=== PATIENT | female | born 1970 | race Caucasian/White ===

== ENCOUNTER → 2016-11-06 | Outpatient (CLI) | payer BC ==
--- NOTE | 2016-11-06 17:15 | CT ---
EXAMINATION TYPE: CT Chest Abd Pelvis w con DATE OF EXAM: 11/06/2016 4:55 PM COMPARISON: Previous study dated 05/13/2016 HISTORY: Pt states of follow up for ovarian CA. CT DLP: 1589 mGycm Automated exposure control for dose reduction was used. TECHNIQUE: Helical acquisition through the abdomen and pelvis was obtained without oral contrast but following the intravenous administration of 100 mL of Omnipaque 300. The data was formatted in the a xial, coronal and sagittal projections. FINDINGS: There is minimal atelectasis at the left lung base. No parenchymal nodules are seen. The patient's hypodense lesion in the left lobe of the thyroid has increased in size from 1.6 cm to 1 .9 cm. There is no significant axillary, internal mammary, mediastinal or hilar lymph nodes identified. Ther e is no pleural or pericardial fluid. The heart is not enlarged. Within the abdomen, the liver, spleen and gallbladder are unremarkable. Both adrenal glands are normal. 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 There is a stable, 1.2 cm cyst in the upper pole of the righ t kidney. The pancreas is unremarkable. There is no significant retroperitoneal, iliac or inguinal adenopathy. The uterus and ovaries of been removed. The bladder is unremarkable. There is extensive diverticulosis of the sigmoid colon and left hemicolon. The appendix is not identi fied. Small bowel loops are normal. Right lower quadrant adenopathy appears to have resolved. There is no free fluid and no free air identified. No bony destructive lesion is seen. There is mild hypertrophic spondylosis in the mid dorsal spine. IMPRESSION: 1. NO EVIDENCE OF TUMOR RECURRENCE OR METASTATIC DISEASE. 2. SLIGHT ENLARGEMENT OF THE PATIENT'S LEFT-SIDED THYROID LESION. 3. HORSESHOE KIDNEY. 4. STABLE, 1.2 CM CYST IN THE UPPER POLE OF THE RIGHT KIDNEY. 5. STATUS POST HYSTERECTOMY AND BILATERAL OOPHORECTOMY. 6. UNCOMPLICATED DIVERTICULOSIS OF THE LEFT SIDE OF THE COLON. 7. RESOLUTION OF THE PATIENT'S RIGHT-SIDED MESENTERIC ADENOPATHY. 8. DEGENERATIVE CHANGES WITHIN THE SPINE.
== END | disposition home or self-care (01) ==
LOC: RADCTMAIN 14:15
PROVIDERS: ATTEND Internal Medicine Hematology & Oncology
DX: C56.1 Malignant neoplasm of right ovary (principal); E07.89 Other specified disorders of thyroid; N28.1 Cyst of kidney, acquired; K57.30 Diverticulosis of large intestine without perforation or abscess without bleeding; R59.0 Localized enlarged lymph nodes; Q63.1 Lobulated, fused and horseshoe kidney; Z90.710 Acquired absence of both cervix and uterus; Z90.721 Acquired absence of ovaries, unilateral
CPT/HCPCS: 71260; 74177; Q9967

== ENCOUNTER → 2017-01-04 | Day surgery (SDC) | payer BC ==
[2016-12-31 17:25] VITALS: BMI 31.6
--- NOTE | 2017-01-03 17:50 | HP ---
Nohemi Trujillo is a 46-year-old patient seen with persistent left shoulder adhesive capsulitis after previously having undergone shoulder arthroscopy. We discussed treatment options. She elected to proceed with manipulation under anesthesia of left shoulder with steroid injection. Consent was obtained. Her past medical history is depression, hypertension, osteoarthritis. Past surgical history is hysterectomy, left shoulder arthroscopy. Her daily medications are: 1. Ativan. 2. Tenormin. 3. Zoloft. 4. Naprosyn. ALLERGIES ARE PENICILLIN, ERYTHROMYCIN. SOCIAL HISTORY: Patient denies current tobacco use. PHYSICAL EVALUATION OF THE LEFT SHOULDER: Her previous arthroscopic portal sites appear well-healed. There is no erythema or hyperemia present. There is no evidence for infective process present. Flexion 80 degrees, abduction is 50 degrees, external rotation is 0 degrees with some weakness. Her distal neurovascular exam is intact. Radiographs of the left shoulder revealed a stable conversion to a flat anterior acromion. IMPRESSION: 1. Left shoulder adhesive capsulitis. 2. Status post left shoulder arthroscopic rotator cuff repair. PLAN: Left shoulder manipulation under anesthesia with steroid injection.
[~2017-01-04] MED LIST: BUPIVACAINE (PF) 0.25% 30 ML VIAL INTRAARTIC ONE; CLINDAMYCIN 900 MG in DEXTROSE 5% IN WATER 50 ML IVPB ONE; DEXAMETHASONE SOD PHOSPHATE 10 MG/ML 1 ML VIAL IV ONE; HYDROcodone/APAP 7.5-325MG 1 EACH TAB PO ONE; HYDROmorphone 1 MG/ML 1 ML SYRINGE IVP ONE; HYDROmorphone 1 MG/ML 1 ML SYRINGE IVP PRN; LACTATED RINGERS 1,000 ML IV SCH; LIDOCAINE 1% 20 ML VIAL (10MG/ML) FOR IV START INTRADERMA PRN; LIDOCAINE 1% INJ 10MG/ML (20 ML MDV) ONE; MIDAZOLAM 2 MG/2 ML VIAL IV PRN; MIDAZOLAM 2 MG/2 ML VIAL IVP ONE; ONDANSETRON 4 MG/2 ML VIAL IVP ONE; PROPOFOL 10 MG/ML 20 ML VIAL IV ONE; fentaNYL (PF) 50 MCG/ML 20 ML VIAL IVP PRN; methylPREDNISolone ACETATE 80 MG/ML 1 ML VIAL INTRAARTIC ONE
[2017-01-04 08:32] VITALS: TEMP 97.6
--- NOTE | 2017-01-04 11:02 | P.OP ---
Date of Procedure: 01/04/17 Preoperative Diagnosis: Left shoulder adhesive capsulitis Postoperative Diagnosis: Left shoulder adhesive capsulitis Procedure(s) Performed: Manipulation under anesthesia left shoulder with steroid injection Anesthesia: MAC Surgeon: Dustin Chu Estimated Blood Loss (ml): 0 Pathology: none sent Condition: stable Disposition: PACU Indications for Procedure: 46-year-old patient seen with left shoulder adhesive capsulitis. After having treatment options discussed, she elected to proceed with manipulation under anesthesia left shoulder with steroid injection. Description of Procedure: The patient was taken to a monitored area. The patient underwent IV sedation by the department of anesthesia. Once sufficient adequate analgesia was noted a manipulation was performed of the left shoulder. I was able to achieve 170 of flexion, 170 of abduction, 65-70 of external rotation. I received adequate internal rotation as well. The anterior aspect left shoulder was now prepped and draped in the normal sterile orthopedic fashion. A mixture of Depo- Medrol and Marcaine were injected into the glenohumeral joint sterile technique. A sterile Band-Aid was applied. The shoulder was again taken through range of motion. The patient was awakened having entire procedure well.
[2017-01-04 11:15] VITALS: RESP 18
[2017-01-04 12:30] VITALS: BP 118/75; PULSE 80
== END ==
LOC: OR 08:15
PROVIDERS: ATTEND Orthopaedic Surgery
DX: M75.02 Adhesive capsulitis of left shoulder (principal); F32.9 Major depressive disorder, single episode, unspecified; I10 Essential (primary) hypertension; M19.90 Unspecified osteoarthritis, unspecified site; Z88.1 Allergy status to other antibiotic agents; Z88.0 Allergy status to penicillin; Z88.8 Allergy status to other drugs, medicaments and biological substances; Z79.1 Long term (current) use of non-steroidal anti-inflammatories (NSAID); Z79.899 Other long term (current) drug therapy; Z98.890 Other specified postprocedural states
CPT/HCPCS: 23700; J2250; J1040; J1100; J2405; J2001; J1170; J2704

== ENCOUNTER → 2017-01-20 | Outpatient (CLI) | payer BC ==
--- NOTE | 2017-01-21 11:37 | MM ---
Reason for exam: screening (asymptomatic). Last mammogram was performed 2 years and 4 months ago. History: Patient is postmenopausal, has history of endometrial cancer at age 44, and has history of ovarian cancer at age 44. Physical Findings: A clinical breast exam by your physician is recommended on an annual basis and results should be correlated with mammographic findings. MG Screening Mammo w CAD Bilateral CC and MLO view(s) were taken. Prior study comparison: September 28, 2014, bilateral MG diagnostic mammo w CAD MARGARETTE. There are scattered fibroglandular densities. Finding: There is a 11.3mm high lobulated mass in the 12 o'clock position of the right breast. New finding since September 28, 2014. ASSESSMENT: Incomplete: need additional imaging evaluation, BI-RAD 0 RECOMMENDATION: Ultrasound of the right breast. [facility] will attempt to contact patient to return for ultrasound.
== END | disposition home or self-care (01) ==
LOC: RADMAMWWP 10:13
PROVIDERS: ATTEND Family Medicine
DX: Z12.31 Encounter for screening mammogram for malignant neoplasm of breast (principal)

== ENCOUNTER → 2017-02-18 | Outpatient (CLI) | payer BC ==
--- NOTE | 2017-02-18 09:41 | US ---
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 Follow up thyroid nodules, history of thyroid cy st aspiration GLAND SIZE: Right Lobe: 4.2 x 1.3 x 1.4 cm Overall Parenchyma: homogenous Left Lobe: 4.3 x 1.6 x 1.7 cm Overall Parenchyma: homogeneous Isthmus Thickness: 0.3 cm NODULES RIGHT: # of nodules measured on right: 1 1. 0.5 X 0.4 x 0.6 cm hypoechoic solid nodule at the mid pole with well-defined margins. This nodul e is wider than tall and shows no intranodular vascularity. Prior size: 0.4 x 0.3 x 0.4 cm LEFT: # of nodules measured on left: 1 1. 1.8 X 1.4 x 1.8 cm hypoechoic mixed nodule at the lower pole with well-defined margins. This nod ule is wider than tall and shows no intranodular vascularity. Prior size: 2.1 x 1.4 x 1.9 cm ISTHMUS: # of nodules measured in the isthmus: 0 Bilateral thyroid nodules as described above, bilateral neck scanned, multiple bilateral hypoechoic v ascular areas with largest on right 2.8cm and largest on left 1.6cm, probable lymph nodes. IMPRESSION: 1. Bilateral thyroid nodules appear essentially stable in size with slight reduction in size of the d ominant nodule on the left. 2. There does appear to be scattered areas of lymphadenopathy within the neck.
== END | disposition home or self-care (01) ==
LOC: RADUSMAIN 07:59
PROVIDERS: ATTEND Internal Medicine Endocrinology, Diabetes & Metabolism
DX: E04.2 Nontoxic multinodular goiter (principal)
CPT/HCPCS: 76536; 84439; 84443

== ENCOUNTER → 2017-05-07 | Outpatient (CLI) | payer BC ==
--- NOTE | 2017-05-07 09:25 | CT ---
EXAMINATION TYPE: CT ChestAbdPelvis w con DATE OF EXAM: 05/07/2017 COMPARISON: 11/06/2016 HISTORY: Ovarian CA follow up CT DLP: 1651.4 mGycm CONTRAST: CT scan of the chest, abdomen and pelvis is performed with Oral Contrast and with IV Contrast, patien t injected with 100 mL of Omnipaque 300. CT Chest: LUNGS: The lungs are clear and free of infiltrate. Small area of left basilar linear atelectasis.. No pulmonary nodule or mass is detected. No pleural effusion or CT evidence of interstitial lung disea se. MEDIASTINUM: Thoracic aorta is of normal caliber. The heart is not enlarged. No evidence for media stinal mass or adenopathy. HILAR STRUCTURES: No evidence for mass. No hilar adenopathy is appreciated. OTHER: Stable left thyroid nodule. CONTRAST CT ABDOMEN AND PELVIS FINDINGS: LIVER/GB: No calcified gallstones. There is evidence of hepatic steatosis. No space occupying hepa tic lesion. Biliary tree is of normal caliber. PANCREAS: No inflammation. No distinct mass. SPLEEN: No splenic enlargement. No lesion seen. ADRENALS: No nodule. No thickening. KIDNEYS/BLADDER: Changes of horseshoe kidney again noted. Right renal cyst identified. No hydronephr osis. No nephrolithiasis. BOWEL: Normal appendix. Normal bowel caliber. No inflammation. Scattered diverticulosis without div erticulitis. GENITAL ORGANS: Hysterectomy and bilateral oophorectomy. No evidence for tumor recurrence. No free fl uid. LYMPH NODES: No greater than 1cm abdominal or pelvic lymph nodes are appreciated. AORTA: No significant abnormality. OSSEOUS STRUCTURES: No significant abnormality is seen. OTHER: No significant additional abnormality is seen. IMPRESSION: 1. No evidence for tumor recurrence or metastatic disease. 2. Hysterectomy and bilateral oophorectomy. 3. Horseshoe kidney. 4. Fatty liver.
== END | disposition home or self-care (01) ==
LOC: RADCTMAIN 06:47
PROVIDERS: ATTEND Internal Medicine Hematology & Oncology
DX: C56.1 Malignant neoplasm of right ovary (principal); K76.0 Fatty (change of) liver, not elsewhere classified; Q63.1 Lobulated, fused and horseshoe kidney; Z90.710 Acquired absence of both cervix and uterus; Z90.722 Acquired absence of ovaries, bilateral
CPT/HCPCS: 71260; 74177; Q9967

== ENCOUNTER → 2017-07-28 | Outpatient (CLI) | payer BC ==
--- NOTE | 2017-07-29 08:09 | MM ---
Reason for exam: follow-up at short interval from prior study. Last mammogram was performed 6 months ago. History: Patient is postmenopausal, has history of endometrial cancer at age 44, and has history of ovarian cancer at age 44. Physical Findings: Nurse did not find any significant physical abnormalities on exam. MG 3D Diag Mammo W/Cad RT CC and MLO view(s) were taken of the right breast. Prior study comparison: January 20, 2017, bilateral MG screening mammo w CAD. September 28, 2014, bilateral MG diagnostic mammo w CAD MARGARETTE. The breast tissue is heterogeneously dense. This may lower the sensitivity of mammography. The previous central asymmetry has decreased in size and became less defined. Medial nodularity at a middle depth has also decreased in size. These results were verbally communicated with the patient and result sheet given to the patient on 07/28/17. ASSESSMENT: Incomplete: need additional imaging evaluation, BI-RAD 0 RECOMMENDATION: Ultrasound of the right breast.
--- NOTE | 2017-07-29 08:12 | USB ---
Reason for exam: additional evaluation requested from abnormal screening. History: Patient is postmenopausal, has history of endometrial cancer at age 44, and has history of ovarian cancer at age 44. US Breast RT Right breast ultrasound includes all four quadrants, the retroareolar region and axilla. Finding demonstrates a 5 x 3 x 4mm oval, mixed lesion at 4 o'clock probably a debris filled cyst, a 4 x 2 x 4mm oval, mixed lesion at 9 o'clock, a 2 x 2 x 3mm oval, cystic, benign lesion at 10 o'clock and a 6 x 4 x 5mm solid, hypoechoic, suspicious lesion at 3 o'clock for which a biopsy is recommended. These results were verbally communicated with the patient and result sheet given to the patient on 07/28/17. ASSESSMENT: Suspicious, BI-RAD 4 RECOMMENDATION: Surgical consultation and ultrasound core biopsy of the right breast. (3 o'clock) Called Dr. Gutierrez with mammographic findings and has scheduled an appointment for the patient for 08/17/17 at 8:[address] Pierce. Biopsy scheduled for 08/06/17 at 11:30. PRELIMINARY REPORT CALLED AND FAXED TO DR. PIERCE ON 07/29/17.
== END | disposition home or self-care (01) ==
LOC: RADMAMWWP 14:19
PROVIDERS: ATTEND Obstetrics & Gynecology
DX: R92.8 Other abnormal and inconclusive findings on diagnostic imaging of breast (principal)
CPT/HCPCS: 76641; G0206; G0279

== ENCOUNTER 2017-08-27 07:14 | Day surgery (SDC) | payer BC ==
[2017-08-25 10:44] VITALS: BMI 33.5
[~2017-08-27 07:14] MED LIST changes: -BUPIVACAINE (PF) 0.25% 30 ML VIAL INTRAARTIC ONE; -CLINDAMYCIN 900 MG in DEXTROSE 5% IN WATER 50 ML IVPB ONE; +HEPARIN SODIUM,PORCINE 5,000 UNIT/ML 1 ML VIAL SQ ONE; -HYDROcodone/APAP 7.5-325MG 1 EACH TAB PO ONE; -HYDROmorphone 1 MG/ML 1 ML SYRINGE IVP ONE; -LACTATED RINGERS 1,000 ML IV SCH; -LIDOCAINE 1% 20 ML VIAL (10MG/ML) FOR IV START INTRADERMA PRN; -LIDOCAINE 1% INJ 10MG/ML (20 ML MDV) ONE; -MIDAZOLAM 2 MG/2 ML VIAL IVP ONE; -PROPOFOL 10 MG/ML 20 ML VIAL IV ONE; +Pre Op ABX Message 1 EACH MISC MISCELLANE ONE; +SCOPOLAMINE 1.5MG/72HR PATCH TRANSDERM ONE; -fentaNYL (PF) 50 MCG/ML 20 ML VIAL IVP PRN; -methylPREDNISolone ACETATE 80 MG/ML 1 ML VIAL INTRAARTIC ONE
[2017-08-27] MEDS ORDERED: LIDOCAINE 1% 20 ML VIAL (10MG/ML) FOR IV START INTRADERMA ONE (08:20)
[2017-08-27] MEDS: LACTATED RINGERS 1,000 ML IV SCH ×2 (08:20→12:10)
--- NOTE | 2017-08-27 09:39 | MM ---
EXAMINATION TYPE: MG diagnostic mammo RT wo CAD DATE OF EXAM: 08/27/2017 COMPARISON: 08/06/2017 HISTORY: Post wire localization TECHNIQUE: Mediolateral and craniocaudal views of the right breast were obtained post wire localizati on under ultrasound guidance FINDINGS: Skin is marked with a BB. The wire is adjacent to the previously placed surgical clip confi rming clip placement. Likewise under ultrasound guidance the wire was evident through the lesion conf irming placement of the wire at the suspicious ultrasound abnormality. Images are reviewed with Dr. Rosette downing car in person by Dr. Herman. IMPRESSION: 1. Successful wire localization for excision.
--- NOTE | 2017-08-27 09:43 | USB ---
EXAMINATION TYPE: US breast localization RT DATE OF EXAM: 08/27/2017 COMPARISON: Ultrasound 08/06/2017, ultrasound 07/28/2017. CLINICAL HISTORY: R92.8 ABNORMAL MAMMOGRAM. Abnormal ultrasound. Pulmonary ultrasound imaging was performed to reidentify the ultrasound abnormality. The hypoechoic area with posterior shadowing is reidentified at this time. Additionally, the clip adjacent to the lesion was identified. The procedure was explained to the patient, the risks complications benefits. All questions were answered. Written and verbal informed consent was obtained. A timeout was performed. The skin was cleansed with Betadine. The skin and deeper breast tissue was anesthetized with 1% lidocaine. Under ultrasound guidance a 7 cm needle was placed through the ultrasound abnormality. The wire was deployed. Patient was imaged with mammography for wire localization confirmation. The post procedure mammographic images were labeled and transferred to the patient to presurgical holding. The patient tolerated the procedure very well. Mammographic images are reviewed with Dr. Thacker by Dr. Herman in person IMPRESSION: 1. Successful ultrasound-guided wire localization with postprocedure mammogram Pathology Results: Benign BREAST, RIGHT, IMAGE GUIDED WIRE LOCALIZATION AND RESECTION: BIOPSY SITE CHANGE AND SCAR. FIBROCYSTIC CHANGE (FOCALLY DENSE AND PROMINENT STROMAL FIBROSIS, CYST FORMATION, ADENOSIS, FIBROADENOMATOUS HYPERPLASIA, COLUMNAR CELL CHANGE, DUCT HYPERPLASIA AND CALCIFICATIONS). Recommendation Follow up mammogram of the right breast in 6 months. NILAM
[2017-08-27] MEDS ORDERED: diphenhydrAMINE 50 MG/ML 1 ML VIAL ONE (12:11)
[2017-08-27] MEDS ORDERED: DEXAMETHASONE SOD PHOS (MDV) 100 MG/10 ML VIAL ONE (12:11)
[2017-08-27] MEDS ORDERED: SUCCINYLCHOLINE CHLORIDE VIAL 200 MG/10 ML VIAL IV ONE (12:11)
[2017-08-27] MEDS ORDERED: MIDAZOLAM 2 MG/2 ML VIAL ONE (12:11)
[2017-08-27] MEDS ORDERED: KETAMINE 10 MG/ML 20 ML VIAL ONE (12:11)
[2017-08-27] MEDS ORDERED: PROPOFOL 10 MG/ML 20 ML VIAL IV ONE (12:11)
[2017-08-27] MEDS ORDERED: fentaNYL (PF) 50 MCG/ML 2 ML AMP ONE (12:11)
[2017-08-27] MEDS ORDERED: CLINDAMYCIN 150 MG/ML 4 ML VIAL IVPB ONE (12:38)
[2017-08-27] MEDS ORDERED: BUPIVACAINE-EPI 0.5%-1:200,000 10 ML VIAL SQ ONE ×2 (12:43)
[2017-08-27] MEDS ORDERED: LACTATED RINGERS 1,000 ML IV ONE (12:52)
[2017-08-27 13:56] VITALS: TEMP 98.3
--- NOTE | 2017-08-27 14:14 | P.OP ---
Date of Procedure: 08/27/17 Preoperative Diagnosis: Abnormal right breast ultrasound Status post ultrasound-guided core biopsy. Discordant pathology and ultrasound finding of right breast abnormality at 3:00 Prior history of ovarian cancer and underwent LAURA and BSO Postoperative Diagnosis: Same Procedure(s) Performed: Right breast wire localizion lumpectomy Anesthesia: MILAGROS Surgeon: Faiza Pierce Estimated Blood Loss (ml): 5 Pathology: other Disposition: PACU Indications for Procedure: 46 years old female with prior history of ovarian cancer status post total abdominal hysterectomy and bilateral salpingo-oophorectomy presented with right breast ultrasound abnormality at 3 o'clock position. This area was biopsied. However there is discordance between pathology and radiology findings and hence decision to proceed with wire localization lumpectomy. Operative Findings: The wire exited the right breast at 3 o'clock position. The specimen was inked as per protocol and sent for radiology confirmation for results of clip and wire. Description of Procedure: The mammogram films from wire localization biopsy were reviewed with radiologist Dr. Herman. The localization wire adjacent to the clip at 3 o clock. The patient was brought to the operating room and placed in supine position with both arms out. IV sedation was given as per anesthesia team. The excess wire was cut and right breast was prepped using ChloraPrep. Sterile drapes were applied. A timeout was performed to verify correct patient, correct procedure and correct side. Patient was confirmed to receive perioperative IV antibiotics, heparin 5000 units subcutaneous injection for DVT prophylaxis and bilateral SCDs. A 3 cm horizontal skin incision was made along natural skin crease overlying the wire. Superior and inferior subcutaneous flaps were raised in the direction of wire. A 2 cm circumferential breast tissue was removed around the wire and the tip of the wire was included in the specimen. The specimen was then labeled with different colors as per the protocol. It was sent off as a specimen for pathology. The resulting defect was irrigated with normal saline and checked for hemostasis. The defect measured 3 x 3 x 5cm. This was closed in 3 layers using 3-0 stratifix, interrupted sutures of 3-0 Vicryl followed by running subcuticular stitches of 4-0 Monocryl. Dermabond skin glue was applied. The sponge, instrument and needle count were correctx2. Phone formation received during surgery that the area of concern along with the clip and wire was included in the specimen. Patient tolerated the procedure well and was taken to post anesthesia care unit in stable condition. Final Pathologic Diagnosis BREAST, RIGHT, IMAGE GUIDED WIRE LOCALIZATION AND RESECTION: BIOPSY SITE CHANGE AND SCAR. FIBROCYSTIC CHANGE (FOCALLY DENSE AND PROMINENT STROMAL FIBROSIS, CYST FORMATION, ADENOSIS, FIBROADENOMATOUS HYPERPLASIA, COLUMNAR CELL CHANGE, DUCT HYPERPLASIA AND CALCIFICATIONS).
[2017-08-27 14:51] VITALS: BP 122/71; PULSE 95; RESP 18
--- NOTE | 2017-09-01 16:58 | MM ---
Mammogram specimen FINDINGS: Single mammographic specimen is presented. The surgical clip is adjacent to the wire within the specimen. Pulmonary results were provided to the operating room at the time of imaging. IMPRESSIONS: 1. Successful wire localization and excision. Pathology Results: Benign BREAST, RIGHT, IMAGE GUIDED WIRE LOCALIZATION AND RESECTION: BIOPSY SITE CHANGE AND SCAR. FIBROCYSTIC CHANGE (FOCALLY DENSE AND PROMINENT STROMAL FIBROSIS, CYST FORMATION, ADENOSIS, FIBROADENOMATOUS HYPERPLASIA, COLUMNAR CELL CHANGE, DUCT HYPERPLASIA AND CALCIFICATIONS). Recommendation Follow up mammogram of the right breast in 6 months. NILAM
== END 2017-08-27 15:20 | disposition home or self-care (01) ==
LOC: OR 07:14
PROVIDERS: ATTEND Surgery
DX: N60.31 Fibrosclerosis of right breast (principal); N60.01 Solitary cyst of right breast; N60.21 Fibroadenosis of right breast; R92.1 Mammographic calcification found on diagnostic imaging of breast; Z90.710 Acquired absence of both cervix and uterus; Z85.43 Personal history of malignant neoplasm of ovary; E78.00 Pure hypercholesterolemia, unspecified; I10 Essential (primary) hypertension; F32.9 Major depressive disorder, single episode, unspecified; F41.9 Anxiety disorder, unspecified; K21.9 Gastro-esophageal reflux disease without esophagitis; Z79.899 Other long term (current) drug therapy; Z88.1 Allergy status to other antibiotic agents; Z88.0 Allergy status to penicillin; Z88.8 Allergy status to other drugs, medicaments and biological substances
CPT/HCPCS: 88307; 76098; 19285; 19301; G0206; J2250; J0330; J1200; J1644; J1100 ×2; J2405; J3010; J2704

== ENCOUNTER → 2017-11-10 | Outpatient (CLI) | payer BC ==
[2017-11-10 17:00] LABS: Blood Urea Nitrogen 17 mg/dL (7-17)
--- NOTE | 2017-11-11 10:05 | CT ---
EXAMINATION TYPE: CT ChestAbdPelvis w con DATE OF EXAM: 11/11/2017 COMPARISON: 05/07/2017 HISTORY: Follow-up ovarian cancer. CT DLP: 1281.7 mGycm CONTRAST: CT scan of the chest, abdomen and pelvis is performed with Oral Contrast and with IV Contrast, patien t injected with 100 mL of Omnipaque 300. CT Chest: LUNGS: The lungs are clear and free of infiltrate or atelectasis. No pulmonary nodule or mass is det ected. No pleural effusion or CT evidence of interstitial lung disease. MEDIASTINUM: Thoracic aorta is of normal caliber. The heart is not enlarged. No evidence for media stinal mass or adenopathy. HILAR STRUCTURES: No evidence for mass. No hilar adenopathy is appreciated. OTHER: No significant abnormality. CONTRAST CT ABDOMEN AND PELVIS FINDINGS: LIVER/GB: No calcified gallstones. Hepatic steatosis with mild hepatomegaly. No space occupying hep atic lesion. Biliary tree is of normal caliber. PANCREAS: No inflammation. No distinct mass. SPLEEN: No splenic enlargement. No lesion seen. ADRENALS: No nodule. No thickening. KIDNEYS/BLADDER: Horseshoe kidney with tiny cyst upper pole right kidney. No hydronephrosis. No neph rolithiasis. BOWEL: Normal appendix. Normal bowel caliber. No inflammation. GENITAL ORGANS: Postoperative changes of hysterectomy and bilateral oophorectomy without evidence for tumor recurrence. LYMPH NODES: No greater than 1cm abdominal or pelvic lymph nodes are appreciated. AORTA: No significant abnormality. OSSEOUS STRUCTURES: No significant abnormality is seen. OTHER: No significant additional abnormality is seen. IMPRESSION: 1. No evidence for metastatic disease or recurrent disease. 2. Horseshoe kidney. 3. Hepatic steatosis with mild hepatomegaly.
== END | disposition home or self-care (01) ==
LOC: RADCTMAIN 14:46
PROVIDERS: ATTEND Internal Medicine Hematology & Oncology
DX: C56.9 Malignant neoplasm of unspecified ovary (principal); Q63.1 Lobulated, fused and horseshoe kidney; K76.0 Fatty (change of) liver, not elsewhere classified; R16.0 Hepatomegaly, not elsewhere classified
CPT/HCPCS: 82565; 84520; 71260; 74177; 36415; Q9967

== ENCOUNTER → 2018-02-11 | Outpatient (CLI) | payer BC ==
--- NOTE | 2018-02-14 07:45 | MM ---
Reason for exam: follow-up at short interval from prior study. Last mammogram was performed 6 months ago. History: Patient is postmenopausal, has history of endometrial cancer at age 44, and has history of ovarian cancer at age 44. Benign US breast localization RT of the right breast, August 27, 2017. Benign US biopsy breast VAD RT of the right breast, August 06, 2017. Physical Findings: Nurse did not find any significant physical abnormalities on exam. MG 3D Diag Mammo W/Cad MARGARETTE Bilateral CC and MLO view(s) were taken. Prior study comparison: August 27, 2017, right breast MG diagnostic mammo RT wo CAD. August 06, 2017, right breast MG diagnostic mammo RT wo CAD. The breast tissue is heterogeneously dense. This may lower the sensitivity of mammography. Finding: There are clips, architectural distortion in the lower quadrant of the right breast. Asymmetric breast tissue left stable medial aspect. These results were verbally communicated with the patient and result sheet given to the patient on 02/11/18. ASSESSMENT: Benign, BI-RAD 2 RECOMMENDATION: Routine screening mammogram of both breasts in 1 year.
== END | disposition home or self-care (01) ==
LOC: RADMAMWWP 14:29
PROVIDERS: ATTEND Family Medicine
DX: R92.8 Other abnormal and inconclusive findings on diagnostic imaging of breast (principal)
CPT/HCPCS: 77066; G0279

== ENCOUNTER → 2018-03-04 | Outpatient (CLI) | payer BC ==
--- NOTE | 2018-03-04 15:53 | US ---
EXAMINATION TYPE: US thyroid st tissue head/neck DATE OF EXAM: 03/04/2018 COMPARISON: US 02/18/2017 CLINICAL HISTORY: E04.2 GOITER. GLAND SIZE: Right Lobe: 3.6 x 1.6 x 1.1 cm Overall Parenchyma: homogenous Left Lobe: 3.8 x 1.5 x 1.1 cm Overall Parenchyma: homogeneous Isthmus Thickness: 0.2 cm NODULES RIGHT: # of nodules measured on right: 2 1. 0.4 X 0.3 x 0.3 cm hypoechoic mixed nodule at the mid pole with well-defined margins. This nodu le is wider as is tall and shows no intranodular vascularity. Prior size: 0.5 x 0.4 x 0.6 cm 2. 0.4 X 0.5 x 0.3 cm hypoechoic mixed nodule at the lower pole with well-defined margins. This nod ule is wider than tall and shows no intranodular vascularity. Prior size: not seen LEFT: # of nodules measured on left: 1 1. 0.9 X 0.9 x 0.9 cm hypoechoic mixed nodule at the lower pole with poorly defined margins. This nodule is wider as is tall and shows no intranodular vascularity. Prior size: 1.8 x 1.4 x 1.8 cm ISTHMUS: # of nodules measured in the isthmus: 0 Bilateral neck scanned, no evidence of lymphadenopathy. IMPRESSION: No interval enlargement of the bilateral thyroid nodules in comparison to the exam of 02/18/2017. An ad ditional 5 mm right thyroid nodule seen on today's examination. Continued surveillance is recommended .
[2018-03-04 16:07] LABS: T4, Free (Free Thyroxine) 1.05 ng/dL (0.78-2.19)
== END | disposition home or self-care (01) ==
LOC: RADUSWWP 14:43
PROVIDERS: ATTEND Internal Medicine Endocrinology, Diabetes & Metabolism
DX: E04.1 Nontoxic single thyroid nodule (principal)
CPT/HCPCS: 76536; 84439; 84443

== ENCOUNTER 2018-04-21 04:47 | Inpatient (IN) | payer BC ==
[2018-04-21 05:39] LABS: HCT 44.1 % (34.0-46.0); HGB 14.9 gm/dL (11.4-16.0); MCHC 33.8 g/dL (31.0-37.0); MCV 82.8 fL (80.0-100.0); Mean Platelet Volume 6.6; Platelet Count 282 k/uL (150-450); RBC 5.32 m/uL (3.80-5.40); RDW 13.9 % (11.5-15.5); WBC 3.4 k/uL (3.8-10.6)
[2018-04-21 05:49] LABS: Albumin 4.4 g/dL (3.5-5.0); Amylase 61 U/L (30-110); Anion Gap 18 mmol/L; Calcium 9.7 mg/dL (8.4-10.2); Carbon Dioxide 20 mmol/L (22-30); Chloride 104 mmol/L (98-107); Glucose 169 mg/dL (74-99); Lipase <10 U/L (23-300); Sodium 142 mmol/L (137-145); Total Bilirubin 1.9 mg/dL (0.2-1.3); Total Protein 7.8 g/dL (6.3-8.2)
[2018-04-21 05:53] LABS: Blood Urea Nitrogen 19 mg/dL (7-17); Potassium 3.8 mmol/L (3.5-5.1)
[2018-04-21 05:54] LABS: ALT 53 U/L (9-52); AST 49 U/L (14-36); Alkaline Phosphatase 128 U/L (38-126)
--- NOTE | 2018-04-21 05:56 | XR ---
EXAMINATION TYPE: XR KUB DATE OF EXAM: 04/21/2018 COMPARISON: 08/19/2014 HISTORY: Abdominal pain TECHNIQUE: 2 views FINDINGS: There is no sign of intestinal obstruction or pneumoperitoneum. There is a surgical clip in the left mid abdomen. There are clips apparently from cholecystectomy. There is blunting of left cos tophrenic angle. There is no evidence of a mass. IMPRESSION: Nonacute abdomen. Left pleural effusion and possible left lower lobe infiltrate.
[2018-04-21 06:03] LABS: Band Neutrophils % 15 %; Lymphocytes # (M) 0.48 k/uL (1.0-4.8); Monocytes # (M) 0.14 k/uL (0-1.0); Neutrophils % (M) 67 %; Nucleated Red Blood Cells 0 /100 WBC (0-0); Total Cells Counted 100
[2018-04-21] MEDS ORDERED: SODIUM CHLORIDE 0.9% 1,000 ML IV ONE ×2 (06:06→06:53)
[2018-04-21] MEDS ORDERED: MORPHINE SULFATE 2 MG/ML SYRINGE IV STA (06:06)
[2018-04-21] MEDS ORDERED: ONDANSETRON 4 MG/2 ML VIAL IVP STA (06:13)
[2018-04-21 06:19] LABS: Granular Casts,Urine 28 /lpf (0); Hyaline Casts,Urine 9 /lpf (0-2); Mucus,Urine Moderate /hpf; RBC,Urine 21 /hpf (0-5); Squamous Epithelial Cell,Urine 15 /hpf (0-4); WBC,Urine 70 /hpf (0-5)
--- NOTE | 2018-04-21 06:50 | CT ---
EXAMINATION TYPE: CT abdomen pelvis wo con DATE OF EXAM: 04/21/2018 COMPARISON: 11/10/2017 HISTORY: Abdominal pain for 4 days, diarrhea for [address] DLP: 1037 mGycm Automated exposure control for dose reduction was used. TECHNIQUE: Helical acquisition of images was performed from the lung bases through the pelvis. FINDINGS: There is patchy infiltrate and atelectasis at the lung bases. There is no pleural effusion. Heart siz e is normal. There is a small pneumoperitoneum. Liver shows no focal defect. Gallbladder is large and measures 3.8 cm in diameter. There is no evidence of a splenic mass. There is no pancreatic mass. There is no adrenal mass. There is horseshoe kidney. There is no hydronephrosis. There is extensive f at stranding around the sigmoid colon with numerous diverticula. There is sigmoid colon wall thickeni ng. There are clips in the right lower quadrant probably from appendectomy. I see no bony destructive process. Lumbar spine is intact. Bladder is empty. There are large bowel fluid levels. IMPRESSION: EXTENSIVE SIGMOID DIVERTICULOSIS WITH ALSO EVIDENCE OF SIGNIFICANT DIVERTICULITIS. INFLAMMATORY BALLESTEROS ES IN THE LARGE BOWEL MESENTERY. THERE IS SUGGESTION ALSO OF SOME MILD SMALL BOWEL INTESTINAL WALL TH ICKENING THAT COULD RELATE TO PERITONITIS. PNEUMOPERITONEUM. THIS IS CONSISTENT WITH DIVERTICULUM RUP TURE. MODERATE INFILTRATE AND ATELECTASIS AT THE LUNG BASES. THIS EXAM WAS DISCUSSED WITH ER PHYSICIAN AT 6 :45 AM.
[2018-04-21] MEDS ORDERED: AZTREONAM 2 GM in SODIUM CHLORIDE 0.9% 100 ML IVPB STA (06:52)
[2018-04-21] MEDS ORDERED: metroNIDAZOLE-NS PMX 500 MG in SALINE 1 100ML.BAG IVPB STA (06:53)
--- NOTE | 2018-04-21 06:56 | ED ---
Abdominal Pain HPI - General Chief Complaint: Abdominal Pain Stated Complaint: Abdominal Pain Time Seen by Provider: 04/21/18 05:37 Source: patient, family Mode of arrival: wheelchair Limitations: no limitations - History of Present Illness Initial Comments: This patient is a 47-year-old woman presenting to be evaluated for diffuse abdominal pain. Patient states that she had had a couple of days of constipation at the weekend and then she began having some diffuse abdominal pain as well as nausea and diarrhea. This got worse over the following day, and she has not been taking much in way of any oral intake. This morning she was feeling lightheaded and dizzy in addition to the pain and presents for evaluation. MD Complaint: abdominal pain Onset/Timin -: days(s) Location: diffuse Radiation: none Severity: severe Quality: aching Consistency: constant Improves With: nothing Worsens With: nothing Associated Symptoms: nausea, diarrhea - Related Data Home Medications Medication Instructions Recorded Confirmed Sertraline [Zoloft] 25 mg PO QAM 12/22/15 04/21/18 Acetaminophen Tab [Tylenol Tab] 650 mg PO Q6H PRN 04/21/18 04/21/18 LORazepam [Ativan] 0.5 mg PO BID PRN 04/21/18 04/21/18 Metoprolol Succinate (ER) [Toprol 12.5 mg PO DAILY 04/21/18 04/21/18 Xl] Multivitamin,Therapeutic [Thera] 1 tab PO DAILY 04/21/18 04/21/18 Phentermine HCl [Adipex-P] 37.5 mg PO QAM 04/21/18 04/21/18 Allergies Allergy/AdvReac Type Severity Reaction Status Date / Time erythromycin base Allergy Rash/Hives Verified 04/21/18 11:50 [Erythromycin Base] Penicillins Allergy Rash/Hives Verified 04/21/18 11:50 tamoxifen Allergy Anaphylaxis Verified 04/21/18 11:50 Review of Systems ROS Statement: Those systems with pertinent positive or pertinent negative responses have been documented in the HPI. ROS Other: All systems not noted in ROS Statement are negative. Constitutional: Reports: chills Respiratory: Denies: cough, dyspnea, wheezes Cardiovascular: Denies: chest pain, palpitations, syncope Gastrointestinal: Reports: abdominal pain, nausea, diarrhea. Denies: vomiting, melena, hematochezia Genitourinary: Denies: dysuria, hematuria Musculoskeletal: Denies: back pain Skin: Denies: rash Neurological: Denies: headache, weakness, numbness Past Medical History Past Medical History: Cancer, Musculoskeletal Disorder Additional Past Medical History / Comment(s): Endometrial Ovarian Cancer 2013. TACHYCARDIA History of Any Multi-Drug Resistant Organisms: None Reported Past Surgical History: Appendectomy, Breast Surgery, Hysterectomy, Orthopedic Surgery Additional Past Surgical History / Comment(s): 10/02/16 LT Rotator cuff sx; HYTERECTOMY 2013 SECONDARY OVARIAN CA., RT BREAST BX, ANAL SX AT , Past Anesthesia/Blood Transfusion Reactions: Motion Sickness, Postoperative Nausea & Vomiting (PONV) Additional Past Anesthesia/Blood Transfusion Reaction / Comment(s): STATES SEVERE NAUSEA LASTED FOR ONE MONTH POST HYSTERECTOMY. DIFFICULTY WAKING UP AFTER SURGERY PER PT. Past Psychological History: Anxiety, Depression Smoking Status: Never smoker - Past Family History Mother Family Medical History: Cancer Additional Family Medical History / Comment(s): THYROID Father Additional Family Medical History / Comment(s): Father from bowel blockage at the age of 69yrs. General Exam Limitations: no limitations General appearance: alert, in distress Head exam: Present: atraumatic, normocephalic Eye exam: Present: normal appearance. Absent: scleral icterus, conjunctival injection ENT exam: Present: mucous membranes dry Neck exam: Present: normal inspection Respiratory exam: Present: normal lung sounds bilaterally. Absent: respiratory distress, wheezes, rales, rhonchi, stridor Cardiovascular Exam: Present: normal rhythm, tachycardia (Rate approximately 128 at my exam), normal heart sounds. Absent: systolic murmur, diastolic murmur , rubs, gallop GI/Abdominal exam: Present: tenderness, guarding, rebound, diminished bowel sounds. Absent: soft, rigid, mass, pulsatile mass, hernia Extremities exam: Present: normal inspection, normal capillary refill. Absent: pedal edema, calf tenderness Back exam: Present: normal inspection. Absent: CVA tenderness (R), CVA tenderness (L) Neurological exam: Present: alert Skin exam: Present: warm, dry, intact, normal color. Absent: rash Course Vital Signs 04/21/18 04/21/18 04/21/18 04:51 05:53 06:38 Temperature 97.7 F Pulse Rate 138 H 92 121 H Respiratory 20 18 18 Rate Blood Pressure 96/62 98/54 128/71 O2 Sat by Pulse 95 96 96 Oximetry 04/21/18 04/21/18 06:51 07:13 Temperature 98 F Pulse Rate 116 H Respiratory 16 Rate Blood Pressure 119/74 O2 Sat by Pulse 95 Oximetry Medical Decision Making - Medical Decision Making Patient's 47-year-old woman here with abdominal pain. She is sent for computed tomography scan which does confirm there is some free air in the abdomen. Case is discussed with Dr. Staton, surgeon on-call tonight, and he will come see the patient. She is started on IV antibiotic therapy. - Lab Data Result diagrams: 04/22/18 06:21 04/22/18 06:21 Lab Results 04/21/18 04/21/18 04/21/18 Range/Units 05:10 05:10 05:10 WBC 3.4 L (3.8-10.6) k/uL RBC 5.32 (3.80-5.40) m/uL Hgb 14.9 (11.4-16.0) gm/dL Hct 44.1 (34.0-46.0) % MCV 82.8 (80.0-100.0) fL MCH 28.0 (25.0-35.0) pg MCHC 33.8 (31.0-37.0) g/dL RDW 13.9 (11.5-15.5) % Plt Count 282 (150-450) k/uL Neutrophils % (Manual) 67 % Band Neutrophils % 15 % Lymphocytes % (Manual) 14 % Monocytes % (Manual) 4 % Neutrophils # (Manual) 2.70 (1.3-7.7) k/uL Lymphocytes # (Manual) 0.48 L (1.0-4.8) k/uL Monocytes # (Manual) 0.14 (0-1.0) k/uL Nucleated RBCs 0 (0-0) /100 WBC Manual Slide Review Performed Sodium 142 (137-145) mmol/L Potassium 3.8 (3.5-5.1) mmol/L Chloride 104 (98-107) mmol/L Carbon Dioxide 20 L (22-30) mmol/L Anion Gap 18 mmol/L BUN 19 H (7-17) mg/dL Creatinine 0.94 (0.52-1.04) mg/dL Est GFR (CKD-EPI)AfAm 83 (>60 ml/min/1.73 sqM) Est GFR (CKD-EPI)NonAf 72 (>60 ml/min/1.73 sqM) Glucose 169 H (74-99) mg/dL Plasma Lactic Acid Itz 1.6 (0.7-2.0) mmol/L Calcium 9.7 (8.4-10.2) mg/dL Total Bilirubin 1.9 H (0.2-1.3) mg/dL AST 49 H (14-36) U/L ALT 53 H (9-52) U/L Alkaline Phosphatase 128 H (38-126) U/L Total Protein 7.8 (6.3-8.2) g/dL Albumin 4.4 (3.5-5.0) g/dL Amylase 61 (30-110) U/L Lipase <10 L (23-300) U/L Urine Color Urine Appearance (Clear) Urine pH (5.0-8.0) Ur Specific Mobile (1.001-1.035) Urine Protein (Negative) Urine Glucose (UA) (Negative) Urine Ketones (Negative) Urine Blood (Negative) Urine Nitrite (Negative) Urine Bilirubin (Negative) Urine Urobilinogen (<2.0) mg/dL Ur Leukocyte Esterase (Negative) Urine RBC (0-5) /hpf Urine WBC (0-5) /hpf Ur Squamous Epith Cells (0-4) /hpf Hyaline Casts (0-2) /lpf Granular Casts (0) /lpf Urine Mucus (None) /hpf 04/21/18 Range/Units 05:55 WBC (3.8-10.6) k/uL RBC (3.80-5.40) m/uL Hgb (11.4-16.0) gm/dL Hct (34.0-46.0) % MCV (80.0-100.0) fL MCH (25.0-35.0) pg MCHC (31.0-37.0) g/dL RDW (11.5-15.5) % Plt Count (150-450) k/uL Neutrophils % (Manual) % Band Neutrophils % % Lymphocytes % (Manual) % Monocytes % (Manual) % Neutrophils # (Manual) (1.3-7.7) k/uL Lymphocytes # (Manual) (1.0-4.8) k/uL Monocytes # (Manual) (0-1.0) k/uL Nucleated RBCs (0-0) /100 WBC Manual Slide Review Sodium (137-145) mmol/L Potassium (3.5-5.1) mmol/L Chloride (98-107) mmol/L Carbon Dioxide (22-30) mmol/L Anion Gap mmol/L BUN (7-17) mg/dL Creatinine (0.52-1.04) mg/dL Est GFR (CKD-EPI)AfAm (>60 ml/min/1.73 sqM) Est GFR (CKD-EPI)NonAf (>60 ml/min/1.73 sqM) Glucose (74-99) mg/dL Plasma Lactic Acid Itz (0.7-2.0) mmol/L Calcium (8.4-10.2) mg/dL Total Bilirubin (0.2-1.3) mg/dL AST (14-36) U/L ALT (9-52) U/L Alkaline Phosphatase (38-126) U/L Total Protein (6.3-8.2) g/dL Albumin (3.5-5.0) g/dL Amylase (30-110) U/L Lipase (23-300) U/L Urine Color Yellow Urine Appearance Slightly Cloudy H (Clear) Urine pH 6.0 (5.0-8.0) Ur Specific Mobile 1.035 (1.001-1.035) Urine Protein 3+ H (Negative) Urine Glucose (UA) Negative (Negative) Urine Ketones 1+ H (Negative) Urine Blood Negative (Negative) Urine Nitrite Negative (Negative) Urine Bilirubin 2+ H (Negative) Urine Urobilinogen 4.0 (<2.0) mg/dL Ur Leukocyte Esterase Moderate (Negative) Urine RBC 21 H (0-5) /hpf Urine WBC 70 H (0-5) /hpf Ur Squamous Epith Cells 15 H (0-4) /hpf Hyaline Casts 9 H (0-2) /lpf Granular Casts 28 (0) /lpf Urine Mucus Moderate H (None) /hpf Critical Care Time Critical Care Time: Yes (30 minutes) Disposition Clinical Impression: Diverticulitis, Abdominal pain Disposition: ADMITTED IP TO THIS [facility] Condition: Serious
[2018-04-21] MEDS ORDERED: MORPHINE SULFATE 2 MG/ML SYRINGE IV PRN (07:02)
[2018-04-21] MEDS ORDERED: NALOXONE 0.4 MG/ML 1 ML VIAL IV PRN ×2 (07:02→12:53)
[2018-04-21 07:09] LABS: Appearance,Urine Slightly Cloudy (Clear); Color,Urine Yellow
[2018-04-21 07:10] LABS: Specific Gravity,Urine 1.035 (1.001-1.035)
[2018-04-21 07:11] LABS: Glucose,Urine (UA) Negative (Negative); Protein,Urine 3+ (Negative)
[2018-04-21 07:12] LABS: Bilirubin,Urine 2+ (Negative); Blood,Urine Negative (Negative); Ketones,Urine 1+ (Negative)
[2018-04-21 07:13] LABS: Leukocyte Esterase,Urine Moderate (Negative); Nitrite,Urine Negative (Negative)
[2018-04-21] MEDS: metroNIDAZOLE-NS PMX 500 MG in SALINE 1 100ML.BAG IVPB SCH ×2 (08:19→18:05)
--- NOTE | 2018-04-21 09:10 | P.GSHP ---
History of Present Illness H&P Date: 04/21/18 47-year-old female presents to the hospital after 2 days of abdominal pain that has been worsening. She states that she has had pain in her bilateral lower quadrants that has begin to increase in severity. She complains of some nausea episodes but denies any emesis. She also complains of some diarrhea episodes. She states that due to the pain, she began to feel shaky and was having sweats. It was at this point that she presented to the hospital. On workup in the emergency department, she was found to have. She states that with the ring of antibiotics that her pain is somewhat relieved. She states that the pain is still very intense. She denies ever having a colonoscopy. She states her only abdominal surgical history is a hysterectomy. She states that she has never had a severe episode of diverticulitis in the past. - Review of Systems All systems: negative Past Medical History Past Medical History: Cancer Additional Past Medical History / Comment(s): 2013 Endometrial Ovarian Cancer 2013 with surgery and chemo, tachycardia. History of Any Multi-Drug Resistant Organisms: None Reported Past Surgical History: Appendectomy, Breast Surgery, Hysterectomy, Orthopedic Surgery Additional Past Surgical History / Comment(s): 10/02/16 LT Rotator cuff sx and then manipulation, HYTERECTOMY 2013 SECONDARY OVARIAN CA., RT BREAST BENIGN BX , ANAL SX AT , Past Anesthesia/Blood Transfusion Reactions: Motion Sickness, Postoperative Nausea & Vomiting (PONV) Additional Past Anesthesia/Blood Transfusion Reaction / Comment(s): STATES SEVERE NAUSEA LASTED FOR ONE MONTH POST HYSTERECTOMY. DIFFICULTY WAKING UP AFTER SURGERY PER PT. Smoking Status: Never smoker - Past Family History Mother Family Medical History: Cancer Additional Family Medical History / Comment(s): THYROID CA Father Additional Family Medical History / Comment(s): Father from bowel blockage at the age of 69yrs. Medications and Allergies Home Medications Medication Instructions Recorded Confirmed Type Atenolol [Tenormin] 25 mg PO QAM 12/22/15 08/25/17 History Sertraline [Zoloft] 25 mg PO QAM 12/22/15 08/25/17 History Cholecalciferol [Vitamin D3] 1,000 unit PO DAILY 10/02/16 08/25/17 History [place]-3 Fatty Acids/Fish Oil [Fish 1 each PO HS 12/31/16 08/25/17 History Oil 1,000 mg Softgel] Tumeric (Unsure Dose) 1 cap PO HS 12/31/16 08/25/17 History Docusate [Colace] 100 mg PO BID #30 capsule 08/27/17 Rx Hydrocodone/Acetaminophen [[place] 1 each PO Q6HR PRN #10 tab 08/27/17 Rx 5-325] Allergies Allergy/AdvReac Type Severity Reaction Status Date / Time erythromycin base Allergy Rash/Hives Verified 04/21/18 04:54 [Erythromycin Base] Penicillins Allergy Rash/Hives Verified 04/21/18 04:54 tamoxifen Allergy Anaphylaxis Verified 04/21/18 04:54 Surgical - Exam Osteopathic Statement: *. No significant issues noted on an osteopathic structural exam other than those noted in the History and Physical/Consult. Vital Signs Temp Pulse Resp BP Pulse Ox 97.7 F 138 H 20 96/62 95 04/21/18 04:51 04/21/18 04:51 04/21/18 04:51 04/21/18 04:51 04/21/18 04:51 - General well nourished, no distress - Neck trachea midline - Respiratory No difficulty with respiration - Abdomen Soft, tender to palpation in bilateral lower quadrant, tender to percussion in bilateral lower quadrant, nondistended, positive rebound tenderness - Psychiatric oriented to time, oriented to person, oriented to place, speech is normal Results - Labs 04/21/18 05:10 04/21/18 05:10 Abnormal Lab Results - Last 24 Hours (Table) 04/21/18 04/21/18 04/21/18 Range/Units 05:10 05:10 05:55 WBC 3.4 L (3.8-10.6) k/uL Lymphocytes # (Manual) 0.48 L (1.0-4.8) k/uL Carbon Dioxide 20 L (22-30) mmol/L BUN 19 H (7-17) mg/dL Glucose 169 H (74-99) mg/dL Total Bilirubin 1.9 H (0.2-1.3) mg/dL AST 49 H (14-36) U/L ALT 53 H (9-52) U/L Alkaline Phosphatase 128 H (38-126) U/L Lipase <10 L (23-300) U/L Urine Appearance Slightly Cloudy H (Clear) Urine Protein 3+ H (Negative) Urine Ketones 1+ H (Negative) Urine Bilirubin 2+ H (Negative) Urine RBC 21 H (0-5) /hpf Urine WBC 70 H (0-5) /hpf Ur Squamous Epith Cells 15 H (0-4) /hpf Hyaline Casts 9 H (0-2) /lpf Urine Mucus Moderate H (None) /hpf Diabetes panel 04/21/18 Range/Units 05:10 Sodium 142 (137-145) mmol/L Potassium 3.8 (3.5-5.1) mmol/L Chloride 104 (98-107) mmol/L Carbon Dioxide 20 L (22-30) mmol/L BUN 19 H (7-17) mg/dL Creatinine 0.94 (0.52-1.04) mg/dL Glucose 169 H (74-99) mg/dL Calcium 9.7 (8.4-10.2) mg/dL AST 49 H (14-36) U/L ALT 53 H (9-52) U/L Alkaline Phosphatase 128 H (38-126) U/L Total Protein 7.8 (6.3-8.2) g/dL Albumin 4.4 (3.5-5.0) g/dL Calcium panel 04/21/18 Range/Units 05:10 Calcium 9.7 (8.4-10.2) mg/dL Albumin 4.4 (3.5-5.0) g/dL Pituitary panel 04/21/18 Range/Units 05:10 Sodium 142 (137-145) mmol/L Potassium 3.8 (3.5-5.1) mmol/L Chloride 104 (98-107) mmol/L Carbon Dioxide 20 L (22-30) mmol/L BUN 19 H (7-17) mg/dL Creatinine 0.94 (0.52-1.04) mg/dL Glucose 169 H (74-99) mg/dL Calcium 9.7 (8.4-10.2) mg/dL Adrenal panel 04/21/18 Range/Units 05:10 Sodium 142 (137-145) mmol/L Potassium 3.8 (3.5-5.1) mmol/L Chloride 104 (98-107) mmol/L Carbon Dioxide 20 L (22-30) mmol/L BUN 19 H (7-17) mg/dL Creatinine 0.94 (0.52-1.04) mg/dL Glucose 169 H (74-99) mg/dL Calcium 9.7 (8.4-10.2) mg/dL Total Bilirubin 1.9 H (0.2-1.3) mg/dL AST 49 H (14-36) U/L ALT 53 H (9-52) U/L Alkaline Phosphatase 128 H (38-126) U/L Total Protein 7.8 (6.3-8.2) g/dL Albumin 4.4 (3.5-5.0) g/dL - Imaging CT scan - abdomen: report reviewed, image reviewed (There is a moderate amount of inflammation to the sigmoid colon along with some notable pneumoperitoneum) CT scan - pelvis: report reviewed, image reviewed Assessment and Plan (1) Diverticulitis Narrative/Plan: 47-year-old female with ruptured diverticulitis - Patient continues to need IV fluid resuscitation, we'll continue with boluses and IV fluids - Antibiotics, patient was started on antibiotics in the emergency department and will continue on the floor - Keep patient nothing by mouth - Insert urinary Burch catheter - Plan for operating room for a Abraham's procedure Current Visit: Yes Status: Acute Code(s): K57.92 - DVTRCLI OF INTEST, PART UNSP, W/O PERF OR ABSCESS W/O BLEED SNOMED Code(s): 787215998
[2018-04-21] MEDS ORDERED: IV FLUID CONTINUATION 1,000 ML IV ONE (11:50)
[2018-04-21] MEDS ORDERED: ONDANSETRON 4 MG/2 ML VIAL IVP ONE (12:25)
[2018-04-21] MEDS ORDERED: DEXAMETHASONE SOD PHOSPHATE 10 MG/ML 1 ML VIAL IV ONE (12:28)
[2018-04-21] MEDS ORDERED: fentaNYL (PF) 50 MCG/ML 2 ML AMP IV ONE (12:30)
[2018-04-21] MEDS ORDERED: MIDAZOLAM 2 MG/2 ML VIAL IV ONE (12:30)
[2018-04-21] MEDS ORDERED: HEPARIN SODIUM,PORCINE 5,000 UNIT/ML 1 ML VIAL SQ ONE (12:53)
[2018-04-21] MEDS ORDERED: PROPOFOL 10 MG/ML 20 ML VIAL IV ONE (13:24)
[2018-04-21] MEDS ORDERED: LIDOCAINE 1% INJ 10MG/ML (20 ML MDV) ONE (13:24)
[2018-04-21] MEDS ORDERED: VECURONIUM 10 MG VIAL IV ONE (13:24)
[2018-04-21] MEDS ORDERED: GLYCOPYRROLATE 0.2 MG/ML 2 ML VIAL ONE (13:24)
[2018-04-21] MEDS ORDERED: NEOSTIGMINE 1 MG/ML 10 ML VIAL ONE (13:24)
[2018-04-21] MEDS ORDERED: fentaNYL (PF) 50 MCG/ML 2 ML AMP ONE (13:24)
[2018-04-21] MEDS ORDERED: MIDAZOLAM 2 MG/2 ML VIAL ONE (13:24)
[2018-04-21] MEDS ORDERED: SUCCINYLCHOLINE CHLORIDE 100 MG/5 ML SYR IV ONE (13:24)
[2018-04-21] MEDS ORDERED: LACTATED RINGERS 1,000 ML IV ONE ×3 (13:45→15:19)
[2018-04-21 14:43] VITALS: BMI 31.7
--- NOTE | 2018-04-21 15:42 | P.OP ---
Date of Procedure: 04/21/18 Preoperative Diagnosis: Perforated diverticulitis Postoperative Diagnosis: Perforated sigmoid diverticulitis with intraperitoneal stool and pus Procedure(s) Performed: Abraham's procedure - sigmoid colectomy with end colostomy creation Anesthesia: MILAGROS Surgeon: Mariano Staton Estimated Blood Loss (ml): 125 Pathology: other (Sigmoid colon) Condition: stable Disposition: floor Indications for Procedure: 47-year-old female presented to the emergency department with 3 days of abdominal pain that was increasing in intensity. On exam, the patient did have peritoneal signs and on CT of the abdomen and pelvis which shown to have ruptured diverticulitis. Secondary to this, and expiratory laparotomy with bowel resection was planned. The patient was explained the risks, benefits and alternatives to the procedure and did provide consent prior to attending the operating suite. Operative Findings: Perforated diverticulitis with multiple fluid pockets full of pus and stool, dilated small bowel Description of Procedure: the patient the patient was placed in supine position and general endotracheal anesthesia was induced. Tacho were performed using both preinduction and pre- incision safety checklists to verify correct patient, procedure, site and additional clinical information prior to beginning the procedure. Preoperative antibiotics and subcutaneous heparin was given. A urinary catheter was placed and orogastric tube was placed. The abdomen was prepped and draped in the usual sterile fashion. A vertical midline incision was made from above the umbilicus to the pubis. This was deepened through the subcutaneous tissues to the level of the fascia. The linea alba was identified and incised, the peritoneal cavity entered. The abdomen was explored. There were notable adhesions from her previous laparotomy and these were lysed sharply under direct vision with Metzenbaum scissors. A sigmoid colon perforation with surrounding purulence and stool in the left lower quadrant was found. Suction was used to clear the multiple pockets of purulence and feculent material. The small bowel was inspected and retracted towards the right upper quadrant using a moist towel and the Bookwalter retractor system. The sigmoid colon and descending colon were then mobilized by incising along the white line of Toldt proximally from the pelvic inlet towards the splenic flexure. The left ureter was identified and protected. Points of transection were selected proximally and distally to the affected bowel. This was noted in the sigmoid colon. Proximally, mesenteric defect was created in the colon was divided with a linear cutting stapler. The distal point of transection was divided in a similar fashion using a linear stapler. The peritoneum overlying the mesentery was then scored with electrocautery and the mesentery between the colonic transection points was divided and ligated using a LigaSure device. The specimen was removed and sent to pathology. The abdominal cavity was then copiously irrigated. The proximal colon reached easily to the proposed colostomy site without tension. A circular disc of skin was excised from the colostomy site in the left lower quadrant. The incision was deepened through all the layers of the abdominal wall. The anterior rectus sheath was incised vertically, and the muscle was bluntly split. The posterior rectus sheath and the peritoneum were incised vertically and the resultant defect was dilated to admit 2 fingers. A Barnhart clamp was then placed through the colostomy skin incision into the abdominal cavity and used to grasp the stapled proximal bowel. The colon was passed out through the ostomy site without torsion or tension. The fascia was closed with a running PDS suture. The skin was closed with skin camille. The staple line was removed from the proximal colon and the colostomy was then matured using multiple 3-0 Vicryl sutures in interrupted fashion. Dressings were applied and an ostomy bag was applied over the colostomy. The patient was awakened in the operating suite and taken to postanesthesia care unit in stable condition.
[2018-04-21] MEDS: ROPIVACAINE 250 MG, HYDROMORPHONE (PF) 5 MG in SODIUM CHLORIDE 0.9% 200 ML EPIDURAL PRN ×2 (15:48→17:03)
[2018-04-21] MEDS ORDERED: cefTRIAXone IN SWFI 1,000 MG/10 ML SYRINGE IVP SCH (16:00)
[2018-04-21] MEDS: SODIUM CHLORIDE 0.9% 1,000 ML IV SCH ×3 (16:38→22:14)
[2018-04-21] MEDS: PANTOPRAZOLE 40 MG/10 ML VIAL IV SCH (16:38)
[2018-04-21] MEDS: HEPARIN SODIUM,PORCINE 5,000 UNIT/ML 1 ML VIAL SQ SCH (17:40)
[2018-04-21] MEDS: KETOROLAC 30 MG/ML 1 ML VIAL IVP SCH (18:34)
[2018-04-21] MEDS: ONDANSETRON 4 MG/2 ML VIAL IVP PRN (22:14)
[2018-04-21] MEDS ORDERED: LORazepam 0.5 MG TAB PO PRN (22:39)
[2018-04-22] MEDS: metroNIDAZOLE-NS PMX 500 MG in SALINE 1 100ML.BAG IVPB SCH ×3 (01:25→15:48)
[2018-04-22] MEDS: KETOROLAC 30 MG/ML 1 ML VIAL IVP SCH ×4 (01:25→15:56)
[2018-04-22] MEDS: HEPARIN SODIUM,PORCINE 5,000 UNIT/ML 1 ML VIAL SQ SCH ×3 (01:26→15:48)
[2018-04-22] MEDS: SODIUM CHLORIDE 0.9% 1,000 ML IV SCH ×3 (06:06→21:14)
--- NOTE | 2018-04-22 06:15 | CONS ---
CONSULTATION DATE OF CONSULTATION: April 21, 2018 REASON FOR CONSULTATION: Medical management requested by Dr. Staton. CONSULTATION: This is a pleasant 47-year-old patient of Dr. Solorio whose chronic stable medical conditions include anxiety, depression, tachycardia, which have been under control. For 3 days, patient started off with increasing abdominal pain, more so in the lower abdomen that progressed to get worse. The patient presented to the ER in the early hours of this morning. The patient also was having constipation and then started having some diarrhea. She also having some nausea and has lightheaded and dizzy. There was no fever and chills. CT scan showed free air. I came to see the patient earlier today but patient had already gone to the operating room. Subsequently patient was found to have a perforated sigmoid colon, end colostomy was carried out. Fecal swelling of the peritoneum was noted. This was cleaned out. The patient now has a colostomy. Some pain is present. REVIEW OF SYSTEMS: CONSTITUTIONAL: Tired. HEENT none. RESPIRATORY none. CARDIOVASCULAR none. GASTROINTESTINAL: As above. GENITOURINARY: None. MUSCULOSKELETAL: None. DERMATOLOGIC, HEMATOLOGIC, LYMPHATIC: None. PSYCHIATRY: Anxiety/depression controlled. NEUROLOGICAL: None. PAST MEDICAL HISTORY: Endometrial ovarian cancer status post surgery and chemo, tachycardia, anxiety and depression. PAST SURGICAL HISTORY: Surgical history of appendectomy, breast surgery, hysterectomy, left rotator cuff surgery, hysterectomy secondary to ovarian cancer, right breast benign biopsy and anal surgery at . SOCIAL HISTORY: . Works at [employer]. No smoking. No alcohol. FAMILY HISTORY: Of thyroid cancer. HOME MEDICATIONS: Tylenol 650 mg q.6h p.r.n., Zoloft 25 mg a day, Adipex P 37.5 p.o. daily, multivitamin 1 tablet p.o. daily, Toprol-XL 12.5 p.o. daily, Ativan 0.5 p.o. b.i.d. p.r.n. ALLERGIES: ERYTHROMYCIN, PENICILLIN And TAMOXIFEN. PHYSICAL EXAMINATION: VITAL SIGNS: Vital signs on presentation, temperature 97.7, pulse 138, respiration 20, blood pressure 96/62, pulse ox 95% on room air. GENERAL APPEARANCE: Well built, BMI 31.8. Lying in bed, tired-appearing. EYES: Pupils equal. Conjunctivae normal. HEENT: External appearance of nose and ears normal. Oral cavity dry mucous membranes. NECK: JVD not raised. Mass not palpable. RESPIRATORY: Effort normal. LUNGS: Are clear. CARDIOVASCULAR: 1st and 2nd sounds normal. No edema. ABDOMEN: Tender. Colostomy bag in place. No guarding or rigidity. Liver and spleen not palpable. LYMPHATICS: No lymph nodes palpable in the neck and axilla. PSYCHIATRY: Alert and oriented x3. Mood and affect normal. INVESTIGATIONS: White count 3.4, hemoglobin 14.4, potassium 3.8, BUN 19, creatinine 0.94, bilirubin 1.9. CT scan of the abdomen and pelvis extensive sigmoid diverticulosis. There are evidence of diverticulitis and pneumoperitoneum. ASSESSMENT: 1. Acute severe diverticulitis with perforation and peritoneal swelling. 2. Sigmoid diverticulosis. 3. Obesity BMI 31.8. 4. Anxiety and depression not otherwise specified. 5. Sinus tachycardia. 6. End colostomy created. PLAN: Patient is on IV ceftriaxone, Flagyl and IV pain medications. We will resume patient's home medications with a sip of water. Pain control is in place and patient has got Venodyne boots in place. Care was discussed with the patient. Questions were answered. Thank you Dr. Staton for this consultation. Copy to Dr. Solorio. MMODL / IJN: [id number] /
[2018-04-22 06:50] LABS: Anion Gap 10 mmol/L; Blood Urea Nitrogen 22 mg/dL (7-17); Calcium 8.1 mg/dL (8.4-10.2); Carbon Dioxide 21 mmol/L (22-30); Chloride 112 mmol/L (98-107); Glucose 105 mg/dL (74-99); Potassium 3.9 mmol/L (3.5-5.1); Sodium 143 mmol/L (137-145)
[2018-04-22 06:53] LABS: Basophils % (A) 0 %; Eosinophils % (A) 0 %; HCT 33.7 % (34.0-46.0); Lymphocytes # (A) 0.4 k/uL (1.0-4.8); Lymphocytes % (A) 8 %; MCH 27.6 pg (25.0-35.0); MCHC 31.9 g/dL (31.0-37.0); MCV 86.5 fL (80.0-100.0); Mean Platelet Volume 6.6; Monocytes # (A) 0.3 k/uL (0-1.0); Monocytes % (A) 6 %; Neutrophils # (A) 4.2 k/uL (1.3-7.7); Neutrophils % (A) 85 %; Platelet Count 251 k/uL (150-450); RBC 3.89 m/uL (3.80-5.40); RDW 14.3 % (11.5-15.5)
[2018-04-22 07:00] LABS: HGB 10.8 gm/dL (11.4-16.0)
--- NOTE | 2018-04-22 07:24 | CONS ---
CONSULTATION DATE OF SERVICE: 04/21/2018 REASON FOR CONSULTATION: Perforated bowel. HISTORY OF PRESENT ILLNESS: The patient is a 47-year-old female who presented to the ER at [facility] early this morning with chief complaint of diffuse abdominal pain. The patient's pain has been going on for a few days and has been associated with constipation. The pain has been mostly diffuse across the abdominal area associated with nausea and some diarrhea and poor oral intake and has been feeling dizzy. With these symptoms the patient has been evaluated by the ER physician. The patient did have a CT abdomen and pelvis completed which shows extensive sigmoid diverticulosis with also evidence of sigmoid diverticulitis, inflammatory changes of large bowel mesentery and suggestive of small bowel intestinal wall thickening with concern for possible diverticulitis rupture. Subsequently the patient has been evaluated by General Surgery. She was taken to the OR where the patient had been diagnosed with perforated diverticulitis with intraperitoneal stool and pus. The Hartmann's procedure, sigmoid colectomy with end colostomy creation. The patient had been started on Rocephin and Flagyl, because of her PENICILLIN allergy. Infectious Disease was consulted for further recommendation of antibiotic therapy. Most of the information has been obtained from the chart as the patient was seen in postop. The patient was just recovering from anesthesia and was unable to provide a reliable history. REVIEW OF SYSTEMS: Could not be reliably obtained. The positive points have been mentioned in the HPI. PAST MEDICAL HISTORY: Significant for endometrial ovarian cancer. PAST SURGICAL HISTORY: Appendectomy, hysterectomy, rotator cuff surgery and right breast biopsy which was benign. SOCIAL HISTORY: No history of smoking, drinking, or drug use. FAMILY HISTORY: Mother with history of thyroid cancer. Father from a small bowel obstruction age of 69. ALLERGIES: ERYTHROMYCIN BASED and PENICILLIN along with TAMOXIFEN. MEDICATION: Currently the patient is on Rocephin 1 gram daily. She is on heparin, Toradol, Ativan, Flagyl, morphine sulfate, Narcan, Zofran, Protonix, Zoloft, and recent dose of aztreonam 2 grams daily. PHYSICAL EXAMINATION: On examination, her blood pressure is 102/66 with a pulse of 98, temperature is 98.8. She is currently 96% on 2 L of nasal cannula. General description is a middle age female lying in bed in no distress. No tachypnea or accessory muscle of respiration use. HEENT examination shows no pallor or scleral icterus. Oral mucous membrane is dry. No pharyngeal erythema or thrush. NECK: Trachea central. No thyromegaly. LUNGS: Unlabored breathing, clear to auscultation anteriorly. No wheeze or crackle. HEART: S1, S2. Regular rate and rhythm. No added sounds. ABDOMEN: Soft, mildly distended. No guarding or rigidity. No organomegaly. EXTREMITIES: No edema of feet. SKIN EXAMINATION: No rash or mass palpable. NEUROLOGIC: The patient is currently lethargic though is arousable, oriented x2. Mood and affect normal. LABS: Hemoglobin 14 9, white count of 3.4 with a BUN of 19, creatinine 0.94. Liver enzymes slightly elevated. UA was mildly positive. cultures currently pending. DIAGNOSTIC IMPRESSION AND PLAN: 1. Patient with secondary peritonitis from perforated sigmoid diverticulitis. Will need to cover for the enteric gram-negative both aerobes and anaerobes. The patient has not been on antibiotic in the recent past could be more likely sensitive pathogen such as an Escherichia coli. 2. The patient noted to have PENICILLIN, ERYTHROMYCIN allergy limiting the number of antibiotics could be safely used. PLAN: 1. Will increase Rocephin to 2 gram IV piggyback daily and continue Flagyl 500 mg every 8 hours. 2. Gentle IV fluid. 3. We will follow her clinical condition as well as cultures to further adjust medication if needed. Thank you for this consultation. Will follow this patient along with you. MMODL / IJN: [id number] /
--- NOTE | 2018-04-22 08:26 | P.PN ---
Progress Note - Text Date: 04/22/2018 Time: 07:13 The patient is status post exploratory laparotomy, postoperative day number 1 The patient has no complaints of nausea vomiting or headache. The patient does not complain of any lower extremity numbness or weakness. The epidural is running at 7 mL per hour. VAS 1-10. The epidural will be maintained and adjusted as needed.
[2018-04-22] MEDS: METOPROLOL SUCCINATE (ER) 25 MG TAB.ER.24H PO SCH (08:59)
[2018-04-22] MEDS: SERTRALINE 25 MG TAB PO SCH (08:59)
[2018-04-22] MEDS: ONDANSETRON 4 MG/2 ML VIAL IVP PRN ×2 (08:59→17:13)
[2018-04-22] MEDS: PANTOPRAZOLE 40 MG/10 ML VIAL IV SCH (08:59)
[2018-04-22] MEDS ORDERED: cefTRIAXone IN SWFI 1,000 MG/10 ML SYRINGE IVP SCH (09:00)
[2018-04-22] MEDS: Phentermine Hcl [Adipex-P] 37.5 MG PO SCH (11:20)
--- NOTE | 2018-04-22 14:43 | P.PN ---
Subjective Progress Note Date: 04/22/18 Patient seen and examined at bedside. States pain is well-controlled and is currently a 1 out of 10. No output from ostomy at this time. Urinary catheter is in place. Epidural is in place. She denies any emesis episodes. Does complain of some nausea. Objective - Vital Signs Vital signs: Vital Signs Temp 99.1 F 04/22/18 07:22 Pulse 99 04/22/18 07:22 Resp 16 04/22/18 07:22 BP 99/63 04/22/18 07:22 Pulse Ox 91 L 04/22/18 07:22 Intake & Output 04/21/18 04/22/18 04/22/18 18:59 06:59 18:59 Intake Total 2879 1000 Output Total 725 680 250 Balance 2154 320 -250 Weight 83.915 kg Intake: IV 2879 Intake, IV Titration 1000 Amount Ropivacaine 250 mg 67 Hydromorphone (Pf) 5 mg In Sodium Chloride 0.9% 200 ml @ Per Protocol EPIDURAL .Q0M PRN Rx#: [id number] Sodium Chloride 0.9% 1, 833 000 ml @ 150 mls/hr IV . Q6H40M [facility] Rx#:[id number] metroNIDAZOLE-NS PMX 500 100 mg In Saline 1 100ml.bag @ 100 mls/hr IVPB Q8HR [facility] Rx#:[id number] Output: Urine 600 680 250 Estimated Blood Loss 125 Other: Voiding Method Indwelling Catheter Indwelling Catheter Indwelling Catheter # Voids 1 # Bowel Movements 0 - Constitutional General appearance: Present: cooperative, no acute distress - Respiratory Details: No difficulty with respiration - Gastrointestinal Gastrointestinal Comment(s): Soft, appropriate tenderness, nondistended, no rebound, no guarding, ostomy site is pink and patent - Psychiatric Psychiatric: Present: A&O x's 3, appropriate affect - Labs CBC & Chem 7: 04/22/18 06:21 04/22/18 06:21 Labs: Abnormal Lab Results - Last 24 Hours (Table) 04/22/18 04/22/18 Range/Units 06:21 06:21 Hgb 10.8 L D (11.4-16.0) gm/dL Hct 33.7 L (34.0-46.0) % Lymphocytes # 0.4 L (1.0-4.8) k/uL Chloride 112 H (98-107) mmol/L Carbon Dioxide 21 L (22-30) mmol/L BUN 22 H (7-17) mg/dL Glucose 105 H (74-99) mg/dL Calcium 8.1 L (8.4-10.2) mg/dL Microbiology - Last 24 Hours (Table) 04/21/18 07:04 Blood Culture - Preliminary Blood No Growth after 24 hours 04/21/18 14:19 Gram Stain - Preliminary Abdomen Wound Culture - Preliminary 04/21/18 14:19 Anaerobic Culture - Preliminary Abdominal Fluid Assessment and Plan (1) Diverticulitis Narrative/Plan: 47-year-old female with perforated diverticulitis, postoperative day #1 status post exploratory laparotomy and Abraham's procedure - Continue nothing by mouth, okay for ice chips, okay for medications with sips of water - Continue urinary catheter while epidural is in place - Continue IV fluids - Increase activity, incentive spirometry - Appreciate ID recommendations for antibiotics - Appreciate medical recommendations - Progressing slowly Current Visit: Yes Status: Acute Code(s): K57.92 - DVTRCLI OF INTEST, PART UNSP, W/O PERF OR ABSCESS W/O BLEED SNOMED Code(s): 169115562
[2018-04-22] MEDS: ROPIVACAINE 250 MG, HYDROMORPHONE (PF) 5 MG in SODIUM CHLORIDE 0.9% 200 ML EPIDURAL PRN (17:41)
--- NOTE | 2018-04-22 23:48 | PN ---
PROGRESS NOTE DATE OF SERVICE: 04/22/2018. REASON FOR FOLLOWUP: Secondary peritonitis from perforated diverticulitis. INTERVAL HISTORY: The patient is afebrile. The abdominal pain is currently controlled with pain medication. The patient denies any nausea or vomiting. Denies any chest pain or shortness of breath or cough. EXAMINATION: Blood pressure 137/70 with a pulse of 91, temperature 98.1, she is 97% on room air. General description is a middle-aged female lying in bed in no distress. Respiratory system, unlabored breathing. Clear to auscultation anteriorly. Heart S1 and S2, regular rate and rhythm. Abdomen soft. No guarding or rigidity. Extremities no edema of the feet. LABS: Hemoglobin is 10.2, white count 5.0, BUN of 22, creatinine 0.73. The abdominal culture is showing gram-negative bacilli. DIAGNOSTIC IMPRESSION AND PLAN: Patient with secondary peritonitis from perforated sigmoid diverticulitis, status post diverting colostomy. The patient, at this time, is to continue Rocephin and Flagyl because of her PENICILLIN allergy, adjusting it further based on the culture and clinical response. Continue supportive care. MMODL / IJN: [id number] /
[2018-04-23] MEDS: SODIUM BICARBONATE TAB 650 MG TAB PO SCH ×4 (00:32→20:33)
[2018-04-23] MEDS: KETOROLAC 30 MG/ML 1 ML VIAL IVP SCH ×5 (00:32→23:28)
[2018-04-23] MEDS: HEPARIN SODIUM,PORCINE 5,000 UNIT/ML 1 ML VIAL SQ SCH ×4 (00:32→23:29)
[2018-04-23] MEDS: SODIUM CHLORIDE 0.9% 1,000 ML IV SCH ×4 (00:33→21:25)
[2018-04-23] MEDS: metroNIDAZOLE-NS PMX 500 MG in SALINE 1 100ML.BAG IVPB SCH ×4 (00:33→23:28)
--- NOTE | 2018-04-23 00:56 | PN ---
PROGRESS NOTE DATE OF SERVICE: April 22, 2018. PRESENTING COMPLAINT: Abdominal surgery. INTERVAL HISTORY: This is a patient status post sigmoid colectomy for perforated diverticulitis. Lying in bed, comfortable. No stool out of the colostomy bag. at the bedside. NG tube was taken out. The patient has got a epidural in place. REVIEW OF SYSTEMS: Done for constitutional, cardiovascular, GI, pulmonary; relevant findings as above. CURRENT MEDICATIONS: Reviewed that include epidural. PHYSICAL EXAMINATION: VITAL SIGNS: Temperature 99.1, pulse 99, respirations 16, blood pressure 98/63, pulse ox 91% on 3 L. GENERAL APPEARANCE: Lying in bed. Comfortable. Awake. EYES: Pupils equal. Conjunctivae normal. HEENT: External appearance of nose and ears normal. Oral cavity dry. NECK: JVD not raised. Mass not palpable. RESPIRATORY: Effort normal. LUNGS are clear. CARDIOVASCULAR: 1st and 2nd sounds normal. No edema. ABDOMEN: Tender, soft, bowel sounds sluggish. Colostomy bag is present. PSYCHIATRY: Alert and oriented x3. Mood and affect normal. INVESTIGATIONS: White count 5, hemoglobin 10.8, potassium 3.9, bicarb 21. ASSESSMENT: 1. Acute severe diverticulitis with perforation and peritoneal swelling. 2. Sigmoid colectomy with end colostomy created. 3. Sigmoid diverticulosis. 4. Obesity; BMI 31.8. 5. Anxiety, depression not otherwise specified. 6. Sinus tachycardia. 7. Acute blood loss anemia expected from surgery. 8. Metabolic acidosis from above. PLAN: Continue current medication and treatment plan. Patient getting IV fluids. The patient did have epidural in place. Care was discussed with the patient and at the bedside. MMODL / IJN: [id number] /
[2018-04-23 06:59] LABS: Basophils % (A) 0 %; Eosinophils # (A) 0.1 k/uL (0-0.7); Eosinophils % (A) 2 %; HCT 31.6 % (34.0-46.0); HGB 10.3 gm/dL (11.4-16.0); Lymphocytes # (A) 0.7 k/uL (1.0-4.8); Lymphocytes % (A) 11 %; MCH 27.8 pg (25.0-35.0); MCHC 32.6 g/dL (31.0-37.0); MCV 85.3 fL (80.0-100.0); Mean Platelet Volume 6.9; Monocytes # (A) 0.2 k/uL (0-1.0); Monocytes % (A) 3 %; Neutrophils # (A) 5.4 k/uL (1.3-7.7); Neutrophils % (A) 84 %; Platelet Count 280 k/uL (150-450); RBC 3.71 m/uL (3.80-5.40); RDW 14.4 % (11.5-15.5); WBC 6.4 k/uL (3.8-10.6)
[2018-04-23 07:25] LABS: Anion Gap 11 mmol/L; Blood Urea Nitrogen 22 mg/dL (7-17); Calcium 8.6 mg/dL (8.4-10.2); Carbon Dioxide 19 mmol/L (22-30); Chloride 115 mmol/L (98-107); Glucose 80 mg/dL (74-99); Potassium 4.1 mmol/L (3.5-5.1); Sodium 145 mmol/L (137-145)
[2018-04-23] MEDS: PANTOPRAZOLE 40 MG/10 ML VIAL IV SCH (08:50)
[2018-04-23] MEDS: cefTRIAXone IN SWFI 2,000 MG/20 ML SYRINGE IVP SCH (08:50)
[2018-04-23] MEDS: METOPROLOL SUCCINATE (ER) 25 MG TAB.ER.24H PO SCH (08:51)
[2018-04-23] MEDS: SERTRALINE 25 MG TAB PO SCH (08:51)
[2018-04-23] MEDS: Phentermine Hcl [Adipex-P] 37.5 MG PO SCH (09:14)
--- NOTE | 2018-04-23 10:42 | P.PN ---
Subjective Progress Note Date: 04/23/18 Patient seen and examined at bedside. She is currently in a chair at bedside. She states pain level is well-controlled. Urinary catheter is in place with continued urinary output. She denies any emesis episodes but does complain of some nausea. She has not had any ostomy output. Objective - Vital Signs Vital signs: Vital Signs Temp 97.6 F 04/23/18 01:23 Pulse 98 04/23/18 01:23 Resp 16 04/23/18 01:23 BP 112/73 04/23/18 01:23 Pulse Ox 92 L 04/23/18 01:23 Intake & Output 04/22/18 04/23/18 04/23/18 18:59 06:59 18:59 Intake Total 740 Output Total 475 225 Balance -475 515 Intake: Oral 740 Output: Urine 475 225 Other: Voiding Method Indwelling Catheter Indwelling Catheter - Constitutional General appearance: Present: cooperative, no acute distress - Respiratory Details: No difficulty with respiration - Gastrointestinal Gastrointestinal Comment(s): Soft, appropriate tenderness, nondistended, no rebound, no guarding, ostomy is pink and patent - Musculoskeletal Musculoskeletal: Present: generalized weakness - Psychiatric Psychiatric: Present: A&O x's 3, appropriate affect - Labs CBC & Chem 7: 04/23/18 06:24 04/23/18 06:24 Labs: Abnormal Lab Results - Last 24 Hours (Table) 04/23/18 04/23/18 Range/Units 06:24 06:24 RBC 3.71 L (3.80-5.40) m/uL Hgb 10.3 L (11.4-16.0) gm/dL Hct 31.6 L (34.0-46.0) % Lymphocytes # 0.7 L (1.0-4.8) k/uL Chloride 115 H (98-107) mmol/L Carbon Dioxide 19 L (22-30) mmol/L BUN 22 H (7-17) mg/dL Microbiology - Last 24 Hours (Table) 04/21/18 07:04 Blood Culture - Preliminary Blood No Growth after 48 hours 04/21/18 14:19 Gram Stain - Preliminary Abdomen Wound Culture - Preliminary Gram Neg Bacilli Assessment and Plan (1) Diverticulitis Narrative/Plan: 47-year-old female with perforated diverticulitis, postoperative day #2 status post exploratory laparotomy and Abraham's procedure - Continue nothing by mouth, okay for ice chips, okay for medications with sips of water - Continue urinary catheter while epidural is in place - Continue IV fluids - Increase activity, incentive spirometry - Appreciate ID recommendations for antibiotics - Appreciate medical recommendations - Progressing slowly Current Visit: Yes Status: Acute Code(s): K57.92 - DVTRCLI OF INTEST, PART UNSP, W/O PERF OR ABSCESS W/O BLEED SNOMED Code(s): 753691126
[2018-04-23] MEDS: ONDANSETRON 4 MG/2 ML VIAL IVP PRN ×2 (12:07→20:33)
--- NOTE | 2018-04-23 20:10 | P.PN ---
Progress Note - Text 04/23 3319 47-year-old female status post exploratory lap by Dr. Staton. Patient has an epidural catheter for postop pain control with the solution running at 7 mL an hour. She has a pain score of 1, with no motor or sensory deficits. Plan to continue epidural infusion.
[2018-04-23] MEDS: ROPIVACAINE 250 MG, HYDROMORPHONE (PF) 5 MG in SODIUM CHLORIDE 0.9% 200 ML EPIDURAL PRN (20:33)
[2018-04-24] MEDS: LACTATED RINGERS 1,000 ML IV SCH ×3 (01:46→21:39)
--- NOTE | 2018-04-24 03:40 | PN ---
PROGRESS NOTE DATE OF SERVICE: 04/23/2018. REASON FOR FOLLOWUP: Secondary peritonitis from a perforated diverticulitis. INTERVAL HISTORY: The patient is afebrile. She is currently breathing comfortably. Denies significant chest pain or shortness of breath or cough. Slight nausea but no vomiting. Abdominal pain is currently controlled with pain medication. EXAMINATION: Blood pressure 117/72 with a pulse of 93, temperature 99.3. She is 93% on room air. General description is a middle-aged female up in the bed in no distress. Respiratory system: Unlabored breathing, clear to auscultation anteriorly. HEART: S1, S2. Regular rate and rhythm. Abdomen soft, no tenderness. LABS: Hemoglobin 10 with white count 6.4, BUN of 22, creatinine 0.67. Abdominal cultures with gram-negative bacilli. DIAGNOSTIC IMPRESSION AND PLAN: Patient secondary peritonitis from ruptured diverticulitis, status post laparotomy and diverting colostomy. Plan at this time is keep the patient on Rocephin and Flagyl adjusting it further based on the culture report. Continue supportive care. MMODL / IJN: [id number] /
--- NOTE | 2018-04-24 04:22 | PN ---
PROGRESS NOTE DATE OF SERVICE: April 23, 2018. PRESENTING COMPLAINT: Abdominal surgery. INTERVAL HISTORY: Patient is status post sigmoid colectomy for perforated diverticulitis. Sitting up in a chair. Feels better. Pain is better controlled. Has got an epidural in place. No stool in the colostomy bag. No chest pain or short of breath. The patient is allowed ice chips. REVIEW OF SYSTEMS: Done for constitutional, cardiovascular, GI, pulmonary and relevant findings as above. CURRENT MEDICATIONS: Reviewed and include IV Flagyl, ceftriaxone. PHYSICAL EXAMINATION: VITAL SIGNS: Temperature 98.3, pulse 87, respirations 16, blood pressure 108/78. GENERAL APPEARANCE: Sitting up in a chair, more comfortable. EYES: Pupils are equal. Conjunctivae normal. HEENT: External appearance of nose and ears normal. Oral cavity dry. NECK: JVD not raised. Mass not palpable. RESPIRATORY: Effort normal. LUNGS are clear. CARDIOVASCULAR: 1st and 2nd sounds normal. No edema. ABDOMEN: Soft, tender. Bowel sounds are present. Colostomy bag in place. No stool. PSYCHIATRY: Alert and oriented x3. Mood and affect normal. INVESTIGATIONS: White count 6.4, hemoglobin 10.3, potassium 4.1. ASSESSMENT: 1. Acute severe diverticulitis with perforation and peritoneal soiling. 2. Sigmoid colectomy with end colostomy. 3. Sigmoid diverticulosis. 4. Obesity; BMI 31.8. 5. Anxiety and depression, not otherwise specified. 6. Sinus tachycardia. 7. Acute blood loss anemia expected from surgery. 8. Metabolic acidosis from above. PLAN: Clinically patient overall doing better. Continue current medication and treatment plan. We will switch patient's saline to in view of hyperchloremia. MMODL / IJN: [id number] /
[2018-04-24] MEDS: KETOROLAC 30 MG/ML 1 ML VIAL IVP SCH ×4 (05:58→23:08)
[2018-04-24 07:10] LABS: Basophils % (A) 0 %; Eosinophils # (A) 0.1 k/uL (0-0.7); Eosinophils % (A) 2 %; HCT 30.8 % (34.0-46.0); HGB 9.8 gm/dL (11.4-16.0); Lymphocytes # (A) 0.8 k/uL (1.0-4.8); Lymphocytes % (A) 16 %; MCH 27.3 pg (25.0-35.0); MCHC 31.8 g/dL (31.0-37.0); MCV 85.7 fL (80.0-100.0); Mean Platelet Volume 6.3; Monocytes # (A) 0.2 k/uL (0-1.0); Monocytes % (A) 4 %; Neutrophils # (A) 4.1 k/uL (1.3-7.7); Neutrophils % (A) 76 %; Platelet Count 305 k/uL (150-450); RBC 3.59 m/uL (3.80-5.40); RDW 14.9 % (11.5-15.5); WBC 5.3 k/uL (3.8-10.6)
[2018-04-24 07:21] LABS: Anion Gap 10 mmol/L; Blood Urea Nitrogen 18 mg/dL (7-17); Calcium 8.3 mg/dL (8.4-10.2); Carbon Dioxide 22 mmol/L (22-30); Chloride 111 mmol/L (98-107); Glucose 79 mg/dL (74-99); Potassium 3.7 mmol/L (3.5-5.1); Sodium 143 mmol/L (137-145)
[2018-04-24] MEDS: HEPARIN SODIUM,PORCINE 5,000 UNIT/ML 1 ML VIAL SQ SCH ×3 (07:43→23:08)
[2018-04-24] MEDS: metroNIDAZOLE-NS PMX 500 MG in SALINE 1 100ML.BAG IVPB SCH ×3 (07:43→23:08)
[2018-04-24] MEDS ORDERED: POTASSIUM CHLORIDE 20 MEQ in WATER FOR INJECTION 1 100ML.BAG IVPB STA (07:59)
--- NOTE | 2018-04-24 08:02 | P.PN ---
Subjective Progress Note Date: 04/24/18 Patient seen and examined at bedside. Comfortable with epidural in place. Continues to make good urine. Denies nausea or emesis episodes. There is no output in the ostomy bag as of yet. She is requesting apple juice. Objective - Vital Signs Vital signs: Vital Signs Temp 98.0 F 04/24/18 01:08 Pulse 89 04/24/18 01:08 Resp 16 04/24/18 01:08 BP 117/72 04/24/18 01:08 Pulse Ox 93 L 04/24/18 01:08 Intake & Output 04/23/18 04/24/18 04/24/18 18:59 06:59 18:59 Intake Total 1974 625.567 Output Total 500 Balance 1974 125.567 Intake: Intake, IV Titration 1475 625.567 Amount Ropivacaine 250 mg 188.067 Hydromorphone (Pf) 5 mg In Sodium Chloride 0.9% 200 ml @ Per Protocol EPIDURAL .Q0M PRN Rx#: [id number] Sodium Chloride 0.9% 1, 1375 437.5 000 ml @ 125 mls/hr IV . Q8H [facility] Rx#:[id number] metroNIDAZOLE-NS PMX 500 100 mg In Saline 1 100ml.bag @ 100 mls/hr IVPB Q8HR [facility] Rx#:[id number] Oral 500 Output: Urine 500 Other: Voiding Method Indwelling Catheter Indwelling Catheter - Constitutional General appearance: Present: cooperative, no acute distress - Respiratory Details: No difficulty with respiration - Gastrointestinal Gastrointestinal Comment(s): Soft, appropriate tenderness, nondistended, no rebound, no audible bowel sounds , ostomy is pink and patent with no output, midline incision with prevena dressing - Musculoskeletal Musculoskeletal: Present: generalized weakness - Psychiatric Psychiatric: Present: A&O x's 3, appropriate affect - Labs CBC & Chem 7: 04/24/18 06:46 04/24/18 06:46 Labs: Abnormal Lab Results - Last 24 Hours (Table) 04/24/18 04/24/18 Range/Units 06:46 06:46 RBC 3.59 L (3.80-5.40) m/uL Hgb 9.8 L (11.4-16.0) gm/dL Hct 30.8 L (34.0-46.0) % Lymphocytes # 0.8 L (1.0-4.8) k/uL Chloride 111 H (98-107) mmol/L BUN 18 H (7-17) mg/dL Calcium 8.3 L (8.4-10.2) mg/dL Microbiology - Last 24 Hours (Table) 04/21/18 07:04 Blood Culture - Preliminary Blood No Growth after 48 hours Assessment and Plan (1) Diverticulitis Narrative/Plan: 47-year-old female with perforated diverticulitis, postoperative day #3 status post exploratory laparotomy and Abraham's procedure - There are no active bowel sounds and patient has not had any ostomy output, Continue nothing by mouth, okay for ice chips, okay for medications with sips of water - Continue urinary catheter while epidural is in place - Continue IV fluids - Increase activity, incentive spirometry - Appreciate ID recommendations for antibiotics - Appreciate medical recommendations - Progressing slowly Current Visit: Yes Status: Acute Code(s): K57.92 - DVTRCLI OF INTEST, PART UNSP, W/O PERF OR ABSCESS W/O BLEED SNOMED Code(s): 345829028
[2018-04-24] MEDS: METOPROLOL SUCCINATE (ER) 25 MG TAB.ER.24H PO SCH (08:41)
[2018-04-24] MEDS: cefTRIAXone IN SWFI 2,000 MG/20 ML SYRINGE IVP SCH (08:41)
[2018-04-24] MEDS: SERTRALINE 25 MG TAB PO SCH (08:42)
[2018-04-24] MEDS: SODIUM BICARBONATE TAB 650 MG TAB PO SCH ×3 (08:42→21:08)
[2018-04-24] MEDS: PANTOPRAZOLE 40 MG/10 ML VIAL IV SCH (09:02)
[2018-04-24] MEDS: Phentermine Hcl [Adipex-P] 37.5 MG PO SCH (09:02)
--- NOTE | 2018-04-24 20:20 | PN ---
PROGRESS NOTE DATE OF SERVICE: April 24, 2018. PRESENTING COMPLAINT: Abdominal surgery. INTERVAL HISTORY: Patient is status post sigmoid colectomy for perforated diverticulitis. Sitting up on a chair and is on ice chips. Epidural remains in place. Pain is better controlled. No output through the colostomy bag. Breathing is stable. REVIEW OF SYSTEMS: Done for constitutional, cardiovascular, GI, pulmonary and relevant findings as above. CURRENT MEDICATIONS: Reviewed that include IV Flagyl and ceftriaxone. PHYSICAL EXAMINATION: VITAL SIGNS: Temperature 97.8, pulse 70, respiration 16, blood pressure 114/88. Pulse ox 93% on room air. GENERAL APPEARANCE: Sitting up in a chair, comfortable. EYES : Pupils are equal. Conjunctivae normal. HEENT: External appearance of nose and ears normal. Oral cavity dry. NECK: JVD not raised. Mass not palpable. RESPIRATORY effort normal. LUNGS are clear. CARDIOVASCULAR: 1st and 2nd sounds normal. No edema. ABDOMEN: Soft, nontender. Bowel sounds present. Colostomy bag in place. No stool. PSYCHIATRY: Alert and oriented x3. Mood and affect normal. INVESTIGATIONS: White count 5.3, hemoglobin 9.8, chloride 111. ASSESSMENT: 1. Acute severe diverticulitis with perforation with peritoneal swelling. 2. Sigmoid colectomy with end colostomy. 3. Sigmoid diverticulosis. 4. Obesity BMI 31.8. 5. Anxiety, depression not otherwise specified. 6. Sinus tachycardia. 7. Acute blood loss anemia expected from surgery. 8. Metabolic acidosis from above. 9. Hyperchloremia. PLAN: Continue current medication and treatment plan. The patient's IV fluids was changed to LR yesterday. Care was discussed with the patient. The patient did ambulate a bit. MMODL / IJN: [id number] /
[2018-04-24] MEDS: ONDANSETRON 4 MG/2 ML VIAL IVP PRN (22:23)
--- NOTE | 2018-04-24 22:56 | PN ---
PROGRESS NOTE DATE OF SERVICE: 04/24/2018. REASON FOR FOLLOWUP: Secondary peritonitis from a perforated diverticulitis. INTERVAL HISTORY: The patient is afebrile. She has been breathing comfortably. Denies significant chest pain or cough. Abdominal pain is currently controlled. No nausea, no vomiting. EXAMINATION: Blood pressure 134/77 with a pulse of 69, temperature 98.5, she is 92% on 2 L nasal cannula. General description is a middle-aged female up in the chair in no distress. Respiratory system, unlabored breathing. Clear to auscultation. Heart S1, S2. Regular rate and rhythm. No abdominal tenderness. LABS: Hemoglobin 9.8, white count 5.3 with a BUN of 18, creatinine 0.60. Abdominal cultures did show an E coli sensitive to ceftriaxone and rifampin. DIAGNOSTIC IMPRESSION AND PLAN: Patient with abdominal abscess and secondary peritonitis from perforated diverticulitis status post diverting colostomy. The abdominal cultures are showing E coli and . The patient will be continued on Rocephin and Flagyl. Hopefully finish therapy with oral antibiotics once her wound is improved. Continue supportive care. MMODL / IJN: [id number] /
[2018-04-25] MEDS: KETOROLAC 30 MG/ML 1 ML VIAL IVP SCH ×2 (04:50→11:49)
[2018-04-25] MEDS: LACTATED RINGERS 1,000 ML IV SCH ×2 (05:49→17:03)
[2018-04-25] MEDS: ONDANSETRON 4 MG/2 ML VIAL IVP PRN ×2 (07:47→17:05)
[2018-04-25] MEDS: HEPARIN SODIUM,PORCINE 5,000 UNIT/ML 1 ML VIAL SQ SCH ×3 (08:12→23:05)
[2018-04-25] MEDS: metroNIDAZOLE-NS PMX 500 MG in SALINE 1 100ML.BAG IVPB SCH ×3 (08:12→23:06)
[2018-04-25 09:11] LABS: Basophils % (A) 0 %; Eosinophils # (A) 0.1 k/uL (0-0.7); Eosinophils % (A) 1 %; HCT 33.6 % (34.0-46.0); Lymphocytes % (A) 16 %; MCH 27.8 pg (25.0-35.0); MCHC 32.8 g/dL (31.0-37.0); MCV 84.7 fL (80.0-100.0); Mean Platelet Volume 6.2; Monocytes # (A) 0.3 k/uL (0-1.0); Monocytes % (A) 5 %; Neutrophils # (A) 4.7 k/uL (1.3-7.7); Neutrophils % (A) 74 %; Platelet Count 367 k/uL (150-450); RBC 3.97 m/uL (3.80-5.40); RDW 15.2 % (11.5-15.5); WBC 6.3 k/uL (3.8-10.6)
--- NOTE | 2018-04-25 09:17 | XR ---
EXAMINATION TYPE: XR chest 2V DATE OF EXAM: 04/25/2018 COMPARISON: 10/08/2014 HISTORY: 47 year-old female shortness of breath, difficulty breathing TECHNIQUE: Frontal and lateral views FINDINGS: Heart upper limits of normal in size. Low lung volumes with crowded vascular markings. Bony vasculatu re is mildly prominent. There small bilateral pleural effusions with bibasilar opacities. IMPRESSION: 1. Hypoventilatory changes. 2. Small bilateral pleural effusions with adjacent atelectasis and/or consolidation. Correlate to exc lude CHF as an etiology.
[2018-04-25 09:21] LABS: Anion Gap 16 mmol/L; Blood Urea Nitrogen 13 mg/dL (7-17); Calcium 8.5 mg/dL (8.4-10.2); Carbon Dioxide 22 mmol/L (22-30); Chloride 106 mmol/L (98-107); Glucose 89 mg/dL (74-99); Potassium 3.6 mmol/L (3.5-5.1); Sodium 144 mmol/L (137-145)
[2018-04-25] MEDS: cefTRIAXone IN SWFI 2,000 MG/20 ML SYRINGE IVP SCH (10:03)
[2018-04-25] MEDS: METOPROLOL SUCCINATE (ER) 25 MG TAB.ER.24H PO SCH (10:04)
[2018-04-25] MEDS: SERTRALINE 25 MG TAB PO SCH (10:05)
[2018-04-25] MEDS: SODIUM BICARBONATE TAB 650 MG TAB PO SCH ×3 (10:05→23:05)
[2018-04-25] MEDS: PANTOPRAZOLE 40 MG/10 ML VIAL IV SCH (10:06)
[2018-04-25] MEDS: Phentermine Hcl [Adipex-P] 37.5 MG PO SCH (10:07)
--- NOTE | 2018-04-25 10:25 | P.PN ---
Progress Note - Text 04/24 1400 47-year-old female status post explore lap by Dr. Staton. Patient has an epidural catheter for postop pain control running at 7 mL an hour. VAS of 0 with no motor or sensory deficits. Epidural DC'd nurse informed
--- NOTE | 2018-04-25 10:59 | P.PN ---
Subjective Progress Note Date: 04/25/18 Patient seen and examined at bedside. States she is doing well. Complains of some mild nausea. Denies any emesis episodes. She has not had output in ostomy bag. Objective - Vital Signs Vital signs: Vital Signs Temp 98.4 F 04/25/18 07:00 Pulse 68 04/25/18 07:00 Resp 16 04/25/18 07:00 BP 135/84 04/25/18 07:00 Pulse Ox 94 L 04/25/18 07:00 Intake & Output 04/24/18 04/25/18 04/25/18 18:59 06:59 18:59 Intake Total 1200 300 Output Total 1350 300 Balance -150 0 Intake: Intake, IV Titration 1200 300 Amount Lactated Ringers 1,000 ml 100 @ 100 mls/hr IV .Q10H ERNESTO Rx#:[id number] Potassium Chloride 20 meq 100 300 In Water For Injection 1 100ml.bag @ 50 mls/hr IVPB ONCE STA Rx#: [id number] Sodium Chloride 0.9% 1, 1000 000 ml @ 125 mls/hr IV . Q8H ERNESTO Rx#:[id number] Output: Urine 1350 300 Uretheral (Burch) 675 Other: Voiding Method Indwelling Catheter Toilet # Voids 1 - Constitutional General appearance: Present: cooperative, no acute distress - EENT Eyes: Present: PERRLA - Respiratory Details: No difficulty with respiration - Gastrointestinal Gastrointestinal Comment(s): Soft, appropriate tenderness, nondistended, no rebound, no guarding, midline incision is clean, dry and intact with camille in place, ostomy site is pink and patent with no significant output - Psychiatric Psychiatric: Present: A&O x's 3, appropriate affect - Labs CBC & Chem 7: 04/25/18 08:34 04/25/18 08:34 Labs: Abnormal Lab Results - Last 24 Hours (Table) 04/25/18 04/25/18 Range/Units 08:34 08:34 Hgb 11.0 L (11.4-16.0) gm/dL Hct 33.6 L (34.0-46.0) % Creatinine 0.49 L (0.52-1.04) mg/dL Microbiology - Last 24 Hours (Table) 04/21/18 07:04 Blood Culture - Preliminary Blood No Growth after 96 hours 04/21/18 14:19 Gram Stain - Final Abdomen Wound Culture - Preliminary Escherichia coli Alpha Hemolytic Streptococcus 04/21/18 14:19 Anaerobic Culture - Final Abdominal Fluid Anaerobic Gm Negative Bacilli Assessment and Plan (1) Diverticulitis Narrative/Plan: 47-year-old female with perforated diverticulitis, postoperative day #4 status post exploratory laparotomy and Abraham's procedure - Pt has active bowel sounds and patient has not had any ostomy output, will attempt clear liquid diet today - Urinary catheter was removed - Continue IV fluids - Increase activity, incentive spirometry - Appreciate ID recommendations for antibiotics - Appreciate medical recommendations - Progressing slowly Current Visit: Yes Status: Acute Code(s): K57.92 - DVTRCLI OF INTEST, PART UNSP, W/O PERF OR ABSCESS W/O BLEED SNOMED Code(s): 830846875
[2018-04-25] MEDS ORDERED: SCOPOLAMINE 1.5MG/72HR PATCH TRANSDERM SCH (11:30)
--- NOTE | 2018-04-25 17:09 | PN ---
PROGRESS NOTE DATE OF SERVICE: 04/25/2018. REASON FOR FOLLOWUP: Secondary peritonitis from a perforated sigmoid diverticulitis. INTERVAL HISTORY: The patient is afebrile. She is breathing comfortably. Denies having any chest pain or shortness of breath or cough. Abdominal pain is currently controlled. No nausea or vomiting. EXAMINATION: Blood pressure is 152/78 with a pulse of 72. Temperature 98.7. She is 94% on 2 L nasal cannula. General description is a middle-aged female up in the bed in no distress. RESPIRATORY SYSTEM: Unlabored breathing. Clear to auscultation anteriorly. HEART: S1, S2. Regular rate and rhythm. ABDOMEN: Soft, no tenderness. LABS: BUN of 13, creatinine 0.4 and hemoglobin is 11, white count 6.3. DIAGNOSTIC IMPRESSION AND PLAN: Patient with secondary peritonitis from perforated sigmoid diverticulitis, status post diverting colostomy. Patient at this time will continue with Rocephin and Flagyl with the plan to switch therapy with oral Cipro and Flagyl once oral intake has improved. Continue supportive care. MMODL / IJN: [id number] /
--- NOTE | 2018-04-26 00:03 | PN ---
PROGRESS NOTE DATE OF SERVICE: April 25, 2018. PRESENTING COMPLAINT: Abdominal surgery. INTERVAL HISTORY: Patient status post sigmoid colectomy for perforated diverticulitis, doing much better today. Epidural has been taken off. The stool in the colostomy bag. Pain is well controlled. Switched to oral antibiotics per ID earlier today. The patient has been out of bed. REVIEW OF SYSTEMS: Done for constitutional, cardiovascular, GI, pulmonary and relevant findings as above. CURRENT MEDICATIONS: Reviewed. The patient is on IV ceftriaxone and IV Flagyl. PHYSICAL EXAMINATION: VITAL SIGNS: Temperature 98.7, pulse 72, respiratory 18, blood pressure 152/78, pulse ox 94% on 2 L. GENERAL APPEARANCE: Sitting up in a chair, awake. EYES: Pupils equal. Conjunctivae normal. HEENT: External appearance of nose and ears normal. Oral cavity normal. NECK: JVD not raised. Mass not palpable. RESPIRATORY: Effort normal. LUNGS: Slightly decreased breath sounds. CARDIOVASCULAR: 1st and 2nd sounds normal. No edema. ABDOMEN: Soft, nontender. Wound VAC in place. Colostomy bag in place. PSYCHIATRY: Alert and oriented x3. Mood and affect normal. INVESTIGATIONS: White count 6.8, hemoglobin 11. ASSESSMENT: 1. Acute severe diverticulitis with perforation and secondary peritoneal soiling. 2. Sigmoid colectomy with end colostomy. 3. Sigmoid diverticulosis. 4. Obesity; BMI 31.9. 5. Anxiety and depression, not otherwise specified. 6. Acute blood-loss anemia as expected from surgery. 7. Metabolic acidosis from above. 8. Hypochloremia, improved. PLAN: Continue current medication and treatment plan. Patient overall doing much better. Care was discussed with the patient. MMODL / IJN: [id number] /
[2018-04-26] MEDS: LACTATED RINGERS 1,000 ML IV SCH ×3 (02:09→21:28)
[2018-04-26] MEDS: HEPARIN SODIUM,PORCINE 5,000 UNIT/ML 1 ML VIAL SQ SCH ×2 (08:01→15:57)
[2018-04-26] MEDS: ONDANSETRON 4 MG/2 ML VIAL IVP PRN ×2 (08:01→16:02)
[2018-04-26 09:16] LABS: Basophils % (A) 0 %; Eosinophils # (A) 0.1 k/uL (0-0.7); Eosinophils % (A) 2 %; HCT 32.1 % (34.0-46.0); HGB 10.5 gm/dL (11.4-16.0); Lymphocytes # (A) 1.7 k/uL (1.0-4.8); Lymphocytes % (A) 23 %; MCH 26.3 pg (25.0-35.0); MCHC 32.8 g/dL (31.0-37.0); MCV 80.3 fL (80.0-100.0); Mean Platelet Volume 7.3; Monocytes # (A) 0.4 k/uL (0-1.0); Monocytes % (A) 5 %; Neutrophils # (A) 5.1 k/uL (1.3-7.7); Neutrophils % (A) 68 %; Platelet Count 438 k/uL (150-450); RDW 14.6 % (11.5-15.5); WBC 7.4 k/uL (3.8-10.6)
[2018-04-26] MEDS: metroNIDAZOLE-NS PMX 500 MG in SALINE 1 100ML.BAG IVPB SCH ×2 (09:22→15:57)
[2018-04-26] MEDS: cefTRIAXone IN SWFI 2,000 MG/20 ML SYRINGE IVP SCH (09:22)
[2018-04-26] MEDS: SODIUM BICARBONATE TAB 650 MG TAB PO SCH ×4 (09:23→21:29)
[2018-04-26] MEDS: PANTOPRAZOLE 40 MG/10 ML VIAL IV SCH (09:23)
[2018-04-26] MEDS: METOPROLOL SUCCINATE (ER) 25 MG TAB.ER.24H PO SCH (09:23)
[2018-04-26] MEDS: SERTRALINE 25 MG TAB PO SCH (09:23)
[2018-04-26 09:27] LABS: Anion Gap 11 mmol/L; Blood Urea Nitrogen 8 mg/dL (7-17); Calcium 8.4 mg/dL (8.4-10.2); Carbon Dioxide 26 mmol/L (22-30); Chloride 102 mmol/L (98-107); Glucose 104 mg/dL (74-99); Sodium 139 mmol/L (137-145)
--- NOTE | 2018-04-26 09:29 | P.PN ---
Subjective Progress Note Date: 04/26/18 patient seen and examined at bedside. She states she is feeling well today. She is tolerating her clear liquid diet. Ostomy has output today. She states she is becoming more comfortable with the ostomy and is learning how to take care of it. She has no additional complaints at this time. Objective - Vital Signs Vital signs: Vital Signs Temp 98.4 F 04/26/18 00:45 Pulse 73 04/26/18 00:45 Resp 16 04/26/18 00:45 BP 127/77 04/26/18 00:45 Pulse Ox 94 L 04/26/18 00:45 Intake & Output 04/25/18 04/26/18 04/26/18 18:59 06:59 18:59 Intake Total 800 640 Balance 800 640 Weight 83.915 kg Intake: Intake, IV Titration 800 Amount Lactated Ringers 1,000 ml 800 @ 100 mls/hr IV .Q10H ERNESTO Rx#:[id number] Oral 640 Other: # Voids 3 - Constitutional General appearance: Present: cooperative, no acute distress - Respiratory Details: no difficulty with respiration - Gastrointestinal Gastrointestinal Comment(s): soft, appropriate tenderness, nondistended, no rebound, no guarding, incision site is clean, dry and intact with camille in place, ostomy site is pink and patent with stool output - Psychiatric Psychiatric: Present: A&O x's 3 - Labs CBC & Chem 7: 04/26/18 08:32 04/25/18 08:34 Labs: Abnormal Lab Results - Last 24 Hours (Table) 04/25/18 04/26/18 Range/Units 08:34 08:32 Hgb 10.5 L (11.4-16.0) gm/dL Hct 32.1 L (34.0-46.0) % Creatinine 0.49 L (0.52-1.04) mg/dL Microbiology - Last 24 Hours (Table) 04/21/18 07:04 Blood Culture - Preliminary Blood No Growth after 120 hours 04/21/18 14:19 Gram Stain - Final Abdomen Wound Culture - Final Escherichia coli Alpha Hemolytic Streptococcus Assessment and Plan (1) Diverticulitis Narrative/Plan: 47-year-old female with perforated diverticulitis, postoperative day #5 status post exploratory laparotomy and Abraham's procedure - Pt has had active output from the ostomy - ostomy care education plan for today - decrease IV fluids - Increase activity, incentive spirometry - advance to soft diet - Appreciate ID recommendations for antibiotics - Appreciate medical recommendations - Progressing slowly, discharge planning Current Visit: Yes Status: Acute Code(s): K57.92 - DVTRCLI OF INTEST, PART UNSP, W/O PERF OR ABSCESS W/O BLEED SNOMED Code(s): 895474745
[2018-04-26] MEDS: Phentermine Hcl [Adipex-P] 37.5 MG PO SCH (09:34)
[2018-04-26 09:45] LABS: Potassium 3.7 mmol/L (3.5-5.1)
--- NOTE | 2018-04-26 14:34 | PN ---
PROGRESS NOTE DATE OF SERVICE: 04/26/2018 REASON FOR FOLLOWUP: Secondary peritonitis from a perforated diverticulitis. INTERVAL HISTORY: The patient is currently afebrile. He has been breathing comfortably. Abdominal pain is currently controlled with pain medication. Denies significant chest pain or shortness of breath or cough. PHYSICAL EXAMINATION: Blood pressure 132/85 with a pulse of 79, temperature of 98.2. General description is a middle-aged female, lying in bed in no distress. RESPIRATORY SYSTEM: Unlabored breathing, clear to auscultation anteriorly. HEART: S1, S2, regular rate and rhythm. ABDOMEN: Soft, no tenderness. No guarding, no rigidity. EXTREMITIES: No edema of the feet. LABS: White count is normal at 7.4, abdominal culture with E coli and anaerobic gram-negative bacilli. DIAGNOSTIC IMPRESSION AND PLAN: Patient with secondary peritonitis from perforated sigmoid colitis, status post diverting colostomy, currently on Rocephin and Flagyl therapy, transition to oral Cipro and Flagyl for 7-10 days on discharge with close outpatient followup. MMODL / IJN: [id number] /
[2018-04-26] MEDS ORDERED: HEPARIN SODIUM,PORCINE 5,000 UNIT/ML 1 ML VIAL ONE (23:43)
[2018-04-27] MEDS: HEPARIN SODIUM,PORCINE 5,000 UNIT/ML 1 ML VIAL SQ SCH ×2 (05:04→09:40)
[2018-04-27] MEDS: metroNIDAZOLE-NS PMX 500 MG in SALINE 1 100ML.BAG IVPB SCH ×2 (05:04→07:39)
[2018-04-27] MEDS ORDERED: PANTOPRAZOLE 40 MG TABLET PO SCH (07:30)
[2018-04-27 07:39] VITALS: BP 130/84; PULSE 88; RESP 16; TEMP 99.3
[2018-04-27] MEDS: ONDANSETRON 4 MG/2 ML VIAL IVP PRN (07:49)
[2018-04-27] MEDS ORDERED: HYDROcodone/APAP 7.5-325MG 1 EACH TAB PO PRN (08:58)
[2018-04-27 09:05] LABS: Basophils % (A) 1 %; Eosinophils # (A) 0.1 k/uL (0-0.7); Eosinophils % (A) 2 %; HCT 37.2 % (34.0-46.0); HGB 12.5 gm/dL (11.4-16.0); Lymphocytes # (A) 1.4 k/uL (1.0-4.8); Lymphocytes % (A) 20 %; MCH 27.7 pg (25.0-35.0); MCHC 33.7 g/dL (31.0-37.0); MCV 82.3 fL (80.0-100.0); Monocytes # (A) 0.3 k/uL (0-1.0); Monocytes % (A) 5 %; Neutrophils # (A) 4.9 k/uL (1.3-7.7); Neutrophils % (A) 72 %; Platelet Count 391 k/uL (150-450); RBC 4.52 m/uL (3.80-5.40); RDW 14.8 % (11.5-15.5); WBC 6.9 k/uL (3.8-10.6)
[2018-04-27] MEDS: METOPROLOL SUCCINATE (ER) 25 MG TAB.ER.24H PO SCH (09:41)
[2018-04-27] MEDS: cefTRIAXone IN SWFI 2,000 MG/20 ML SYRINGE IVP SCH (09:41)
[2018-04-27] MEDS: SODIUM BICARBONATE TAB 650 MG TAB PO SCH (09:42)
[2018-04-27] MEDS: SERTRALINE 25 MG TAB PO SCH (09:42)
--- NOTE | 2018-04-27 09:47 | P.DS ---
Providers Date of admission: 04/21/18 07:03 Expected date of discharge: 04/27/18 Attending physician: Mariano Staton DO Consults: 04/21/18 10:22 Consult Physician Routine Consulting Provider: Almas Abarca Consult Reason/Comments: med mgmt Do you want consulting provider notified?: Yes 04/21/18 10:23 Consult Physician Routine Consulting Provider: Markus Yanez Consult Reason/Comments: perf diverticulitis Do you want consulting provider notified?: Yes Primary care physician: [facility] Course: 47-year-old female presented to the emergency room with diffuse abdominal pain. Patient stated that she had had several days of constipation with abdominal pain. Poor oral intake. Came into the emergency room with above-mentioned symptoms. Computed tomography scan of the abdomen pelvis without contrast done on April 21 the report indicated extensive sigmoid diverticulosis with evidence of significant diverticulitis. With perforated sigmoid diverticulitis with inter peritoneal stool and pus. Patient underwent a Abraham's procedure sigmoid colectomy with end colostomy on April 21. Operative findings showed perforated diverticulitis with multiple fluid pockets full of pus and stool dilated small bowel. Infectious disease did participate in the plan of care. Ostomy teaching was initiated by the ostomy nurse. The day of discharge the ostomy was functioning with output. On the day of discharge the pain medication was effective for pain control patient could be transitioned to oral antibiotics per recommendations of infectious disease Impression discharge diagnosis Present on admission abdominal pain constipation suspect due to acute diverticulitis Postop April 21 Abraham's procedure sigmoid colectomy with end colostomy for perforated diverticulitis with multiple fluid levels of pus and stool within the dilated small bowel Anxiety depressive disorder Obesity BMI 31 Metabolic acid doses corrected resolved Sinus tachycardia suspect reactive hyperchloremia Acute blood loss anemia expected from surgery hemoglobin stable History of endometrial ovarian cancer with surgery and chemotherapy 2013 The above impression and plan of care have been discussed and directed by signing physician. Roxanne Roberts nurse practitioner acting as scribe for signing physician. Patient Condition at Discharge: Serious Plan - Discharge Summary Discharge Rx Participant: Yes New Discharge Prescriptions: New HYDROcodone/APAP 7.5-325MG [[place]en 7.5-325] 1 each PO Q4H PRN tab PRN Reason: Pain metroNIDAZOLE [Flagyl] 500 mg PO TID #30 tab Ciprofloxacin HCl [Cipro] 500 mg PO Q12HR #20 tablet HYDROcodone/APAP 7.5-325MG [[place]aveen 7.5-325] 1 tab PO Q6HR PRN 3 Days #15 tab PRN Reason: Pain Control No Action Sertraline [Zoloft] 25 mg PO QAM Phentermine HCl [Adipex-P] 37.5 mg PO QAM Multivitamin,Therapeutic [Thera] 1 tab PO DAILY Acetaminophen Tab [Tylenol Tab] 650 mg PO Q6H PRN PRN Reason: Pain LORazepam [Ativan] 0.5 mg PO BID PRN PRN Reason: Anxiety Metoprolol Succinate (ER) [Toprol Xl] 12.5 mg PO DAILY Discharge Medication List Sertraline [Zoloft] 25 mg PO QAM 12/22/15 [History] Acetaminophen Tab [Tylenol Tab] 650 mg PO Q6H PRN 04/21/18 [History] LORazepam [Ativan] 0.5 mg PO BID PRN 04/21/18 [History] Metoprolol Succinate (ER) [Toprol Xl] 12.5 mg PO DAILY 04/21/18 [History] Multivitamin,Therapeutic [Thera] 1 tab PO DAILY 04/21/18 [History] Phentermine HCl [Adipex-P] 37.5 mg PO QAM 04/21/18 [History] Ciprofloxacin HCl [Cipro] 500 mg PO Q12HR #20 tablet 04/27/18 [Rx] HYDROcodone/APAP 7.5-325MG [Laveen 7.5-325] 1 each PO Q4H PRN tab 04/27/18 [Rx] HYDROcodone/APAP 7.5-325MG [Laveen 7.5-325] 1 tab PO Q6HR PRN 3 Days #15 tab 09/04 [Rx] metroNIDAZOLE [Flagyl] 500 mg PO TID #30 tab 04/27/18 [Rx] Follow up Appointment(s)/Referral(s): [facility], [NON-STAFF] - Lupillo Solorio DO [Primary Care Provider] - 1-2 days Markus Yanez MD [STAFF PHYSICIAN] - 1 Week Mariano Staton DO [Doctor of Osteopathic Medicine] - 1 Week Patient Instructions/Handouts: Diverticulitis (GEN), Colostomy Care (GEN) Activity/Diet/Wound Care/Special Instructions: Colostomy Care Instructions for Home: Last pouching system change: 04.24.2018 Current Osotmy supply list: [facility] Flange #[id number] (three from hospital) [facility] pouching system #[id number] w filter (three from hospital) No Sting Prep Pads (12 from hospital) Ostomy powder (one from hospital) Please empty the pouch when it is 1/2 to 1/3 full Please change the pouching system every 3-5 days Mrs Johnson will be receiving additional ostomy care supplies directly to her home from [employer] and [employer]. in 4-6 post discharge. Home Health System to establish permanent osotmy supplies in 3-4 weeks post surgery working with Dr Staton for prescription. Pt will need a prescription for all ostomy supplies at discharge.(See note form ostonmy RN) No tub bath for six weeks. Shower daily. No lifting over 10 pounds for the next 6 weeks.. May use ice packs to surgical site. No driving while taking narcotic for pain. Discharge Disposition: HOME WITH HOME HEALTH SERVICES
[2018-04-27] MEDS: Phentermine Hcl [Adipex-P] 37.5 MG PO SCH (09:51)
[2018-04-27 10:00] LABS: Anion Gap 18 mmol/L; Blood Urea Nitrogen 8 mg/dL (7-17); Calcium 8.4 mg/dL (8.4-10.2); Carbon Dioxide 29 mmol/L (22-30); Chloride 98 mmol/L (98-107); Glucose 113 mg/dL (74-99); Sodium 145 mmol/L (137-145)
[2018-04-27 10:05] LABS: Potassium 3.9 mmol/L (3.5-5.1)
--- NOTE | 2018-04-27 11:02 | PN ---
PROGRESS NOTE DATE OF SERVICE: 04/26/2018 PRESENTING COMPLAINT: Abdominal surgery. INTERVAL HISTORY: Patient is status post sigmoid colectomy for perforated diverticulitis. Seen by me yesterday on 04/26/2018. Patient continues to do well. Pain is well-controlled. Diet was advanced. Stool in the colostomy bag, has been out of bed. REVIEW OF SYSTEMS: Done for constitutional, cardiovascular, GI, pulmonary; relevant findings as above. CURRENT MEDICATIONS: Reviewed that include IV Flagyl and IV ceftriaxone. PHYSICAL EXAMINATION: Temperature 98.2, pulse 90, respirations 16, blood pressure 130/85, pulse ox 94% on room air. GENERAL APPEARANCE: Sitting up in a chair, comfortable. EYES: Pupils equal, conjunctivae are normal. HEENT: External appearance of nose and ears normal. Oral cavity normal. NECK: JVD not raised. Mass not palpable. RESPIRATORY: Effort normal. LUNGS: Decreased breath sounds. CARDIOVASCULAR: First and second sounds normal. No edema. ABDOMEN: Soft, nontender. Wound VAC in place. Colostomy bag with stool in place. PSYCHIATRY: Alert and oriented x3. Mood and affect normal. INVESTIGATIONS: Hemoglobin 10.5, white count 7.4. ASSESSMENT: 1. Acute severe diverticulitis with perforation and secondary peritoneal soiling. 2. Sigmoid colectomy with end-colostomy. 3. Sigmoid diverticulosis. 4. Obesity; body mass index 31.9. 5. Anxiety and depression, not otherwise specified. 6. Acute blood-loss anemia as expected from surgery. 7. Acute blood-loss anemia as expected from surgery. 8. Metabolic acidosis from above. 9. Hyperchloremia. PLAN: Patient continues to improve. Doing well. Patient will be switched to oral antibiotics prior to discharge. Thank you, Dr. Staton. MMTAYLORL / IJN: [id number] /
--- NOTE | 2018-04-27 12:20 | PN ---
PROGRESS NOTE DATE OF SERVICE: 04/27/2018 REASON FOR FOLLOWUP: Secondary peritonitis from perforated diverticulitis. INTERVAL HISTORY: The patient is afebrile. She is feeling better. Breathing comfortably. She has been tolerating her diet. Denies having any chest pain or shortness of breath or cough. PHYSICAL EXAMINATION: On examination, blood pressure is 130/84 with a pulse of 88, temperature 99.3. She is 93% on room air. General description is a middle-aged female up in the chair in no distress. RESPIRATORY SYSTEM: Unlabored breathing, clear to auscultation anteriorly. HEART: S1, S2. Regular rate and rhythm. ABDOMEN: Soft, no tenderness. LABS: Hemoglobin 12.5, white count 6.9, BUN of 8, creatinine 0.44. DIAGNOSTIC IMPRESSION AND PLAN: Patient with secondary peritonitis from perforated diverticulitis, status post diverting colostomy. Culture positive Escherichia coli, strep and anaerobic gram- negative. Plan to finish therapy with oral Cipro 500 mg twice a day along with Flagyl 500 mg three times a day for days with close outpatient followup. MMODL / IJN: [id number] /
[2018-04-27] MEDS ORDERED: metroNIDAZOLE 500 MG TAB PO SCH (16:00)
--- NOTE | 2018-04-28 06:36 | PN ---
PROGRESS NOTE DATE OF SERVICE: 04/27/2018 PRESENTING COMPLAINT: Abdominal surgery. INTERVAL HISTORY: The patient is doing much better. Tolerating a diet. Colostomy is working well. Pain is controlled. Up and about. REVIEW OF SYSTEMS: Review of systems done for constitutional, cardiovascular, GI, pulmonary; relevant findings as above. CURRENT MEDICATIONS: Current medications include IV ceftriaxone and Flagyl. PHYSICAL EXAMINATION: On examination, temperature 99.3, pulse 88, respiration 16, blood pressure 130/84, pulse ox 93% on room air. GENERAL APPEARANCE: Sitting up, comfortable. EYES: Pupils equal. Conjunctivae normal. HENT: External appearance of nose and ears normal. Oral cavity normal. NECK: JVD not raised. Mass not palpable. RESPIRATORY: Effort normal. LUNGS: Decreased breath sounds. CARDIOVASCULAR: First and second sounds normal. No edema. ABDOMEN: Soft, nontender. Incision VAC in place. Colostomy bag with stool in place. PSYCHIATRY: Alert and oriented x3. Mood and affect normal. INVESTIGATIONS: Hemoglobin 12.5. Potassium 3.9. ASSESSMENT: 1. Acute severe diverticulitis with perforation with secondary peritoneal followed by sigmoid colectomy and colostomy, now functioning well. 2. Sigmoid diverticulosis. 3. Obesity; body mass index 31.9. 4. Anxiety, depression, not otherwise specified. 5. Acute blood loss anemia expected from surgery. 6. Metabolic acidosis, improved. 7. Hyperchloremia, improved. Care was discussed with the patient and at bedside. Patient being discharged home on Cipro and Flagyl per Dr. Yanez. The patient to follow up with the family doctor. Thank you Dr. Staton. MMTAYLORL / IJN: [id number] /
== END 2018-04-27 13:16 | disposition home health service (06) | DRG 330 ==
LOC: EC 04:47 → 3SUR 07:03
PROVIDERS: ADMIT Surgery; ATTEND Surgery
PROC: 0DBN0ZZ Excision of Sigmoid Colon, Open Approach (ICD-10-PCS; principal; 2018-04-21 11:50)
PROC: 0D1N0Z4 Bypass Sigmoid Colon to Cutaneous, Open Approach (ICD-10-PCS; principal; 2018-04-21 11:50)
DX: K57.20 Diverticulitis of large intestine with perforation and abscess without bleeding (principal); D62 Acute posthemorrhagic anemia; E87.2 Acidosis; F41.9 Anxiety disorder, unspecified; F32.9 Major depressive disorder, single episode, unspecified; E66.9 Obesity, unspecified; R00.0 Tachycardia, unspecified; E87.8 Other disorders of electrolyte and fluid balance, not elsewhere classified; Z79.899 Other long term (current) drug therapy; Z88.1 Allergy status to other antibiotic agents; Z88.0 Allergy status to penicillin; Z90.710 Acquired absence of both cervix and uterus; Z92.21 Personal history of antineoplastic chemotherapy; Z85.43 Personal history of malignant neoplasm of ovary; Z80.8 Family history of malignant neoplasm of other organs or systems; Z68.31 Body mass index [BMI] 31.0-31.9, adult
CPT/HCPCS: 36415; 71046; 74018; 74176; 80048; 80053; 81001; 82150; 83605; 83690; 85025; 87040; 87070; 87075; 87077; 87186; 87205; 88307; 96361; 96374; 96375; 99291

== ENCOUNTER → 2018-07-29 | Outpatient (CLI) | payer BC ==
--- NOTE | 2018-07-29 15:42 | US ---
EXAMINATION TYPE: US thyroid st tissue head/neck DATE OF EXAM: 07/29/2018 COMPARISON: NONE CLINICAL HISTORY: E04.1 Nontoxic Single Thyroid Nodule. follow up, losing hair GLAND SIZE: Right Lobe: 3.9 x 1.2 x 1.3 cm Overall Parenchyma: heterogenous Left Lobe: 3.8 x 1.3 x 1.4 cm Overall Parenchyma: heterogeneous Isthmus Thickness: 0.2 cm NODULES RIGHT: # of nodules measured on right: 1 1. 0.5 X 0.5 x 0.3 cm hypoechoic solid nodule at the mid pole with well-defined margins. This nodu le is wider than tall and shows no intranodular vascularity. Prior size: 0.4 x 0.3 x 0.3 cm LEFT: # of nodules measured on left: 1 1. 0.6 X 0.6 x 0.7 cm hypoechoic solid nodule at the lower pole with well-defined margins; interrup elliott peripheral calcification. This nodule is wider than tall and shows no intranodular vascularity. Prior size: 0.9 x 0.9 x 0.9 cm ISTHMUS: # of nodules measured in the isthmus: 0 Bilateral neck scanned, no evidence of lymphadenopathy. IMPRESSION: 1. Subcentimeter nodules bilateral thyroid lobes.
== END | disposition home or self-care (01) ==
LOC: RADUSWWP 14:43
PROVIDERS: ATTEND Family Medicine
DX: E04.2 Nontoxic multinodular goiter (principal)
CPT/HCPCS: 76536

== ENCOUNTER → 2018-08-25 | Outpatient (CLI) | payer BC ==
[2018-08-25 15:35] LABS: Basophils % (A) 0 %; Eosinophils # (A) 0.1 k/uL (0-0.7); Eosinophils % (A) 2 %; HGB 13.8 gm/dL (11.4-16.0); Lymphocytes # (A) 1.9 k/uL (1.0-4.8); Lymphocytes % (A) 38 %; MCH 27.8 pg (25.0-35.0); MCV 84.4 fL (80.0-100.0); Mean Platelet Volume 6.2; Monocytes # (A) 0.3 k/uL (0-1.0); Monocytes % (A) 5 %; Neutrophils # (A) 2.6 k/uL (1.3-7.7); Neutrophils % (A) 52 %; Platelet Count 264 k/uL (150-450); RBC 4.97 m/uL (3.80-5.40); RDW 14.2 % (11.5-15.5); WBC 4.9 k/uL (3.8-10.6)
[2018-08-25 15:47] LABS: Partial Thromboplastin Time 25.4 sec (22.0-30.0); Prothrombin Time 9.9 sec (9.0-12.0)
[2018-08-25 16:02] LABS: Potassium 4.2 mmol/L (3.5-5.1)
== END | disposition home or self-care (01) ==
LOC: LABPAT 14:13
PROVIDERS: ATTEND Surgery
DX: Z01.818 Encounter for other preprocedural examination (principal); K57.92 Diverticulitis of intestine, part unspecified, without perforation or abscess without bleeding; Z01.812 Encounter for preprocedural laboratory examination
CPT/HCPCS: 36415; 80051; 85025; 85610; 85730; 93005

== ENCOUNTER 2018-08-30 07:33 | Inpatient (IN) | payer BC ==
[2018-08-25 08:18] VITALS: BMI 31.6
[~2018-08-30 07:33] MED LIST changes: -HYDROmorphone 1 MG/ML 1 ML SYRINGE IVP PRN; +MORPHINE SULFATE 4 MG/ML SYRINGE IV PRN; -Pre Op ABX Message 1 EACH MISC MISCELLANE ONE
[2018-08-30] MEDS: LACTATED RINGERS 1,000 ML IV SCH ×2 (07:48→22:30)
[2018-08-30] MEDS ORDERED: LIDOCAINE 1% 20 ML VIAL (10MG/ML) FOR IV START INTRADERMA ONE ×2 (07:48→08:15)
[2018-08-30] MEDS ORDERED: fentaNYL (PF) 50 MCG/ML 2 ML AMP IV ONE (08:35)
[2018-08-30] MEDS ORDERED: NALOXONE 0.4 MG/ML 1 ML VIAL IV PRN (08:39)
[2018-08-30] MEDS ORDERED: diphenhydrAMINE 25 MG CAP PO PRN (08:39)
[2018-08-30] MEDS ORDERED: NALBUPHINE 10 MG/ML VIAL (10ML MDV) IV PRN (08:39)
[2018-08-30] MEDS ORDERED: ONDANSETRON 4 MG/2 ML VIAL IVP PRN (08:39)
[2018-08-30] MEDS ORDERED: ONDANSETRON 4 MG/2 ML VIAL ONE (09:51)
[2018-08-30] MEDS ORDERED: LIDOCAINE 1% INJ 10MG/ML (20 ML MDV) ONE (09:51)
[2018-08-30] MEDS ORDERED: PROPOFOL 10 MG/ML 20 ML VIAL IV ONE (09:51)
[2018-08-30] MEDS ORDERED: ROCURONIUM BROMIDE 10 MG/ML 10 ML VIAL IV ONE (09:51)
[2018-08-30] MEDS ORDERED: NEOSTIGMINE 1 MG/ML 10 ML VIAL ONE (09:51)
[2018-08-30] MEDS ORDERED: GLYCOPYRROLATE 0.2 MG/ML 2 ML VIAL ONE (09:51)
[2018-08-30] MEDS ORDERED: fentaNYL (PF) 50 MCG/ML 2 ML AMP ONE (09:51)
[2018-08-30] MEDS ORDERED: MIDAZOLAM 2 MG/2 ML VIAL ONE (09:51)
[2018-08-30] MEDS: ceFAZolin IN SWFI 2 GM/20 ML SYRINGE IVP ONE ×2 (09:55→10:23)
[2018-08-30] MEDS: metroNIDAZOLE-NS PMX 500 MG in SALINE 1 100ML.BAG IVPB ONE ×2 (09:55→10:23)
[2018-08-30] MEDS ORDERED: LACTATED RINGERS 1,000 ML IV ONE ×2 (10:27→12:02)
--- NOTE | 2018-08-30 12:29 | P.OP ---
Date of Procedure: 08/30/18 Preoperative Diagnosis: History of Abraham's procedure, and ostomy Postoperative Diagnosis: History of Abraham's procedure, end ostomy Procedure(s) Performed: Reversal of end ostomy, Abraham's reversal Anesthesia: MILAGROS Surgeon: Mariano Staton Jewelry Racker #1: Constantine Kerr Estimated Blood Loss (ml): 45 Pathology: other (Ostomy, rectal stump) Condition: stable Disposition: floor Indications for Procedure: 47-year-old female had a Abraham's creation after he perforated diverticulitis. The patient has been tolerating her ostomy for a few months and has opted for ostomy reversal. She presents today for an elective ostomy reversal. She did undergo a preparation for this. Operative Findings: Mild small bowel adhesions Anastomosis appeared patent with no obvious leak on leak test Description of Procedure: The patient was taken to the operating suite and placed on the operating table in supine position. Sedation was provided by anesthesia and the patient underwent endotracheal intubation. A Burch catheter was placed. The ostomy was closed with a 2-0 Vicryl suture and the patient was immediately prepped and draped in regular sterile fashion. The abdominal wall was opened with a 10 blade at the previous incision site. Electrocautery was used for complete hemostasis through the midline. The fascia was opened along the length of the incision. Once the abdomen was entered, mild adhesions were noted in the left lower quadrant between the small bowel and the abdominal wall. These were dissected using Metzenbaum scissors. Once the small bowel was completely free from the anterior abdominal wall and left lower quadrant, the rectal stump was clearly visualized. All adhesions from this site were dissected free. This was done in a 360 fashion. It was clear that there was enough slack for an anastomosis. The ostomy was taken down with an elliptical incision with cautery and the meticulous dissection with Metzenbaum scissors and electrocautery down to the anterior abdominal wall, where meticulous dissection was carried to separate the entire ostomy from the abdominal wall. The bowel was then dropped within the abdominal cavity. The proximal colon was then cleaned of some adhesive tissue and the ostomy was resected using a 60 mm stapling device. The staple line was then cut using Metzenbaum scissors and dilator was used. It was decided to use a 25 mm EEA stapler. Anvil was then placed within the proximal bowel and pursestring suture was placed around the anvil site. The assistant professor of psychology surgeon then placed the EEA stapler through the rectum and the spike from the EEA was used to perforate the rectum and the coordinating piece was applied. The EEA was then fired. Once it was fired and removed, the pelvis was filled with fluid and a leak test was performed. There were no evidence of bubbles or air coming through the anastomosis by introducing air through the rectum. 2 donuts were noted to be sufficient. Copious amounts of irrigation was used within the peritoneal cavity. Sponge count and instrument count were performed and were noted to be accurate. The fascial incision at the ostomy site was closed with a running 1 PDS suture. The midline was closed with a running looped PDS suture. Skin camille were then placed. The previous ostomy site was closed in a circular fashion using a 2-0 Vicryl suture and placing an iodoform packing in place. The patient was awakened in the operating suite and taken to postanesthesia care unit in stable condition.
[2018-08-30] MEDS: METOCLOPRAMIDE 5 MG/ML 2 ML VIAL IVP SCH ×3 (13:36→23:21)
[2018-08-30] MEDS: HEPARIN SODIUM,PORCINE 5,000 UNIT/ML 1 ML VIAL SQ SCH ×2 (15:55→23:20)
[2018-08-30] MEDS ORDERED: SODIUM CHLORIDE 0.9% 1,000 ML IV ONE (20:55)
[2018-08-30] MEDS: FAMOTIDINE 20 MG/2 ML VIAL IV SCH (21:05)
[2018-08-31] MEDS: ROPIVACAINE 250 MG, fentaNYL (PF) 1,250 MCG in SODIUM CHLORIDE 0.9% 175 ML EPIDURAL PRN ×2 (04:49→08:46)
[2018-08-31] MEDS ORDERED: SODIUM CHLORIDE 0.9% 1,000 ML IV ONE (05:51)
[2018-08-31] MEDS: METOCLOPRAMIDE 5 MG/ML 2 ML VIAL IVP SCH ×3 (05:55→18:01)
[2018-08-31 08:20] LABS: Basophils % (A) 0 %; Eosinophils % (A) 0 %; HCT 37.6 % (34.0-46.0); Lymphocytes # (A) 0.9 k/uL (1.0-4.8); Lymphocytes % (A) 11 %; MCH 27.1 pg (25.0-35.0); MCHC 31.8 g/dL (31.0-37.0); MCV 85.1 fL (80.0-100.0); Mean Platelet Volume 6.3; Monocytes # (A) 0.4 k/uL (0-1.0); Monocytes % (A) 5 %; Neutrophils # (A) 6.5 k/uL (1.3-7.7); Neutrophils % (A) 83 %; Platelet Count 215 k/uL (150-450); RBC 4.41 m/uL (3.80-5.40); WBC 7.9 k/uL (3.8-10.6)
[2018-08-31 08:29] LABS: Anion Gap 8 mmol/L; Blood Urea Nitrogen 13 mg/dL (7-17); Calcium 8.4 mg/dL (8.4-10.2); Carbon Dioxide 22 mmol/L (22-30); Chloride 109 mmol/L (98-107); Glucose 106 mg/dL (74-99); Potassium 3.8 mmol/L (3.5-5.1); Sodium 139 mmol/L (137-145)
--- NOTE | 2018-08-31 08:36 | P.PN ---
Subjective Progress Note Date: 08/31/18 Patient seen and examined at bedside. Patient states she is overall comfortable with some mild amount of pain around the incision site. The patient has had tachycardia since surgery. Urine output has been 300 mL over the last 12 hours. She denies any nausea and vomiting with her clear liquid diet. Objective - Vital Signs Vital signs: Vital Signs Temp 98.4 F 08/31/18 07:00 Pulse 108 H 08/31/18 07:00 Resp 16 08/31/18 07:00 BP 113/70 08/31/18 07:00 Pulse Ox 97 08/31/18 07:00 Intake & Output 08/30/18 08/31/18 08/31/18 18:59 06:59 18:59 Intake Total 2300 800 Output Total 260 300 Balance 2040 500 Weight 83.461 kg Intake: IV 2300 Intake, IV Titration 800 Amount Lactated Ringers 1,000 ml 800 @ 125 mls/hr IV .Q8H [facility] Rx#:[id number] Output: Urine 220 300 Estimated Blood Loss 40 Other: Voiding Method Indwelling Catheter Indwelling Catheter - Constitutional General appearance: Present: cooperative - EENT ENT: Present: hearing grossly normal - Respiratory Details: No difficulty with respiration - Gastrointestinal Gastrointestinal Comment(s): Soft, appropriate tenderness, nondistended, no rebound, no guarding - Psychiatric Psychiatric: Present: A&O x's 3 - Labs CBC & Chem 7: 08/31/18 06:46 Labs: Abnormal Lab Results - Last 24 Hours (Table) 08/31/18 Range/Units 06:46 Chloride 109 H (98-107) mmol/L Glucose 106 H (74-99) mg/dL Microbiology - Last 24 Hours (Table) 08/30/18 11:00 Gram Stain - Preliminary Abdomen Wound Culture - Preliminary 08/30/18 11:00 Anaerobic Culture - Preliminary Abdomen Assessment and Plan (1) S/P colostomy takedown Narrative/Plan: Postoperative day #1 from Inge reversal - Continue clear liquid diet - Continue Burch catheter due to low urine output and epidural - Continue IV fluids - Additional bolus of normal saline given this morning - Increase activity Current Visit: Yes Status: Acute Code(s): Z98.890 - OTHER SPECIFIED POSTPROCEDURAL STATES SNOMED Code(s): 97924992266866797
[2018-08-31] MEDS: HEPARIN SODIUM,PORCINE 5,000 UNIT/ML 1 ML VIAL SQ SCH ×2 (08:45→16:29)
[2018-08-31] MEDS: FAMOTIDINE 20 MG/2 ML VIAL IV SCH (08:45)
[2018-08-31] MEDS: LACTATED RINGERS 1,000 ML IV SCH ×2 (08:47→20:22)
--- NOTE | 2018-08-31 12:47 | P.PN ---
Progress Note - Text Anesthesia POD 1. Status Post ostomy reversal under general endotracheal anesthesia with an epidrual catheter placed at approximately T10 for post surgical pain releif. VAS (0, 6) with Ropivicaine 0.1 % and fentanyl 5 mcg / cc running at 11 cc / hr. Lower extremity strength (for/4). Minimal sedation. Site looks OK.
[2018-08-31] MEDS ORDERED: METOPROLOL SUCCINATE (ER) 25 MG TAB.ER.24H PO STA (19:43)
[2018-08-31] MEDS: FAMOTIDINE 20 MG TAB PO SCH (20:21)
[2018-09-01] MEDS: METOCLOPRAMIDE 5 MG/ML 2 ML VIAL IVP SCH ×5 (00:29→23:30)
[2018-09-01] MEDS: HEPARIN SODIUM,PORCINE 5,000 UNIT/ML 1 ML VIAL SQ SCH ×4 (00:29→23:31)
[2018-09-01] MEDS: ROPIVACAINE 250 MG, fentaNYL (PF) 1,250 MCG in SODIUM CHLORIDE 0.9% 175 ML EPIDURAL PRN ×2 (02:17→21:24)
[2018-09-01] MEDS: LACTATED RINGERS 1,000 ML IV SCH ×3 (06:00→23:34)
[2018-09-01] MEDS: FAMOTIDINE 20 MG TAB PO SCH ×2 (08:32→21:17)
[2018-09-01] MEDS: METOPROLOL SUCCINATE (ER) 25 MG TAB.ER.24H PO SCH (08:32)
[2018-09-01 09:05] LABS: Basophils % (A) 0 %; Eosinophils # (A) 0.1 k/uL (0-0.7); Eosinophils % (A) 1 %; HCT 34.3 % (34.0-46.0); HGB 11.4 gm/dL (11.4-16.0); Lymphocytes # (A) 0.9 k/uL (1.0-4.8); Lymphocytes % (A) 14 %; MCH 28.2 pg (25.0-35.0); MCHC 33.3 g/dL (31.0-37.0); MCV 84.8 fL (80.0-100.0); Mean Platelet Volume 6.5; Monocytes # (A) 0.3 k/uL (0-1.0); Monocytes % (A) 5 %; Neutrophils # (A) 5.3 k/uL (1.3-7.7); Neutrophils % (A) 79 %; Platelet Count 211 k/uL (150-450); RBC 4.05 m/uL (3.80-5.40); RDW 13.8 % (11.5-15.5); WBC 6.7 k/uL (3.8-10.6)
--- NOTE | 2018-09-01 09:06 | P.PN ---
Progress Note - Text Progress Note Date: 09/01/18 47-year-old female status post exploratory laparotomy or to me with ostomy reversal postop day #2, epidural catheter day #3. Patient doing well no motor or sensory deficits. Catheter site looks clean dry and intact, the VAS at rest is a 1-2 out of 10 in severity. With movement 3-4 out of 10. Can continue epidural catheter for 1 more day. Patient is on DVT prophylaxis please contact anesthesia prior to epidural catheter removal.
[2018-09-01 09:26] LABS: Anion Gap 7 mmol/L; Blood Urea Nitrogen 8 mg/dL (7-17); Calcium 8.9 mg/dL (8.4-10.2); Carbon Dioxide 25 mmol/L (22-30); Chloride 105 mmol/L (98-107); Glucose 101 mg/dL (74-99); Potassium 3.8 mmol/L (3.5-5.1); Sodium 137 mmol/L (137-145)
--- NOTE | 2018-09-01 14:34 | P.PN ---
Subjective Progress Note Date: 09/01/18 Patient seen and examined at bedside. States she has ambulated today. Pain is well-controlled. Patient has had tachycardia episodes. Patient does state that she has a history of tachycardia and takes metoprolol home. This was restarted today. The patient continues to have a Burch in place due to epidural with 1 L of output over the last 24 hours. Objective - Vital Signs Vital signs: Vital Signs Temp 98.2 F 09/01/18 07:30 Pulse 109 H 09/01/18 07:30 Resp 18 09/01/18 07:30 BP 106/69 09/01/18 07:30 Pulse Ox 95 09/01/18 07:30 Intake & Output 08/31/18 09/01/18 09/01/18 18:59 06:59 18:59 Intake Total 1039.5 1192.683 Output Total 1000 Balance 1039.5 192.683 Weight 83.461 kg Intake: Intake, IV Titration 1039.5 1192.683 Amount Lactated Ringers 1,000 ml 1000 @ 0 mls/hr IV .[facility] Rx#:[id number] Lactated Ringers 1,000 ml 1000 @ 125 mls/hr IV .Q8H [facility] Rx#:[id number] Ropivacaine 250 mg 39.5 192.683 fentaNYL (PF) 1,250 mcg In Sodium Chloride 0.9% 175 ml @ Per Protocol EPIDURAL .Q0M PRN Rx#: [id number] Output: Urine 1000 Other: Voiding Method Indwelling Catheter Indwelling Catheter Indwelling Catheter - Constitutional General appearance: Present: cooperative, no acute distress - Respiratory Details: No difficulty with respiration - Gastrointestinal Gastrointestinal Comment(s): Soft, appropriate tenderness, nondistended, no rebound, no guarding, incision site with camille in place - Psychiatric Psychiatric: Present: A&O x's 3 - Labs CBC & Chem 7: 09/01/18 08:20 09/01/18 08:20 Labs: Abnormal Lab Results - Last 24 Hours (Table) 09/01/18 09/01/18 Range/Units 08:20 08:20 Lymphocytes # 0.9 L (1.0-4.8) k/uL Creatinine 0.50 L (0.52-1.04) mg/dL Glucose 101 H (74-99) mg/dL Microbiology - Last 24 Hours (Table) 08/30/18 11:00 Gram Stain - Preliminary Abdomen Wound Culture - Preliminary Assessment and Plan (1) S/P colostomy takedown Narrative/Plan: Postoperative day #2 from Inge reversal - Continue clear liquid diet - Continue Burch catheter due to epidural - Continue IV fluids - Increase activity - Awaiting bowel function Current Visit: Yes Status: Acute Code(s): Z98.890 - OTHER SPECIFIED POSTPROCEDURAL STATES SNOMED Code(s): 35101126559632904
[2018-09-02] MEDS: METOCLOPRAMIDE 5 MG/ML 2 ML VIAL IVP SCH ×3 (05:08→17:28)
--- NOTE | 2018-09-02 05:40 | P.PN ---
Progress Note - Text Progress Note Date: 09/02/18 Postoperative day # 3 status post colostomy reversal ,epidural catheter placed for postoperative analgesia, patient doing well epidural site okay, patient currently on combination of epidural infusion solution of Ropivacaine 0.0625% and fentanyl, the infusion rate at 11 ml per hour , patient had no motor deficit epidural site okay , vital signs stable ,VAS 1 /10 , Assessment and plan= post operative day # 3 patient doing well ,pain well controlled , there is no anesthesia related complications , we'll consider removing the catheter today or tomorrow morning ,after we did discuss with the surgical service.
[2018-09-02] MEDS ORDERED: HYDROmorphone 1 MG/ML 1 ML SYRINGE IVP PRN (07:10)
--- NOTE | 2018-09-02 07:14 | P.PN ---
Subjective Progress Note Date: 09/02/18 Patient seen and examined at bedside. States she is feeling well. She states that she had 2 episodes of small amounts of flatus. Denies any nausea or vomiting. Objective - Vital Signs Vital signs: Vital Signs Temp 98.9 F 09/01/18 23:40 Pulse 96 09/01/18 23:40 Resp 20 09/01/18 20:00 BP 93/57 09/02/18 01:33 Pulse Ox 93 L 09/01/18 23:40 Intake & Output 09/01/18 09/02/18 09/02/18 18:59 06:59 18:59 Intake Total 1260 1210.283 Output Total 1200 675 Balance 60 535.283 Intake: Intake, IV Titration 1000 1210.283 Amount Lactated Ringers 1,000 ml 1000 1000 @ 125 mls/hr IV .Q8H [facility] Rx#:[id number] Ropivacaine 250 mg 210.283 fentaNYL (PF) 1,250 mcg In Sodium Chloride 0.9% 175 ml @ Per Protocol EPIDURAL .Q0M PRN Rx#: [id number] Oral 260 Output: Urine 1200 675 Other: Voiding Method Indwelling Catheter Indwelling Catheter - Constitutional General appearance: Present: cooperative, no acute distress - Respiratory Details: No difficulty with respiration - Gastrointestinal Gastrointestinal Comment(s): Soft, appropriate tenderness, nondistended, no rebound, no guarding, midline incision was surgical dressing in place, previous ostomy site with packing in place and mild drainage - Psychiatric Psychiatric: Present: A&O x's 3 - Labs CBC & Chem 7: 09/01/18 08:20 09/01/18 08:20 Labs: Abnormal Lab Results - Last 24 Hours (Table) 09/01/18 09/01/18 Range/Units 08:20 08:20 Lymphocytes # 0.9 L (1.0-4.8) k/uL Creatinine 0.50 L (0.52-1.04) mg/dL Glucose 101 H (74-99) mg/dL Microbiology - Last 24 Hours (Table) 08/30/18 11:00 Anaerobic Culture - Preliminary Abdomen 08/30/18 11:00 Gram Stain - Final Abdomen Wound Culture - Final Assessment and Plan (1) S/P colostomy takedown Narrative/Plan: Postoperative day #3 from Inge reversal - Advance to full liquid diet - Remove epidural today, begin by mouth and IV pain medication - Burch catheter to be removed after epidural is removed - Continue IV fluids at lower rate - Increase activity - Awaiting further bowel function Current Visit: Yes Status: Acute Code(s): Z98.890 - OTHER SPECIFIED POSTPROCEDURAL STATES SNOMED Code(s): 03306143737129479
[2018-09-02 08:29] LABS: Basophils % (A) 0 %; Eosinophils # (A) 0.1 k/uL (0-0.7); Eosinophils % (A) 3 %; HCT 31.1 % (34.0-46.0); HGB 10.2 gm/dL (11.4-16.0); Lymphocytes # (A) 1.1 k/uL (1.0-4.8); Lymphocytes % (A) 23 %; MCH 27.6 pg (25.0-35.0); MCHC 32.8 g/dL (31.0-37.0); MCV 84.2 fL (80.0-100.0); Mean Platelet Volume 6.4; Monocytes # (A) 0.2 k/uL (0-1.0); Monocytes % (A) 4 %; Neutrophils # (A) 3.3 k/uL (1.3-7.7); Neutrophils % (A) 69 %; Platelet Count 186 k/uL (150-450); RBC 3.69 m/uL (3.80-5.40); RDW 13.8 % (11.5-15.5); WBC 4.9 k/uL (3.8-10.6)
[2018-09-02 08:35] LABS: Anion Gap 9 mmol/L; Blood Urea Nitrogen 8 mg/dL (7-17); Calcium 8.3 mg/dL (8.4-10.2); Carbon Dioxide 25 mmol/L (22-30); Chloride 103 mmol/L (98-107); Glucose 86 mg/dL (74-99); Potassium 3.6 mmol/L (3.5-5.1); Sodium 137 mmol/L (137-145)
[2018-09-02] MEDS: HEPARIN SODIUM,PORCINE 5,000 UNIT/ML 1 ML VIAL SQ SCH ×2 (08:52→17:28)
[2018-09-02] MEDS: FAMOTIDINE 20 MG TAB PO SCH ×2 (08:53→20:37)
[2018-09-02] MEDS: LACTATED RINGERS 1,000 ML IV SCH ×2 (08:53→17:32)
[2018-09-02] MEDS: METOPROLOL SUCCINATE (ER) 25 MG TAB.ER.24H PO SCH (08:53)
[2018-09-02] MEDS: ACETAMINOPHEN TAB 325 MG TAB PO PRN ×2 (12:55→17:37)
[2018-09-02] MEDS: HYDROcodone/APAP 5-325MG 1 EACH TAB PO PRN ×2 (12:56→17:35)
[2018-09-03] MEDS: METOCLOPRAMIDE 5 MG/ML 2 ML VIAL IVP SCH ×5 (00:17→23:31)
[2018-09-03] MEDS: HEPARIN SODIUM,PORCINE 5,000 UNIT/ML 1 ML VIAL SQ SCH ×4 (00:17→23:31)
[2018-09-03] MEDS: HYDROcodone/APAP 5-325MG 1 EACH TAB PO PRN ×4 (00:17→21:00)
[2018-09-03] MEDS: LACTATED RINGERS 1,000 ML IV SCH ×3 (00:49→23:33)
[2018-09-03 08:43] LABS: Anion Gap 11 mmol/L; Blood Urea Nitrogen 7 mg/dL (7-17); Calcium 8.8 mg/dL (8.4-10.2); Carbon Dioxide 24 mmol/L (22-30); Chloride 104 mmol/L (98-107); Glucose 94 mg/dL (74-99); Potassium 3.5 mmol/L (3.5-5.1); Sodium 139 mmol/L (137-145)
[2018-09-03] MEDS: METOPROLOL SUCCINATE (ER) 25 MG TAB.ER.24H PO SCH (09:04)
[2018-09-03] MEDS: FAMOTIDINE 20 MG TAB PO SCH ×2 (09:06→21:00)
[2018-09-03 09:09] LABS: Basophils % (A) 0 %; Eosinophils # (A) 0.2 k/uL (0-0.7); Eosinophils % (A) 3 %; HCT 32.5 % (34.0-46.0); HGB 10.6 gm/dL (11.4-16.0); Lymphocytes % (A) 20 %; MCH 28.2 pg (25.0-35.0); MCHC 32.8 g/dL (31.0-37.0); Mean Platelet Volume 6.6; Monocytes # (A) 0.2 k/uL (0-1.0); Monocytes % (A) 4 %; Neutrophils # (A) 3.3 k/uL (1.3-7.7); Neutrophils % (A) 70 %; Platelet Count 205 k/uL (150-450); RBC 3.78 m/uL (3.80-5.40); RDW 14.1 % (11.5-15.5); WBC 4.8 k/uL (3.8-10.6)
--- NOTE | 2018-09-03 10:42 | P.PN ---
Subjective Progress Note Date: 09/03/18 Principal diagnosis: Status post reversal of colostomy The patient is postop day 4 reversal of colostomy. She's feeling good. Some incisional pain. She started to pass quite a bit of flatus. Tolerating a diet. She like more to eat. Using the incentive spirometry and ambulating in the aly well. Objective - Vital Signs Vital signs: Vital Signs Temp 98.3 F 09/03/18 09:02 Pulse 108 H 09/03/18 09:02 Resp 16 09/03/18 09:02 BP 127/66 09/03/18 09:02 Pulse Ox 94 L 09/03/18 09:02 Intake & Output 09/02/18 09/03/18 09/03/18 18:59 06:59 18:59 Intake Total 520 240 Output Total 1500 Balance -980 240 Weight 83.461 kg Intake: Intake, IV Titration 400 Amount Lactated Ringers 1,000 ml 400 @ 100 mls/hr IV .Q10H [facility] Rx#:[id number] Oral 120 240 Output: Urine 1500 Other: Voiding Method Toilet Toilet # Voids 1 - Constitutional General appearance: Present: cooperative, no acute distress - Respiratory Respiratory: bilateral: CTA - Cardiovascular Rhythm: regular - Gastrointestinal Gastrointestinal Comment(s): The dressing on the midline incision is clean and dry. No cellulitis at the colostomy closure site about 2-3 inches of packing was removed. There is little mucoid drainage. General gastrointestinal: Present: normal bowel sounds, soft - Labs CBC & Chem 7: 09/03/18 07:35 09/03/18 07:35 Labs: Abnormal Lab Results - Last 24 Hours (Table) 09/03/18 09/03/18 Range/Units 07:35 07:35 RBC 3.78 L (3.80-5.40) m/uL Hgb 10.6 L (11.4-16.0) gm/dL Hct 32.5 L (34.0-46.0) % Creatinine 0.45 L (0.52-1.04) mg/dL Assessment and Plan (1) Chronic tachycardia Current Visit: Yes Status: Acute Code(s): R00.0 - TACHYCARDIA, UNSPECIFIED SNOMED Code(s): 4292140 (2) S/P colostomy takedown Current Visit: Yes Status: Acute Code(s): Z98.890 - OTHER SPECIFIED POSTPROCEDURAL STATES SNOMED Code(s): 64835554961929788 Plan: The diet will be advanced. Encouraged her to continue using the incentive spirometry and ambulate. She is progressing slowly.
[2018-09-03] MEDS: ACETAMINOPHEN TAB 325 MG TAB PO PRN (12:34)
[2018-09-04] MEDS: HYDROcodone/APAP 5-325MG 1 EACH TAB PO PRN (04:44)
[2018-09-04] MEDS: LACTATED RINGERS 1,000 ML IV SCH ×2 (05:21→08:50)
[2018-09-04] MEDS: METOCLOPRAMIDE 5 MG/ML 2 ML VIAL IVP SCH ×4 (05:39→23:36)
[2018-09-04] MEDS: METOPROLOL SUCCINATE (ER) 25 MG TAB.ER.24H PO SCH (08:48)
[2018-09-04] MEDS: ACETAMINOPHEN TAB 325 MG TAB PO PRN ×2 (08:48→15:56)
[2018-09-04] MEDS: HEPARIN SODIUM,PORCINE 5,000 UNIT/ML 1 ML VIAL SQ SCH ×3 (08:49→23:36)
[2018-09-04] MEDS: FAMOTIDINE 20 MG TAB PO SCH ×2 (08:49→21:50)
--- NOTE | 2018-09-04 11:23 | P.PN ---
Subjective Progress Note Date: 09/04/18 Principal diagnosis: Status post reversal of colostomy The patient is doing well. She is tolerating her diet. No nausea or vomiting. Passing flatus. Ambulating well. No bowel movement yet. Objective - Vital Signs Vital signs: Vital Signs Temp 97.8 F 09/04/18 08:00 Pulse 100 09/04/18 08:00 Resp 18 09/04/18 08:00 BP 128/83 09/04/18 08:00 Pulse Ox 95 09/04/18 08:00 Intake & Output 09/03/18 09/04/18 09/04/18 18:59 06:59 18:59 Intake Total 800 1480 Balance 800 1480 Intake: IV 800 Lactated Ringers 1,000 ml 800 @ 100 mls/hr IV .Q10H [facility] Rx#:[id number] Intake, IV Titration 1000 Amount Lactated Ringers 1,000 ml 1000 @ 100 mls/hr IV .Q10H [facility] Rx#:[id number] Oral 480 Other: Voiding Method Toilet # Voids 2 1 - Constitutional General appearance: Present: cooperative, no acute distress - Respiratory Respiratory: bilateral: CTA - Gastrointestinal General gastrointestinal: Present: normal bowel sounds, soft Localized gastrointestinal: surgical scar: diffuse (Midline dressing is intact clean and dry. The colostomy site shows no evidence of cellulitis. About 2 inches of packing was removed and nursing will clotted off.) - Labs CBC & Chem 7: 09/03/18 07:35 09/03/18 07:35 Labs: Microbiology - Last 24 Hours (Table) 08/30/18 11:00 Anaerobic Culture - Final Abdomen Assessment and Plan (1) Chronic tachycardia Current Visit: Yes Status: Acute Code(s): R00.0 - TACHYCARDIA, UNSPECIFIED SNOMED Code(s): 1476932 (2) S/P colostomy takedown Current Visit: Yes Status: Acute Code(s): Z98.890 - OTHER SPECIFIED POSTPROCEDURAL STATES SNOMED Code(s): 94291011583871605 Plan: Patient's doing well. We'll saline lock her IV. Allow her to shower with a waterproof dressing in place. Encourage ambulation and incentive spirometry. She's progressing well.
[2018-09-04 20:00] VITALS: RESP 16
[2018-09-05] MEDS: LACTATED RINGERS 1,000 ML IV SCH (04:38)
[2018-09-05] MEDS: METOCLOPRAMIDE 5 MG/ML 2 ML VIAL IVP SCH (05:27)
[2018-09-05 07:43] VITALS: BP 113/70; PULSE 108; TEMP 98.2
[2018-09-05] MEDS: FAMOTIDINE 20 MG TAB PO SCH (08:17)
[2018-09-05] MEDS: HEPARIN SODIUM,PORCINE 5,000 UNIT/ML 1 ML VIAL SQ SCH (08:17)
[2018-09-05] MEDS: METOPROLOL SUCCINATE (ER) 25 MG TAB.ER.24H PO SCH (08:17)
--- NOTE | 2018-09-05 10:19 | P.DS ---
Providers Date of admission: 08/30/18 07:33 Attending physician: Mariano Staton DO Primary care physician: Lupillo Solorio - Discharge Diagnosis(es) (1) S/P colostomy takedown Current Visit: Yes Status: Acute Hospital Course: Patient presented for an elective reversal of Abraham's procedure. Postoperatively, the patient was sent to the medical surgical floor. Over the course of her admission, she improved. Pain was initially covered with epidural and then oral pain medication. Packing was slowly removed from her ostomy reversal site. The patient began urinating on her own. She is ambulating on her own. She is having bowel function with a bowel movement that was had on her day of discharge. The patient is surgically stable for discharge. Procedures: Abraham's reversal Patient Condition at Discharge: Good Plan - Discharge Summary Discharge Rx Participant: Yes New Discharge Prescriptions: New HYDROcodone/APAP 5-325MG [[place] 5-325] 1 each PO Q6HR PRN #15 tab PRN Reason: Moderate Pain Docusate [Colace] 100 mg PO DAILY #20 capsule Continue Sertraline [Zoloft] 25 mg PO QAM Multivitamin,Therapeutic [Thera] 1 tab PO DAILY LORazepam [Ativan] 0.5 mg PO BID PRN PRN Reason: Anxiety Metoprolol Succinate (ER) [Toprol XL] 12.5 mg PO DAILY metroNIDAZOLE [Flagyl] 250 mg PO TID Turmeric Root Extract [Turmeric] 500 mg PO DAILY Biotin 5 mg PO DAILY Discharge Medication List Sertraline [Zoloft] 25 mg PO QAM 12/22/15 [History] LORazepam [Ativan] 0.5 mg PO BID PRN 04/21/18 [History] Metoprolol Succinate (ER) [Toprol XL] 12.5 mg PO DAILY 04/21/18 [History] Multivitamin,Therapeutic [Thera] 1 tab PO DAILY 04/21/18 [History] Biotin 5 mg PO DAILY 08/30/18 [History] Turmeric Root Extract [Turmeric] 500 mg PO DAILY 08/30/18 [History] metroNIDAZOLE [Flagyl] 250 mg PO TID 08/30/18 [History] Docusate [Colace] 100 mg PO DAILY #20 capsule 09/05/18 [Rx] HYDROcodone/APAP 5-325MG [[place] 5-325] 1 each PO Q6HR PRN #15 tab 09/05/18 [Rx] Follow up Appointment(s)/Referral(s): Mariano Staton DO [Doctor of Osteopathic Medicine] - 10 Days Activity/Diet/Wound Care/Special Instructions: OK to shower Change dressing daily Continue a soft diet No lifting greater than 5 pounds No driving Discharge Disposition: HOME SELF-CARE
== END 2018-09-05 12:05 | disposition home or self-care (01) | DRG 331 ==
LOC: 2ORMAIN 07:33 → 4SSUR 12:11
PROVIDERS: ADMIT Surgery; ATTEND Surgery
PROC: 0DQN0ZZ Repair Sigmoid Colon, Open Approach (ICD-10-PCS; principal; 2018-08-30 09:30)
DX: Z43.3 Encounter for attention to colostomy (principal); K66.0 Peritoneal adhesions (postprocedural) (postinfection); R00.0 Tachycardia, unspecified; Z79.899 Other long term (current) drug therapy; Z88.1 Allergy status to other antibiotic agents; Z88.0 Allergy status to penicillin; Z88.8 Allergy status to other drugs, medicaments and biological substances
CPT/HCPCS: 80048; 85025; 86850; 86900; 86901; 87070; 87075; 87205; 88304; 88307

== ENCOUNTER 2018-10-12 12:43 | Emergency (ER) | payer BC ==
[2018-10-12 13:25] VITALS: BP 130/84; PULSE 98; RESP 18; TEMP 98.3
--- NOTE | 2018-10-12 14:56 | ED ---
Skin/Abscess/FB HPI - General Chief complaint: Skin/Abscess/Foreign Body Stated complaint: poss infection after surgery Time Seen by Provider: 10/12/18 14:25 Source: patient, RN notes reviewed, old records reviewed Mode of arrival: ambulatory Limitations: no limitations - History of Present Illness Initial comments: Vanessa is a pleasant 48-year-old female who presents emergency department today with irritation over her abdominal wall. Patient reports that she had reversal of her colostomy. She reports this was done by Dr. Staton in August. Patient states that over the past day she's noticed some irritation over the incision site. Patient reports that she's had some yellow drainage. She denies any nausea or vomiting. She denies any fever or chills or surrounding erythema. - Related Data Home Medications Medication Instructions Recorded Confirmed Sertraline [Zoloft] 25 mg PO QAM 12/22/15 10/12/18 LORazepam [Ativan] 0.5 mg PO DIRECTED 04/21/18 10/12/18 Metoprolol Succinate (ER) [Toprol 12.5 mg PO DAILY 04/21/18 10/12/18 XL] Multivitamin,Therapeutic [Thera] 1 tab PO DAILY 04/21/18 10/12/18 Cholecalciferol [Vitamin D3] 1,000 unit PO DAILY 10/12/18 10/12/18 Naproxen Sodium [Aleve] 220 mg PO DAILY PRN 10/12/18 10/12/18 Previous Rx's Medication Instructions Recorded Cephalexin [Keflex] 500 mg PO Q8HR #21 cap 10/12/18 Allergies Allergy/AdvReac Type Severity Reaction Status Date / Time erythromycin base Allergy Rash/Hives Verified 10/12/18 14:04 [Erythromycin Base] paclitaxel [From Taxol] Allergy Anaphylaxis Verified 10/12/18 14:04 Penicillins Allergy Rash/Hives Verified 10/12/18 14:04 tamoxifen Allergy Anaphylaxis Verified 10/12/18 14:04 Review of Systems ROS Statement: Those systems with pertinent positive or pertinent negative responses have been documented in the HPI. ROS Other: All systems not noted in ROS Statement are negative. Past Medical History Past Medical History: GERD/Reflux, Hyperlipidemia, Hypertension, Musculoskeletal Disorder, Pneumonia, Thyroid Disorder Additional Past Medical History / Comment(s): Ovarian Cancer. TACHYCARDIA, hx migraines, pneumonia 1999, diverticulitis caused rupture 04/21/18, thyroid nodules , hx anemia, born with one kidney. History of Any Multi-Drug Resistant Organisms: MRSA Date of last positivie culture/infection: 01/2018 MDRO Source:: left shoulder Past Surgical History: Appendectomy, Bowel Resection, Breast Surgery, Hysterectomy, Orthopedic Surgery Additional Past Surgical History / Comment(s): LT shoulder Rotator cuff; RT BREAST biopsy, ANAL SX AT , bowel resection with colostomy 04/2018 Past Anesthesia/Blood Transfusion Reactions: Previous Problems w/ Anesthesia, Motion Sickness, Postoperative Nausea & Vomiting (PONV) Additional Past Anesthesia/Blood Transfusion Reaction / Comment(s): STATES SEVERE NAUSEA LASTED FOR ONE MONTH POST HYSTERECTOMY and bowel resection. DIFFICULTY WAKING UP AFTER SURGERY PER PT. Past Psychological History: Anxiety, Depression Smoking Status: Never smoker Past Alcohol Use History: None Reported Past Drug Use History: None Reported - Past Family History Mother Family Medical History: Cancer Additional Family Medical History / Comment(s): THYROID Father Additional Family Medical History / Comment(s): Father from bowel blockage at the age of 69yrs. General Exam - General Exam Comments Initial Comments: 49-year-old female. Alert and oriented. Patient appears in no distress. Limitations: no limitations General appearance: alert, in no apparent distress Head exam: Present: atraumatic, normocephalic, normal inspection Eye exam: Present: normal appearance, PERRL, EOMI. Absent: scleral icterus, conjunctival injection, periorbital swelling ENT exam: Present: normal exam, mucous membranes moist Neck exam: Present: normal inspection. Absent: tenderness, meningismus, lymphadenopathy Respiratory exam: Present: normal lung sounds bilaterally. Absent: respiratory distress, wheezes, rales, rhonchi, stridor Cardiovascular Exam: Present: regular rate, normal rhythm, normal heart sounds. Absent: systolic murmur, diastolic murmur, rubs, gallop, clicks GI/Abdominal exam: Present: soft, normal bowel sounds, other (blister like lesion over left upper abdomen over incsion site. No dehiscence. Patient underwear line comes at that area. ). Absent: distended, tenderness, guarding, rebound, rigid Extremities exam: Present: normal inspection, full ROM, normal capillary refill. Absent: tenderness, pedal edema, joint swelling, calf tenderness Back exam: Present: normal inspection Neurological exam: Present: alert, oriented X3, CN II-XII intact Psychiatric exam: Present: normal affect, normal mood Skin exam: Present: warm, dry, intact, normal color. Absent: rash Course Vital Signs 10/12/18 13:22 Temperature 98.3 F Pulse Rate 98 Respiratory 18 Rate Blood Pressure 130/84 Medical Decision Making - Medical Decision Making Patient has a 48-year-old female who presents for his corona today with surgical site irritation. She has a small blister over the site from her ostomy removal. She has some some minor yellow clear drainage from the site. Likely seroma. Discussed we will do a culture of this. She is very concerned for infection. Discussed putting her on a short course of Keflex until cultures obtained. Patient is advised to follow-up promptly with her surgeon. Discussed monitoring for erythema or any worsening signs or other skin changes. Patient agrees to treatment plan will comply. Disposition Clinical Impression: Superficial incisional surgical site infection Disposition: HOME SELF-CARE Condition: Good Instructions: Surgical Site Infections (ED) Additional Instructions: Patient advised to have follow-up with primary care physician. Patient should apply dry dressings over the area with tape. Return to emergency department if any alarming signs or symptoms occur. Follow-up with your hand frame surgical elastic knitter as well. Prescriptions: Cephalexin [Keflex] 500 mg PO Q8HR #21 cap Is patient prescribed a controlled substance at d/c from ED?: No Referrals: Lupillo Solorio DO [Primary Care Provider] - 1-2 days Mariano Staton DO [Doctor of Osteopathic Medicine] - 1-2 days Time of Disposition: 14:59
== END 2018-10-12 15:12 | disposition home or self-care (01) ==
LOC: EC 12:43
DX: K94.02 Colostomy infection (principal); I10 Essential (primary) hypertension; F41.9 Anxiety disorder, unspecified; F32.9 Major depressive disorder, single episode, unspecified; Z85.43 Personal history of malignant neoplasm of ovary; Z87.19 Personal history of other diseases of the digestive system; Z86.14 Personal history of Methicillin resistant Staphylococcus aureus infection; Z90.49 Acquired absence of other specified parts of digestive tract; Z98.890 Other specified postprocedural states; Z90.710 Acquired absence of both cervix and uterus; Z79.899 Other long term (current) drug therapy; Z88.1 Allergy status to other antibiotic agents; Z88.8 Allergy status to other drugs, medicaments and biological substances; Z88.0 Allergy status to penicillin
CPT/HCPCS: 87070; 87077; 87186; 87205; 99284

== ENCOUNTER → 2018-11-23 | Outpatient (CLI) | payer BC ==
--- NOTE | 2018-11-23 17:53 | CT ---
EXAMINATION TYPE: CT ChestAbdPelvis w con DATE OF EXAM: 11/23/2018 INDICATION: f/u ovarian ca COMPARISON: 04/21/2018 CT DLP: 1862 mGycm CONTRAST: Performed with Oral Contrast and with IV Contrast, patient injected with 80 mL of Isovue 300. TECHNIQUE: Axial images at 5 mm thick sections. Reconstructed images in the coronal plane. Delayed images through the kidneys. FINDINGS: CT CHEST: Portion of the thyroid visualized is normal. There may be some pneumonitis changes within the lingula and right middle lobe. Streak opacities are within the posterior lateral bilateral lung bases. An area of pneumonitis is in the posterior left alonso ng base. Series 4 image 30. Follow-up exam CT chest in 6 months is recommended. No enlarged mediastinal or hilar adenopathy is evident. The ascending aorta diameter at the level of the main pulmonary artery is 3.3 cm. The main pulmonary artery diameter at the bifurcation is 2.[address] ABDOMEN: Liver: Normal Spleen: Normal Pancreas: Normal Adrenal glands: The adrenal glands are normal. 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 Right kidney, nearly appears normal.. No hydronephrosis is present. No cysts are present. Delayed images were obtained through the kidneys, which remain u nremarkable. Aorta: Vascular calcification is within the aorta. Inferior vena cava: Normal. CT PELVIS: Loops of bowel within the abdomen and pelvis are normal. There are loops of bowel which are incom pletely distended or lack oral contrast limiting their evaluation. Scattered diverticuli are within t he sigmoid colon without acute diverticulitis. Sigmoid surgery suture is evident. Appendix: Not identified. No suspicious inflammatory changes are evident. Urinary bladder: Normal. Genitourinary structures: Uterus and ovaries are not identified. No suspicious cysts or free fluid is evident. No suspicious omental caking is evident. Osseous structures: No suspicious lytic or sclerotic lesions. IMPRESSIONS: 1. Diverticulosis without acute diverticulitis. 2. No suspicious changes to suggest metastatic or recurrent ovarian cancer. 3. Horseshoe kidney. 4. Some areas of pneumonitis change within the bilateral lungs. These warrant follow-up follow-up CT chest in 6 months.
== END | disposition home or self-care (01) ==
LOC: RADCTMAIN 13:54
PROVIDERS: ATTEND Internal Medicine Hematology & Oncology
DX: Z08 Encounter for follow-up examination after completed treatment for malignant neoplasm (principal); K57.90 Diverticulosis of intestine, part unspecified, without perforation or abscess without bleeding; Q63.1 Lobulated, fused and horseshoe kidney; J18.9 Pneumonia, unspecified organism; Z85.43 Personal history of malignant neoplasm of ovary; Z88.0 Allergy status to penicillin; Z88.1 Allergy status to other antibiotic agents; Z88.8 Allergy status to other drugs, medicaments and biological substances
CPT/HCPCS: 71260; 74177; Q9967

== ENCOUNTER → 2019-02-18 | Outpatient (CLI) | payer BC ==
--- NOTE | 2019-02-20 09:53 | MM ---
Reason for exam: screening (asymptomatic). Last mammogram was performed 1 year ago. History: Patient is postmenopausal, has history of endometrial cancer at age 44, and has history of ovarian cancer at age 44. Benign US breast localization RT of the right breast, August 27, 2017. Benign US biopsy breast VAD RT of the right breast, August 06, 2017. Physical Findings: A clinical breast exam by your physician is recommended on an annual basis and results should be correlated with mammographic findings. MG 3D Screening Mammo W/Cad Bilateral CC and MLO view(s) were taken. Prior study comparison: February 11, 2018, bilateral MG 3d diag mammo w/cad MARGARETTE. August 27, 2017, right breast MG diagnostic mammo RT wo CAD. Nodular density upper outer quadrant left breast 7.3cm from nipple. ASSESSMENT: Incomplete: need additional imaging evaluation, BI-RAD 0 RECOMMENDATION: Special view mammogram of the left breast. If lesion persists on supplemental views, image directed ultrasound is recommended. [facility] will attempt to contact patient to return for supplemental views and ultrasound if indicated.
== END | disposition home or self-care (01) ==
LOC: RADMAMWWP 11:25
PROVIDERS: ATTEND Family Medicine
DX: Z12.31 Encounter for screening mammogram for malignant neoplasm of breast (principal)
CPT/HCPCS: 77063; 77067

== ENCOUNTER → 2019-02-22 | Outpatient (CLI) | payer BC ==
--- NOTE | 2019-02-22 16:10 | US ---
EXAMINATION TYPE: US thyroid st tissue head/neck DATE OF EXAM: 02/22/2019 COMPARISON: US 07/29/2018 CLINICAL HISTORY: 48-year-old female E04.1 goiter. Follow up to nodules TECHNIQUE: Multiple sonographic images of the thyroid gland are obtained. FINDINGS: GLAND SIZE: Right Lobe: 3.7 x 1.3 x 1.4 cm Overall Parenchyma: homogenous Left Lobe: 3.6 x 1.1 x 1.3 cm Overall Parenchyma: homogeneous Isthmus Thickness: 0.2 cm NODULES RIGHT: # of nodules measured on right: 1 1. 0.5 X 0.3 x 0.3 cm hypoechoic solid nodule at the mid pole with poorly defined margins; . This nodule is wider than tall and shows Peripheral vascularity. Prior size: 0.5 x 0.5 x 0.3 cm LEFT: # of nodules measured on left: 1. 0.6 X 0.6 x 0.6 cm hypoechoic solid peripherally calcified nodule at the lower pole with well-de fined margins; . This nodule is wider than tall and shows no intranodular vascularity. Prior size: 0.6 X 0.6 x 0.7 ISTHMUS: # of nodules measured in the isthmus: 0 Bilateral neck scanned, no evidence of lymphadenopathy. IMPRESSION: One nodule on each side, largest measuring 6 mm, unchanged from 07/29/2018.
== END | disposition home or self-care (01) ==
LOC: RADUSWWP 14:43
PROVIDERS: ATTEND Family Medicine
DX: E04.2 Nontoxic multinodular goiter (principal)
CPT/HCPCS: 76536

== ENCOUNTER → 2019-02-24 | Outpatient (CLI) | payer BC ==
--- NOTE | 2019-02-27 07:58 | MM ---
Reason for exam: additional evaluation requested from abnormal screening. Last mammogram was performed less than 1 month ago. History: Patient is postmenopausal, has history of endometrial cancer at age 44, and has history of ovarian cancer at age 44. Benign US breast localization RT of the right breast, August 27, 2017. Benign US biopsy breast VAD RT of the right breast, August 06, 2017. Took hormonal contraceptives beginning at age 18. Physical Findings: Nurse did not find any significant physical abnormalities on exam. MG 3D Work Up W/Cad LT Spot compression CC, spot compression MLO, and ML view(s) were taken of the left breast. Prior study comparison: February 18, 2019, bilateral MG 3d screening mammo w/cad. February 11, 2018, bilateral MG 3d diag mammo w/cad MARGARETTE. Improved but persistent nodularity upper outer quadrant left breast 5.5cm from nipple. These results were verbally communicated with the patient and result sheet given to the patient on 02/24/19. ASSESSMENT: Incomplete: need additional imaging evaluation, BI-RAD 0 RECOMMENDATION: Ultrasound of the left breast.
--- NOTE | 2019-02-27 07:59 | USB ---
Reason for exam: additional evaluation requested from abnormal screening. History: Patient is postmenopausal, has history of endometrial cancer at age 44, and has history of ovarian cancer at age 44. Benign US breast localization RT of the right breast, August 27, 2017. Benign US biopsy breast VAD RT of the right breast, August 06, 2017. Took hormonal contraceptives beginning at age 18. US Breast Workup Limited LT Left limited breast ultrasound including focal area of concern, retroareolar and axilla demonstrates a 0.4 x 0.3 x 0.3cm round, hypoechoic lesion at 1 o'clock. These results were verbally communicated with the patient and result sheet given to the patient on 02/24/19. ASSESSMENT: Probably benign, BI-RAD 3 RECOMMENDATION: Follow-up diagnostic mammogram and ultrasound of the left breast in 6 months.
== END ==
LOC: RADMAMWWP 14:40
PROVIDERS: ATTEND Family Medicine
DX: R92.8 Other abnormal and inconclusive findings on diagnostic imaging of breast (principal)
CPT/HCPCS: 77061; 77065

== ENCOUNTER → 2019-05-31 | Outpatient (CLI) | payer BC ==
--- NOTE | 2019-05-31 14:57 | CT ---
EXAMINATION TYPE: CT ChestAbdPelvis w con DATE OF EXAM: 05/31/2019 COMPARISON: 11/23/2018 HISTORY: Ovarian cancer. CT DLP: 1800 mGycm Automated exposure control for dose reduction was used. CONTRAST: CT scan of the chest, abdomen and pelvis is performed with Oral Contrast and with IV Contrast, patien t injected with 100 mL of Isovue 300. FINDINGS: LUNGS: Curvilinear opacity in the medial right upper lobe best seen on axial image 15 is new when com pared to prior but likely related to atelectasis/scarring. Additional linear areas of scarring/atelec tasis are seen in the bilateral lung bases with possible nodular component seen at the left costophre haily angle measuring 0.6 cm and best seen on image 45. Otherwise, the lungs are grossly clear, there i s no concerning parenchymal mass or nodule identified. There is no pleural effusion or pneumothorax seen. The tracheobronchial tree is patent. MEDIASTINUM: There are no greater than 1 cm hilar or mediastinal lymph nodes. No pericardial effusi on is seen. OTHER: No additional significant abnormality is seen. LIVER/GB: No significant abnormality is appreciated. PANCREAS: No significant abnormality is seen. SPLEEN: No significant abnormality is seen. ADRENALS: No significant abnormality is seen. 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 A few small cysts are seen in the upper pole on the right. No hydronephrosis. BOWEL: Scattered diverticuli without diverticulosis. Postsurgical changes near the sigmoid colon. No bowel obstruction. No ascites. REPRODUCTIVE ORGANS: Uterus and ovaries are not identified. LYMPH NODES: No greater than 1 cm abdominal or pelvic lymph nodes are appreciated. OSSEOUS STRUCTURES: No significant abnormality is seen. Redemonstration of left paracentral anterior abdominal wall rectus defect and soft tissue stranding. IMPRESSION: A few new areas of linear scarring/atelectasis seen in the right upper lobe and bilateral lobes with possible small nodular component in the left costophrenic angle. Findings are favored to represent be nign etiology, but attention on follow-up films are recommended. Otherwise, no evidence of recurrent or metastatic ovarian cancer.
== END | disposition home or self-care (01) ==
LOC: RADCTMAIN 11:27
PROVIDERS: ATTEND Internal Medicine Hematology & Oncology
DX: Z03.89 Encounter for observation for other suspected diseases and conditions ruled out (principal); R91.8 Other nonspecific abnormal finding of lung field; C56.1 Malignant neoplasm of right ovary
CPT/HCPCS: 71260; 74177; Q9967

== ENCOUNTER → 2019-09-29 | Outpatient (CLI) | payer BC ==
--- NOTE | 2019-09-29 09:54 | US ---
EXAMINATION TYPE: US thyroid st tissue head/neck DATE OF EXAM: 09/29/2019 COMPARISON: US 02/22/2019 and 07/29/2018 CLINICAL HISTORY: E04.1 Nontoxic single thyroid nodule. GLAND SIZE: Right Lobe: 3.6 x 1.1 x 1.1 cm Overall Parenchyma: homogenous Left Lobe: 3.7 x 1.3 x 1.3 cm Overall Parenchyma: homogeneous Isthmus Thickness: 0.2 cm NODULES RIGHT: # of nodules measured on right: 1 1. 0.5 X 0.3 x 0.4 cm hypoechoic solid nodule at the mid pole with well-defined margins; . This no dule is wider than tall and shows intranodular vascularity. Prior size: 0.5 x 0.5 x 0.3 cm LEFT: # of nodules measured on left: 1. 0.7 X 0.7 x 0.6 cm hypoechoic calcified nodule at the lower pole with well-defined margins; . T his nodule is wider than tall and shows no intranodular vascularity. Prior size: 0.6 x 0.6 x 0.6 cm 2. 0.5 X 0.4 x 0.4 cm hypoechoic solid nodule at the upper pole with well-defined margins; . This n odule is wider than tall and shows intranodular vascularity. Prior size: No previous Bilateral neck scanned, no evidence of lymphadenopathy. IMPRESSION: Bilateral subcentimeter thyroid nodules with no significant interval growth. Solitary new left thyroi d nodule is seen that is also subcentimeter.
--- NOTE | 2019-09-29 10:23 | MM ---
Reason for exam: follow-up at short interval from prior study. Last mammogram was performed 7 months ago. History: Patient is postmenopausal, has history of endometrial cancer at age 44, and has history of ovarian cancer at age 44. Benign US breast localization RT of the right breast, August 27, 2017. Benign US biopsy breast VAD RT of the right breast, August 06, 2017. Took hormonal contraceptives beginning at age 18. Physical Findings: Nurse did not find any significant physical abnormalities on exam. MG 3D Diag Mammo W/Cad LT CC and MLO view(s) were taken of the left breast. Prior study comparison: February 24, 2019, left breast MG 3d work up w/cad LT. February 18, 2019, bilateral MG 3d screening mammo w/cad. February 11, 2018, bilateral MG 3d diag mammo w/cad [facility]ARGARETTE. August 27, 2017, right breast MG diagnostic mammo RT wo CAD. August 06, 2017, right breast MG diagnostic mammo RT wo CAD. July 28, 2017, right breast MG 3d diag mammo w/cad RT. January 20, 2017, bilateral MG screening mammo w CAD. The breast tissue is heterogeneously dense. This may lower the sensitivity of mammography. Lateral asymmetry with probable superior correlate 7-8cm from nipple persists and appears similar to 2017. These results were verbally communicated with the patient and result sheet given to the patient on 09/29/19. ASSESSMENT: Incomplete: need additional imaging evaluation, BI-RAD 0 RECOMMENDATION: Ultrasound of the left breast.
--- NOTE | 2019-09-29 10:29 | USB ---
Reason for exam: additional evaluation requested from abnormal screening. History: Patient is postmenopausal, has history of endometrial cancer at age 44, and has history of ovarian cancer at age 44. Benign US breast localization RT of the right breast, August 27, 2017. Benign US biopsy breast VAD RT of the right breast, August 06, 2017. Took hormonal contraceptives beginning at age 18. US Breast Limited LT Left limited breast ultrasound including focal area of concern, retroareolar and axilla demonstrates a 4 x 3 x 3mm cystic lesion at 1 o'clock and a 6 x 2 x 3mm cystic cluster at 3 o'clock, corresponds with mammogram. These results were verbally communicated with the patient and result sheet given to the patient on 09/29/19. ASSESSMENT: Benign, BI-RAD 2 RECOMMENDATION: Return to routine screening mammogram schedule for both breasts. Back on schedule for January 2020.
== END | disposition home or self-care (01) ==
LOC: RADMAMWWP 07:24
PROVIDERS: ATTEND Family Medicine
DX: E04.2 Nontoxic multinodular goiter (principal); R92.8 Other abnormal and inconclusive findings on diagnostic imaging of breast
CPT/HCPCS: 76536; 77061; 77065

== ENCOUNTER → 2020-01-03 | Outpatient (CLI) | payer BC ==
--- NOTE | 2020-01-03 15:08 | US ---
EXAMINATION TYPE: US thyroid st tissue head/neck DATE OF EXAM: 01/03/2020 COMPARISON: Thyroid ultrasound September 29, 2019 CLINICAL HISTORY: E04.2 nontoxic multinodular goiter. 3 month f/u GLAND SIZE: Right Lobe: 3.8 x 1.3 x 1.4 cm Overall Parenchyma: homogenous Left Lobe: 3.4 x 1.4 x 1.4 cm Overall Parenchyma: homogeneous Isthmus Thickness: 0.2 cm NODULES RIGHT: # of nodules measured on right: 1 1. 0.4 X 0.3 x 0.4 cm hypoechoic solid nodule at the mid pole with well-defined margins. This nodu le is wider than tall and shows no intranodular vascularity. Prior size: 0.5 x 0.3 x 0.4 cm LEFT: # of nodules measured on left: 1 1. 0.7 X 0.6 x 0.7 cm hypoechoic solid nodule at the lower pole with well-defined margins. This no dule is wider than tall and shows no intranodular vascularity. Prior size: 0.7 x 0.7 x 0.6 cm ISTHMUS: # of nodules measured in the isthmus: 0 Bilateral neck scanned, no evidence of lymphadenopathy. Homogeneous small sized thyroid with stable bilateral subcentimeter nodules marked by technologist. IMPRESSION: As above. No new or enlarging thyroid nodules identified.
== END | disposition home or self-care (01) ==
LOC: RADUSWWP 14:29
PROVIDERS: ATTEND Family Medicine
DX: E04.2 Nontoxic multinodular goiter (principal)
CPT/HCPCS: 76536

== ENCOUNTER → 2020-04-24 | Outpatient (CLI) | payer BC ==
[2020-04-24 08:18] LABS: African American GFR (CKD) >90 (>60 ml/min/1.73 sqM); Blood Urea Nitrogen 17 mg/dL (7-17); Non-African American GFR(CKD) >90 (>60 ml/min/1.73 sqM)
--- NOTE | 2020-04-24 13:54 | CT ---
EXAMINATION TYPE: CT ChestAbdPelvis w con DATE OF EXAM: 04/24/2020 INDICATION: Ovarian cancer COMPARISON: 05/31/2019 CT DLP: 802.5 mGycm CONTRAST: Performed with Oral Contrast and with IV Contrast, patient injected with 100 mL of Isovue 300. TECHNIQUE: Axial images at 5 mm thick sections. Reconstructed images in the coronal plane. Delayed images through the kidneys. FINDINGS: CT CHEST: Portion of the thyroid visualized is normal. No suspicious lung nodules or focal infiltrates are present. No enlarged mediastinal or hilar adenopathy is evident. The ascending aorta diameter at the level of the main pulmonary artery is 3.4 cm. The main pulmonary artery diameter at the bifurcation is 2.[address] ABDOMEN: Liver: Normal Spleen: Normal Pancreas: Normal Adrenal glands: The adrenal glands are normal. Gallbladder: Normal Kidneys: Horseshoe kidney is present. No masses are evident. No hydronephrosis is present. There is a 1.1 cm cyst on the superior anterior right kidney measuring 23 Hounsfield units. Delayed images w ere obtained through the kidneys, which remain unremarkable. Aorta: Normal Inferior vena cava: Normal. CT PELVIS: No omental caking is evident. Loops of bowel within the abdomen and pelvis are normal. There are loops of bowel which are incom pletely distended or lack oral contrast limiting their evaluation. Appendix: Normal as visualized. Urinary bladder: Normal. Genitourinary structures: Uterus and ovaries are absent. No free fluid is within the pelvis. Osseous structures: No suspicious lytic or sclerotic lesions. IMPRESSIONS: 1. Partial kidney with a small cortical renal cyst on the right aspect of the kidney. 2. No suspicious changes to suggest recurrent or metastatic ovarian cancer.
== END | disposition home or self-care (01) ==
LOC: RADCTMAIN 07:42
PROVIDERS: ATTEND Internal Medicine Hematology & Oncology
DX: N28.1 Cyst of kidney, acquired (principal); C56.1 Malignant neoplasm of right ovary
CPT/HCPCS: 82565; 84520; 71260; 74177; 36415; Q9967

== ENCOUNTER → 2021-04-11 | Outpatient (CLI) | payer BC ==
--- NOTE | 2021-04-16 11:31 | MM ---
Reason for exam: screening (asymptomatic). Last mammogram was performed 1 year and 6 months ago. History: Patient is postmenopausal, has history of endometrial cancer at age 44, and has history of ovarian cancer at age 44. Benign US breast localization RT of the right breast, August 27, 2017. Benign US biopsy breast VAD RT of the right breast, August 06, 2017. Took hormonal contraceptives beginning at age 18. Physical Findings: A clinical breast exam by your physician is recommended on an annual basis and results should be correlated with mammographic findings. MG 3D Screening Mammo W/Cad Bilateral CC and MLO view(s) were taken. Prior study comparison: September 29, 2019, left breast MG 3d diag mammo w/cad LT. February 24, 2019, left breast MG 3d work up w/cad LT. The breast tissue is heterogeneously dense. This may lower the sensitivity of mammography. Right excisional biopsy clips inferior medial, stable. No significant changes when compared with prior studies. ASSESSMENT: Benign, BI-RAD 2 RECOMMENDATION: Routine screening mammogram of both breasts in 1 year.
== END | disposition home or self-care (01) ==
LOC: RADMAMWWP 14:26
PROVIDERS: ATTEND Internal Medicine Hematology & Oncology
DX: Z12.31 Encounter for screening mammogram for malignant neoplasm of breast (principal); Z78.0 Asymptomatic menopausal state
CPT/HCPCS: 77063; 77067

== ENCOUNTER → 2021-08-25 | Outpatient (CLI) | payer BC ==
--- NOTE | 2021-08-25 13:20 | CT ---
EXAMINATION TYPE: CT abdomen pelvis w con DATE OF EXAM: 08/25/2021 HISTORY: follow up ovarian cancer CT DLP: 657.8mGycm Automated Exposure Control for Dose Reduction was Utilized. CONTRAST: CT scan of the abdomen and pelvis is performed with oral and with IV Contrast, patient injected with 100 mL of Isovue 300. COMPARISON: Most recent CT April 24, 2020 and older studies FINDINGS: LUNG BASES: [id number] bibasilar linear scarring is redemonstrated. LIVER/GB: No significant abnormality is appreciated. PANCREAS: No significant abnormality is seen. SPLEEN: No significant abnormality is seen. ADRENALS: No significant abnormality is seen. KIDNEYS: Horseshoe type kidney redemonstrated. Subcentimeter lesion left kidney series 7 image 38 too small to further characterize presumed benign and stable. BOWEL: Oral contrast reaches level of the rectum. No suspicious small or large bowel dilatation. Dist al colonic diverticula are redemonstrated. Surgical changes sigmoid rectal colon pelvis axial image 6 7 again seen. UTERUS/ADNEXA: Uterus surgically absent. LYMPH NODES: No new greater than 1cm abdominal or pelvic lymph nodes are appreciated. OSSEOUS STRUCTURES: Facet arthropathy lower lumbar spine. OTHER: Vertical anterior scar in the midline of the lower abdomen into the pelvis redemonstrated. IMPRESSION: No suspicious new mass or adenopathy to suggest neoplastic recurrence.
--- NOTE | 2021-08-26 15:55 | CT ---
EXAMINATION TYPE: CT chest w con DATE OF EXAM: 08/26/2021 COMPARISON: Most recent CT April 24, 2020 and older studies HISTORY:Ovarian cancer CT DLP: 511 mGycm. Automated Exposure Control for Dose Reduction was Utilized. TECHNIQUE: CT scan of the thorax is performed following with IV Contrast, patient injected with 100 mL of Isovue 300. FINDINGS: LUNGS: Stable posterior 3 x 2 mm left upper lobe nodule axial image 11 from several prior studies. M [id number] bibasilar linear scarring and/or atelectasis is redemonstrated. There is no pleural e ffusion or pneumothorax seen. The tracheobronchial tree is patent. No new greater than 5 mm nodules or masses. MEDIASTINUM: There are no new greater than 1 cm hilar or mediastinal lymph nodes. No arterial megal y or pericardial effusion is seen. Subcentimeter left thyroid nodule lower pole level coronal image 34 unchanged from prior. OTHER: Surgical clips medially in the right breast axial image 29 are redemonstrated. Stable asymmetr y presumed asymmetric tissue lateral right breast axial image 26 from several prior studies. Oral con trast from CT study one day earlier noted in the visualized bowel loops. IMPRESSION: No suspicious new or enlarging nodules to suggest metastatic disease.
== END | disposition home or self-care (01) ==
LOC: RADCTMAIN 08:38
PROVIDERS: ATTEND Internal Medicine Hematology & Oncology
DX: Z08 Encounter for follow-up examination after completed treatment for malignant neoplasm (principal); Z85.43 Personal history of malignant neoplasm of ovary; Z90.710 Acquired absence of both cervix and uterus
CPT/HCPCS: 74177; Q9967; 71260

== ENCOUNTER → 2022-04-17 | Outpatient (CLI) | payer BC ==
--- NOTE | 2022-04-21 18:05 | MM ---
Reason for Exam: Screening (asymptomatic). Last mammogram was performed 1 year(s) and 1 month(s) ago. Patient History: Menarche at age 11. First Full-Term at age 20. Left ovary removed at age 44. Right ovary removed at age 44. Hysterectomy at age 44. Postmenopausal. Patient has history of breast feeding. Endometrial cancer, age 44. Ovarian cancer, age 44. Hormonal Contraceptives, from age 18 until age 42. 08/27/2017, Benign Core Biopsy on the right side. 08/06/2017, Benign Core Biopsy on the right side. Risk Values: Jillian 5 year model risk: 1.5%. NCI Lifetime model risk: 11.3%. Prior Study Comparison: 02/11/2018 Bilateral Diagnostic Mammogram, [facility]. 02/24/2019 Left Diagnostic Mammogram, [facility]. 09/29/2019 Left Diagnostic Mammogram, [facility]. 04/11/2021 Bilateral Screening Mammogram, [facility]. Tissue Density: The breast tissue is heterogeneously dense. This may lower the sensitivity of mammography. Findings: Analyzed By CAD. Nodularity upper quadrant left breast. Unchanged nodular asymmetry medial left CT view. Most excisional biopsy changes right breast. Areas of asymmetric density in the right breast are unchanged. No significant change from prior exams. Overall Assessment: Benign, BI-RAD 2 Management: Screening Mammogram of both breasts in 1 year. 1. Patient should continue monthly self breast exams. 2. A clinical breast exam by your physician is recommended on an annual. 3. This exam should not preclude additional follow-up of suspicious palpable abnormalities. Electronically signed and approved by: Saray Espinal M.D. Radiologist
== END | disposition home or self-care (01) ==
LOC: RADMAMWWP 06:51
PROVIDERS: ATTEND Internal Medicine Hematology & Oncology
DX: Z12.31 Encounter for screening mammogram for malignant neoplasm of breast (principal); Z78.0 Asymptomatic menopausal state
CPT/HCPCS: 77063; 77067

== ENCOUNTER → 2022-07-08 | Outpatient (CLI) | payer BC ==
--- NOTE | 2022-07-08 15:21 | US ---
EXAMINATION TYPE: US thyroid st tissue head/neck DATE OF EXAM: 07/08/2022 COMPARISON: NONE CLINICAL HISTORY: E04.1 nontoxic single thyroid nodule. thyroid nodule GLAND SIZE: Right Lobe: 4.1 x 1.3 x 1.8 cm Overall Parenchyma: homogenous Left Lobe: 3.7 x 1.2 x 1.7 cm Overall Parenchyma: homogeneous Isthmus Thickness: 0.3 cm NODULES RIGHT: # of nodules measured on right: 1 1. 0.5 X 0.3 x 0.5 cm, mid, solid or almost completely solid, hypoechoic nodule, which is wider michelle n tall, with smooth margins, without echogenic foci. Prior size: 0.4 x 0.3 x 0.4 cm LEFT: # of nodules measured on left: 1 1. 0.7 X 0.6 x 0.7 cm, lower , solid or almost completely solid, hypoechoic nodule, which is wider than tall, with smooth margins, with echogenic foci. Prior size: 0.7 x 0.6 x 0.7 cm ISTHMUS: # of nodules measured in the isthmus: 0 Bilateral neck scanned, no evidence of abnormal lymphadenopathy. IMPRESSION: Stable nonspecific thyroid nodularity.
== END | disposition home or self-care (01) ==
LOC: RADUSWWP 14:36
PROVIDERS: ATTEND Family Medicine
DX: E04.2 Nontoxic multinodular goiter (principal)
CPT/HCPCS: 76536

== ENCOUNTER → 2022-08-26 | Outpatient (CLI) | payer BC ==
[2022-08-26 07:17] LABS: African American GFR (CKD) >90 (>60 ml/min/1.73 sqM); Blood Urea Nitrogen 15 mg/dL (7-17); Non-African American GFR(CKD) >90 (>60 ml/min/1.73 sqM)
--- NOTE | 2022-08-26 09:03 | CT ---
EXAMINATION TYPE: CT ChestAbdPelvis w con DATE OF EXAM: 08/26/2022 COMPARISON: 08/26/2021 HISTORY: Ovarian Cancer CT DLP: 1727 mGycm CONTRAST: CT scan of the chest, abdomen and pelvis is performed with Oral Contrast and with IV Contrast, patien t injected with 70 ml mL of Isovue 300. CT Chest: LUNGS: The lungs are clear and free of infiltrate or atelectasis. Stable left basilar parenchymal sc arring. No pulmonary nodule or mass is detected. No pleural effusion or CT evidence of interstitial lung disease. MEDIASTINUM: Thoracic aorta is of normal caliber. The heart is not enlarged. No evidence for media stinal mass or adenopathy. HILAR STRUCTURES: No evidence for mass. No hilar adenopathy is appreciated. OTHER: No significant abnormality. CONTRAST CT ABDOMEN AND PELVIS FINDINGS: LIVER/GB: No calcified gallstones. No space occupying hepatic lesion. Biliary tree is of normal ca liber. PANCREAS: No inflammation. No distinct mass. SPLEEN: No splenic enlargement. No lesion seen. ADRENALS: No nodule. No thickening. KIDNEYS/BLADDER: No hydronephrosis. No nephrolithiasis. No disctinct renal mass. BOWEL: Nonvisualization of the appendix. Normal bowel caliber. No inflammation. GENITAL ORGANS: Hysterectomy and bilateral oophorectomy change. No evidence for recurrent or residual mass. LYMPH NODES: No greater than 1cm abdominal or pelvic lymph nodes are appreciated. AORTA: No significant abnormality. OSSEOUS STRUCTURES: No significant abnormality is seen. OTHER: No significant additional abnormality is seen. IMPRESSION: 1. Stable evaluation of the chest, abdomen and pelvis without evidence for metastatic disease or recu rrent disease.
== END | disposition home or self-care (01) ==
LOC: RADCTMAIN 05:59
PROVIDERS: ATTEND Internal Medicine Hematology & Oncology
DX: C56.1 Malignant neoplasm of right ovary (principal)
CPT/HCPCS: 82565; 84520; 71260; 74177; 36415; Q9967

== ENCOUNTER → 2023-05-18 | Outpatient (CLI) | payer BC ==
--- NOTE | 2023-05-18 11:39 | MM ---
Reason for Exam: Screening (asymptomatic). Last mammogram was performed 1 year(s) and 1 month(s) ago. Patient History: Menarche at age 11. First Full-Term at age 20. Left ovary removed at age 44. Right ovary removed at age 44. Hysterectomy at age 44. Postmenopausal. Patient has history of breast feeding. Endometrial cancer, age 44. Ovarian cancer, age 44. Hormonal Contraceptives, from age 18 until age 42. 08/27/2017, Benign Core Biopsy on the right side. 08/06/2017, Benign Core Biopsy on the right side. Risk Values: Jillian 5 year model risk: 1.5%. NCI Lifetime model risk: 11.1%. Prior Study Comparison: 09/29/2019 Left Diagnostic Mammogram, [facility]. 04/11/2021 Bilateral Screening Mammogram, [facility]. 04/17/2022 Bilateral MG 3D screening mammo w/cad, [facility]. Tissue Density: The breast tissue is heterogeneously dense. This may lower the sensitivity of mammography. Findings: Analyzed By CAD. There is no suspicious group of microcalcifications within either breast. No new suspicious mass within the left breast. Stable chronic nodularity within the left breast. Post excisional biopsy changes in the right breast. Asymmetry demonstrated only on the right breast CC view at middle depth centrally. Overall Assessment: Incomplete: need additional imaging evaluation, BI-RAD 0 Management: Diagnostic Mammogram of the right breast. A clinical breast exam by your physician is recommended on an annual basis and results should be correlated with mammographic findings. [facility] will attempt to contact patient to return for supplemental views and ultrasound if indicated. Note on Jillian scores and lifetime risk: 1. A Jillian score greater than 3% is considered moderate risk. If this is the case, consider specialist referral to assess eligibility for a risk reducing agent. If overall lifetime risk for the development of breast cancer is 20% or higher, the patient may qualify for future screening with alternating mammogram and breast MRI. Electronically signed and approved by: Derek Meyer D.O.
== END | disposition home or self-care (01) ==
LOC: RADMAMWWP 06:41
PROVIDERS: ATTEND Internal Medicine Hematology & Oncology
DX: Z12.31 Encounter for screening mammogram for malignant neoplasm of breast (principal); C56.1 Malignant neoplasm of right ovary; F41.8 Other specified anxiety disorders; I10 Essential (primary) hypertension; F32.0 Major depressive disorder, single episode, mild; Z78.0 Asymptomatic menopausal state
CPT/HCPCS: 77063; 77067

== ENCOUNTER → 2023-05-20 | Outpatient (CLI) | payer BC ==
--- NOTE | 2023-05-20 07:48 | MM ---
Reason for Exam: Additional evaluation requested from abnormal screening. Last screening mammogram was performed less than 1 month ago. Patient History: Menarche at age 11. First Full-Term at age 20. Left ovary removed at age 44. Right ovary removed at age 44. Hysterectomy at age 44. Postmenopausal. Patient has history of breast feeding. Endometrial cancer, age 44. Ovarian cancer, age 44. Hormonal Contraceptives, from age 18 until age 42. 08/27/2017, Benign Core Biopsy on the right side. 08/06/2017, Benign Core Biopsy on the right side. Risk Values: Jillian 5 year model risk: 1.5%. NCI Lifetime model risk: 11.1%. Prior Study Comparison: 02/11/2018 Bilateral Diagnostic Mammogram, [facility]. 02/18/2019 Bilateral Screening Mammogram, [facility]. 02/24/2019 Left Diagnostic Mammogram, [facility]. 02/24/2019 Left Diagnostic Ultrasound, [facility]. 09/29/2019 Left Diagnostic Mammogram, [facility]. 09/29/2019 Left Diagnostic Ultrasound, [facility]. 04/11/2021 Bilateral Screening Mammogram, [facility]. 04/17/2022 Bilateral MG 3D screening mammo w/cad, [facility]. 05/18/2023 Bilateral MG 3D screening mammo w/cad, [facility]. Tissue Density: Right: The breast tissue is heterogeneously dense. This may lower the sensitivity of mammography. Findings: Analyzed By CAD. The questionable central asymmetric density in the middle depth on the CC view appears to become less distinct on the spot image but tomographic views suggest possible isodense to low density lobulated area measuring 1.1 cm. This may represent a prominent island of fibroglandular tissue. Further ultrasound evaluation recommended. Overall Assessment: Incomplete: need additional imaging evaluation, BI-RAD 0 Management: Diagnostic Breast Ultrasound of the right breast. Electronically signed and approved by: Saray Espinal M.D. Radiologist
--- NOTE | 2023-05-20 08:16 | USB ---
Reason for Exam: Additional evaluation requested from abnormal screening. Patient History: Menarche at age 11. First Full-Term at age 20. Left ovary removed at age 44. Right ovary removed at age 44. Hysterectomy at age 44. Postmenopausal. Patient has history of breast feeding. Endometrial cancer, age 44. Ovarian cancer, age 44. Hormonal Contraceptives, from age 18 until age 42. 08/27/2017, Benign Core Biopsy on the right side. 08/06/2017, Benign Core Biopsy on the right side. Risk Values: Jillian 5 year model risk: 1.5%. NCI Lifetime model risk: 11.1%. Technique: Method: Targeted. Prior Study Comparison: 04/11/2021 Bilateral Screening Mammogram, [facility]. 04/17/2022 Bilateral MG 3D screening mammo w/cad, [facility]. 05/18/2023 Bilateral MG 3D screening mammo w/cad, [facility]. Findings: The periareolar of the right breast, the axilla of the right breast and the retroareolar of the right breast were scanned. Targeted ultrasound subareolar and periareolar right breast including the subareolar region and axilla. Scattered small benign cysts are present ranging in size from 3 mm to 7 mm. No other solid or cystic lesion or axillary lymphadenopathy. No duct ectasia.. Overall Assessment: Probably benign, BI-RAD 3 Management: Diagnostic Mammogram of the right breast in 6 months. A clinical breast exam by your physician is recommended on an annual basis and results should be correlated with mammographic findings. This exam should not preclude additional follow-up of suspicious palpable abnormalities. Results were given to the patient verbally at the time of exam. Electronically signed and approved by: Saray Espinal M.D. Radiologist
== END | disposition home or self-care (01) ==
LOC: RADMAMWWP 07:18
PROVIDERS: ATTEND Internal Medicine Hematology & Oncology
DX: R92.8 Other abnormal and inconclusive findings on diagnostic imaging of breast (principal); Z78.0 Asymptomatic menopausal state
CPT/HCPCS: 77061; 77065

== ENCOUNTER → 2023-11-22 | Outpatient (CLI) | payer BC ==
--- NOTE | 2023-11-22 08:40 | MM ---
Reason for Exam: Additional evaluation requested from abnormal screening. Last screening mammogram was performed 6 month(s) ago. Patient History: Menarche at age 11. First Full-Term at age 20. Left ovary removed at age 44. Right ovary removed at age 44. Hysterectomy at age 44. Postmenopausal. Patient has history of breast feeding. Endometrial cancer, age 44. Ovarian cancer, age 44. Hormonal Contraceptives, from age 18 until age 42. 08/27/2017, Benign Core Biopsy on the right side. 08/06/2017, Benign Core Biopsy on the right side. Risk Values: Jillian 5 year model risk: 1.6%. NCI Lifetime model risk: 10.9%. Prior Study Comparison: 08/27/2017 Right Diagnostic Mammogram, [facility]. 02/11/2018 Bilateral Diagnostic Mammogram, [facility]. 02/18/2019 Bilateral Screening Mammogram, [facility]. 02/24/2019 Left Diagnostic Mammogram, [facility]. 09/29/2019 Left Diagnostic Mammogram, [facility]. 04/11/2021 Bilateral Screening Mammogram, [facility]. 04/17/2022 Bilateral MG 3D screening mammo w/cad, [facility]. 05/18/2023 Bilateral MG 3D screening mammo w/cad, [facility]. 05/20/2023 Right MG 3D work up w/cad RT, [facility]. Tissue Density: Right: There are scattered fibroglandular densities. Findings: Analyzed By CAD. Right breast surgical clips. No new suspicious masses, calcifications or distortions. Overall Assessment: Benign, BI-RAD 2 Management: Screening Mammogram of both breasts in 1 year. Results were given to the patient verbally at the time of exam. Patient should continue monthly self-breast exams. A clinical breast exam by your physician is recommended on an annual basis. This exam should not preclude additional follow-up of suspicious palpable abnormalities. Note on Jillian scores and lifetime risk: 1. A Jillian score greater than 3% is considered moderate risk. If this is the case, consider specialist referral to assess eligibility for a risk reducing agent. 2. If overall lifetime risk for the development of breast cancer is 20% or higher, the patient may qualify for future screening with alternating mammogram and breast MRI. Electronically signed and approved by: Ricardo Mckinley DO
== END | disposition home or self-care (01) ==
LOC: RADMAMWWP 08:14
PROVIDERS: ATTEND Internal Medicine Hematology & Oncology
DX: C56.1 Malignant neoplasm of right ovary (principal); F41.8 Other specified anxiety disorders; I10 Essential (primary) hypertension; F32.0 Major depressive disorder, single episode, mild; R92.8 Other abnormal and inconclusive findings on diagnostic imaging of breast; Z78.0 Asymptomatic menopausal state; Z71.3 Dietary counseling and surveillance
CPT/HCPCS: 77061; 77065

== ENCOUNTER 2024-08-22 16:02 | Inpatient (IN) | payer BC ==
--- NOTE | 2024-08-22 16:39 | ED ---
General Adult HPI - General Chief complaint: Abdominal Pain Stated complaint: LRQ pain Time Seen by Provider: 08/22/24 16:22 Source: patient, RN notes reviewed Mode of arrival: ambulatory Limitations: no limitations - History of Present Illness Initial comments: 53-year-old female with past medical history of tachycardia, ovarian cancer presents to the emergency department for evaluation of right-sided abdominal pain. Patient states that this started 3 days ago. She states it is mostly in her mid right abdomen. She reports that started across her abdomen but has localized to the right side now. She states that the pain is worse with movement. She admits to nausea, anorexia. States that she has had chills and sweats but has not taken her temperature at home. Prior abdominal surgeries include proctosigmoidectomy and hysterectomy and oophorectomy. - Related Data Home Medications Medication Instructions Recorded Confirmed LORazepam [Ativan] 0.5 mg PO DAILY PRN 04/21/18 08/22/24 Sertraline [Zoloft] 25 mg PO DAILY 08/22/24 08/22/24 Allergies Allergy/AdvReac Type Severity Reaction Status Date / Time erythromycin base Allergy Rash/Hives Verified 08/22/24 19:08 [Erythromycin Base] paclitaxel [From Taxol] Allergy Anaphylaxis Verified 08/22/24 19:08 Penicillins Allergy Rash/Hives Verified 08/22/24 19:08 tamoxifen Allergy Anaphylaxis Verified 08/22/24 19:08 Review of Systems ROS Statement: Those systems with pertinent positive or pertinent negative responses have been documented in the HPI. ROS Other: All systems not noted in ROS Statement are negative. Past Medical History Past Medical History: GERD/Reflux, Hyperlipidemia, Hypertension, Musculoskeletal Disorder, Pneumonia, Thyroid Disorder Additional Past Medical History / Comment(s): Ovarian Cancer. TACHYCARDIA, hx migraines, pneumonia 1999, diverticulitis caused rupture 04/21/18, thyroid nodules, hx anemia, born with one kidney. History of Any Multi-Drug Resistant Organisms: MRSA Date of last positivie culture/infection: 01/2018 MDRO Source:: left shoulder Past Surgical History: Appendectomy, Bowel Resection, Breast Surgery, Hysterectomy, Orthopedic Surgery Additional Past Surgical History / Comment(s): LT shoulder Rotator cuff; RT BREAST biopsy, ANAL SX AT , bowel resection with colostomy 04/2018 Past Anesthesia/Blood Transfusion Reactions: Previous Problems w/ Anesthesia, Motion Sickness, Postoperative Nausea & Vomiting (PONV) Additional Past Anesthesia/Blood Transfusion Reaction / Comment(s): STATES SEVERE NAUSEA LASTED FOR ONE MONTH POST HYSTERECTOMY and bowel resection. DIFFICULTY WAKING UP AFTER SURGERY PER PT. Past Psychological History: Anxiety, Depression Smoking Status: Never smoker Past Alcohol Use History: None Reported Past Drug Use History: None Reported - Past Family History Mother Family Medical History: Cancer Additional Family Medical History / Comment(s): THYROID Father Additional Family Medical History / Comment(s): Father from bowel blockage at the age of 69yrs. General Exam Limitations: no limitations General appearance: alert, in no apparent distress Head exam: Present: atraumatic, normocephalic, normal inspection Eye exam: Present: normal appearance, PERRL, EOMI. Absent: scleral icterus, c onjunctival injection, periorbital swelling ENT exam: Present: mucous membranes dry Neck exam: Present: normal inspection. Absent: tenderness, meningismus, lymphadenopathy Respiratory exam: Present: normal lung sounds bilaterally. Absent: respiratory distress, wheezes, rales, rhonchi, stridor Cardiovascular Exam: Present: regular rate, normal rhythm, normal heart sounds. Absent: systolic murmur, diastolic murmur, rubs, gallop, clicks GI/Abdominal exam: Present: soft, tenderness (Right mid abdomen), normal bowel sounds. Absent: distended, guarding, rebound, rigid Extremities exam: Present: normal inspection, full ROM, normal capillary refill. Absent: tenderness, pedal edema, joint swelling, calf tenderness Neurological exam: Present: alert, oriented X3 Psychiatric exam: Present: normal affect, normal mood Skin exam: Present: warm, dry, intact, normal color. Absent: rash Course Vital Signs 08/22/24 08/22/24 08/22/24 16:16 20:55 21:23 Temperature 98.5 F Pulse Rate 109 H 95 78 Pulse Rate [ Pulse Oximetery ] Respiratory 20 16 16 Rate Blood Pressure 139/92 144/86 127/78 Blood Pressure [Left Arm] O2 Sat by Pulse 94 L 97 98 Oximetry 08/22/24 22:04 Temperature 100.0 F H Pulse Rate Pulse Rate [ 98 Pulse Oximetery ] Respiratory 17 Rate Blood Pressure Blood Pressure 142/81 [Left Arm] O2 Sat by Pulse 91 L Oximetry Medical Decision Making - Medical Decision Making Was pt. sent in by a medical professional or institution (EDWIN Hay, MODELING AGENCY MANAGER, urgent care, hospital, or fdc...) When possible be specific @ -No Did you speak to anyone other than the patient for history (EMS, parent, family, police, friend...)? What history was obtained from this source @ -No Did you review nursing and triage notes (agree or disagree)? Why? @ -I reviewed and agree with nursing and triage notes Were old charts reviewed (outside hosp., previous admission, EMS record, old EKG, old radiological studies, urgent care reports/EKG's, fdc records)? Report findings @ -No old charts were reviewed Differential Diagnosis (chest pain, altered mental status, abdominal pain women, abdominal pain men, vaginal bleeding, weakness, fever, dyspnea, syncope, headache, dizziness, GI bleed, back pain, seizure, CVA, palpatations, mental health, musculoskeletal)? @ -Differential Abdominal Pain Women: Appendicitis, Cholecystitis, diverticulosis, ischemic bowel, pancreatitis, hepatitis, UTI, gastroenteritis, AAA, incarcerated hernia, bowel obstruction, constipation, inflammatory bowel, hepatitis, peptic ulcer disease, splenic infarction, perforated viscus, vulvitis, ovarian torsion, PID, kidney stone, placenta abruption, this is not meant to be an all-inclusive list EKG interpreted by me (3pts min.). @ -EKG at 1713 shows sinus rhythm rate 96 OH 149, QRS 102, QT/QTc 160502 X-rays interpreted by me (1pt min.). @ -None done CT interpreted by me (1pt min.). @ -CT abdomen pelvis obtained reveals findings concerning for acute cholecystitis U/S interpreted by me (1pt. min.). @ -None done What testing was considered but not performed or refused? (CT, X-rays, U/S, labs)? Why? @ -None What meds were considered but not given or refused? Why? @ -None Did you discuss the management of the patient with other professionals (professionals i.e. EDWIN Hay, MODELING AGENCY MANAGER, lab, RT, psych nurse, manager social media, neck band setter, teacher, classification officer, case maker)? Give summary @ -Management discussed with Dr. Bello who is accepting of the admission with medical consultation Was smoking cessation discussed for >3mins.? @ -No Was critical care preformed (if so, how long)? @ -No Were there social determinants of health that impacted care today? How? (Homelessness, low income, unemployed, alcoholism, drug addiction, transportation, low edu. Level, literacy, decrease access to med. care, half-way, re hab)? @ -No Was there de-escalation of care discussed even if they declined (Discuss DNR or withdrawal of care, Hospice)? DNR status @ -No What co-morbidities impacted this encounter? (DM, HTN, Smoking, COPD, CAD, Cancer, CVA, ARF, Chemo, Hep., AIDS, mental health diagnosis, sleep apnea, morbid obesity)? @ -None Was patient admitted / discharged? Hospital course, mention meds given and route, prescriptions, significant lab abnormalities, going to OR and other pertinent info. @ -Admitted. Patient presented to the emergency department for evaluation of right-sided abdominal pain x 4 days. Laboratory studies obtained significant for leukocytosis with a white count of13.1, AST 57, ALT 51, normal bilirubin at 1.2; UA shows 2+ protein, moderate blood, small leukocyte esterase. Patient und erwent CT abdomen pelvis revealing findings concerning for acute cholecystitis. Patient was provided IV fluids, analgesia, antiemetics in the emergency department. Patient was provided additional dose of Cipro and Flagyl along with IV fluids. Surgery was consulted, patient will be admitted to Dr. Bello with medical consultation. Patient made NPO. She is understanding agreeable plan. Patient stable at time of discharge. Case discussed with Dr. Chavarria Undiagnosed new problem with uncertain prognosis? @ -No Drug Therapy requiring intensive monitoring for toxicity (Heparin, Nitro, Insulin, Cardizem)? @ -No Were any procedures done? @ -No Diagnosis/symptom? @ -Acute cholecystitis Acute, or Chronic, or Acute on Chronic? @ -Acute Uncomplicated (without systemic symptoms) or Complicated (systemic symptoms)? @ -Complicated Side effects of treatment? @ -No Exacerbation, Progression, or Severe Exacerbation? @ -No Poses a threat to life or bodily function? How? (Chest pain, USA, NC, pneumonia, PE, COPD, DKA, ARF, appy, cholecystitis, CVA, Diverticulitis, Homicidal, Suicidal, threat to staff... and all critical care pts) @ -No - Lab Data Result diagrams: 08/22/24 16:53 08/22/24 16:53 Lab Results 08/22/24 08/22/24 08/22/24 Range/Units 16:53 16:53 16:53 WBC 13.1 H (3.8-10.6) k/uL RBC 5.38 (3.80-5.40) m/uL Hgb 14.9 (11.4-16.0) gm/dL Hct 45.7 (34.0-46.0) % MCV 84.9 (80.0-100.0) fL MCH 27.6 (25.0-35.0) pg MCHC 32.6 (31.0-37.0) g/dL RDW 13.4 (11.5-15.5) % Plt Count 257 (150-450) k/uL MPV 6.5 Neutrophils % 84 % Lymphocytes % 9 % Monocytes % 6 % Eosinophils % 0 % Basophils % 0 % Neutrophils # 11.0 H (1.3-7.7) k/uL Lymphocytes # 1.1 (1.0-4.8) k/uL Monocytes # 0.8 (0-1.0) k/uL Eosinophils # 0.0 (0-0.7) k/uL Basophils # 0.0 (0-0.2) k/uL Sodium 139 (137-145) mmol/L Potassium 3.6 (3.5-5.1) mmol/L Chloride 106 (98-107) mmol/L Carbon Dioxide 21 L (22-30) mmol/L Anion Gap 12 mmol/L BUN 22 H (7-17) mg/dL Creatinine 0.77 (0.52-1.04) mg/dL Est GFR (CKD-EPI)AfAm >90 (>60 ml/min/1.73 sqM) Est GFR (CKD-EPI)NonAf 87 (>60 ml/min/1.73 sqM) Glucose 136 H (74-99) mg/dL Plasma Lactic Acid Itz 1.5 (0.7-2.0) mmol/L Calcium 9.8 (8.4-10.2) mg/dL Total Bilirubin 1.2 (0.2-1.3) mg/dL AST 57 H (14-36) U/L ALT 51 H (4-34) U/L Alkaline Phosphatase 79 (38-126) U/L Total Protein 7.8 (6.3-8.2) g/dL Albumin 4.8 (3.5-5.0) g/dL Amylase 48 (30-110) U/L Lipase 61 (23-300) U/L Urine Color Urine Appearance (Clear) Urine pH (5.0-8.0) Ur Specific [place] (1.001-1.035) Urine Protein (Negative) Urine Glucose (UA) (Negative) Urine Ketones (Negative) Urine Blood (Negative) Urine Nitrite (Negative) Urine Bilirubin (Negative) Urine Urobilinogen (<2.0) mg/dL Ur Leukocyte Esterase (Negative) Urine RBC (0-5) /hpf Urine WBC (0-5) /hpf Ur Squamous Epith Cells (0-4) /hpf Urine Bacteria (None) /hpf Urine Mucus (None) /hpf 08/22/24 Range/Units 17:19 WBC (3.8-10.6) k/uL RBC (3.80-5.40) m/uL Hgb (11.4-16.0) gm/dL Hct (34.0-46.0) % MCV (80.0-100.0) fL MCH (25.0-35.0) pg MCHC (31.0-37.0) g/dL RDW (11.5-15.5) % Plt Count (150-450) k/uL MPV Neutrophils % % Lymphocytes % % Monocytes % % Eosinophils % % Basophils % % Neutrophils # (1.3-7.7) k/uL Lymphocytes # (1.0-4.8) k/uL Monocytes # (0-1.0) k/uL Eosinophils # (0-0.7) k/uL Basophils # (0-0.2) k/uL Sodium (137-145) mmol/L Potassium (3.5-5.1) mmol/L Chloride (98-107) mmol/L Carbon Dioxide (22-30) mmol/L Anion Gap mmol/L BUN (7-17) mg/dL Creatinine (0.52-1.04) mg/dL Est GFR (CKD-EPI)AfAm (>60 ml/min/1.73 sqM) Est GFR (CKD-EPI)NonAf (>60 ml/min/1.73 sqM) Glucose (74-99) mg/dL Plasma Lactic Acid Itz (0.7-2.0) mmol/L Calcium (8.4-10.2) mg/dL Total Bilirubin (0.2-1.3) mg/dL AST (14-36) U/L ALT (4-34) U/L Alkaline Phosphatase (38-126) U/L Total Protein (6.3-8.2) g/dL Albumin (3.5-5.0) g/dL Amylase (30-110) U/L Lipase (23-300) U/L Urine Color Yellow Urine Appearance Cloudy H (Clear) Urine pH 5.5 (5.0-8.0) Ur Specific [place] 1.037 H (1.001-1.035) Urine Protein 2+ H (Negative) Urine Glucose (UA) Trace H (Negative) Urine Ketones Negative (Negative) Urine Blood Moderate H (Negative) Urine Nitrite Negative (Negative) Urine Bilirubin Negative (Negative) Urine Urobilinogen <2.0 (<2.0) mg/dL Ur Leukocyte Esterase Small H (Negative) Urine RBC 9 H (0-5) /hpf Urine WBC 3 (0-5) /hpf Ur Squamous Epith Cells 4 (0-4) /hpf Urine Bacteria Rare H (None) /hpf Urine Mucus Few H (None) /hpf Disposition Clinical Impression: Acute cholecystitis Disposition: ADMITTED IP TO THIS HOSP Condition: Stable Is patient prescribed a controlled substance at d/c from ED?: No
[2024-08-22] MEDS: HYDROmorphone 0.5 MG/0.5 ML SYRINGE IVP STA ×2 (16:54→20:42)
[2024-08-22] MEDS: SODIUM CHLORIDE 0.9% 1,000 ML IV STA (16:55)
[2024-08-22] MEDS: ONDANSETRON 4 MG/2 ML VIAL IVP STA (16:55)
[2024-08-22 17:29] LABS: Basophils % (A) 0 %; Eosinophils % (A) 0 %; HCT 45.7 % (34.0-46.0); HGB 14.9 gm/dL (11.4-16.0); Lymphocytes # (A) 1.1 k/uL (1.0-4.8); Lymphocytes % (A) 9 %; MCH 27.6 pg (25.0-35.0); MCHC 32.6 g/dL (31.0-37.0); MCV 84.9 fL (80.0-100.0); Mean Platelet Volume 6.5; Monocytes # (A) 0.8 k/uL (0-1.0); Monocytes % (A) 6 %; Neutrophils % (A) 84 %; Platelet Count 257 k/uL (150-450); RBC 5.38 m/uL (3.80-5.40); RDW 13.4 % (11.5-15.5); WBC 13.1 k/uL (3.8-10.6)
[2024-08-22 17:33] LABS: ALT 51 U/L (4-34); AST 57 U/L (14-36); African American GFR (CKD) >90 (>60 ml/min/1.73 sqM); Albumin 4.8 g/dL (3.5-5.0); Alkaline Phosphatase 79 U/L (38-126); Amylase 48 U/L (30-110); Anion Gap 12 mmol/L; Blood Urea Nitrogen 22 mg/dL (7-17); Calcium 9.8 mg/dL (8.4-10.2); Carbon Dioxide 21 mmol/L (22-30); Chloride 106 mmol/L (98-107); Glucose 136 mg/dL (74-99); Lipase 61 U/L (23-300); Non-African American GFR(CKD) 87 (>60 ml/min/1.73 sqM); Potassium 3.6 mmol/L (3.5-5.1); Sodium 139 mmol/L (137-145); Total Bilirubin 1.2 mg/dL (0.2-1.3); Total Protein 7.8 g/dL (6.3-8.2)
[2024-08-22 18:32] LABS: Appearance,Urine Cloudy (Clear); Bacteria,Urine Rare /hpf; Bilirubin,Urine Negative (Negative); Blood,Urine Moderate (Negative); Color,Urine Yellow; Glucose,Urine (UA) Trace (Negative); Ketones,Urine Negative (Negative); Leukocyte Esterase,Urine Small (Negative); Mucus,Urine Few /hpf; Nitrite,Urine Negative (Negative); PH, Urine 5.5 (5.0-8.0); Protein,Urine 2+ (Negative); RBC,Urine 9 /hpf (0-5); Specific Gravity,Urine 1.037 (1.001-1.035); Squamous Epithelial Cell,Urine 4 /hpf (0-4); Urobilinogen,Urine <2.0 mg/dL (<2.0); WBC,Urine 3 /hpf (0-5)
--- NOTE | 2024-08-22 19:31 | CT ---
EXAMINATION TYPE: CT abdomen pelvis w con DATE OF EXAM: 08/22/2024 COMPARISON: 08/26/2022 INDICATION: RUQ abdominal pain. DLP: 900.2 mGycm, Automated exposure control for dose reduction was used. CONTRAST: 100 ml mL of Isovue 300. Study performed without Oral Contrast TECHNIQUE: Axial images were obtained from above the diaphragm to the pubic rami in the axial plane a t 5 mm thick sections. Reconstructed images are reviewed on the computer in the coronal plane. FINDINGS: Limited CT sections are obtained the lung bases. Patchy infiltrates at the bilateral lung bases. Cor relate for pneumonia atelectasis.. CT ABDOMEN: Liver: Some mild fatty infiltration liver may be present. Spleen: Normal Pancreas: Normal Adrenal glands: The adrenal glands are normal. Gallbladder: Gallbladder wall appears somewhat prominent. Some minimal. Cholecystic fluid is present. Inflammatory changes are adjacent. Correlate for acute cholecystitis. Consider ultrasound. Some inf lammatory change within the adjacent colon may be present. Kidneys: No masses are evident. No hydronephrosis is present. No cysts are present. There is malro tation of the left kidney. There appears to be partial fusion across the midline. Aorta: Normal Inferior vena cava: Normal. CT PELVIS: The study is without oral contrast limits evaluation nondilated fluid-filled small bowel loops within the lower pelvis. Some scattered densities within the colon may be related to ingested material. Appendix: Not identified. No dilated tubular structure or inflammatory changes evident. Urinary bladder: Normal. Genitourinary structures: Uterus and ovaries are not identified. Osseous structures: No suspicious lytic or sclerotic lesions. IMPRESSION: 1. Clinical consideration for acute cholecystitis. If additional confirmation would be of benefit, u ltrasound could be performed. 2. Horseshoe kidney. 3. Mild fatty infiltration liver. 4. Patchy lung infiltrates. Correlate for atelectasis or pneumonia. Consider atypical pneumonia. 5. There may be some mild inflammatory changes within the colon adjacent to the suspected acute franci cystitis. [facility], , 08/22/2024 7:29 PM
[2024-08-22] MEDS ORDERED: PROCHLORPERAZINE 5 MG TAB PO PRN (20:12)
[2024-08-22] MEDS ORDERED: NALOXONE 0.4 MG/ML 1 ML VIAL IV PRN (20:12)
[2024-08-22] MEDS ORDERED: HYDROmorphone 1 MG/ML 1 ML SYRINGE IVP PRN (20:12)
[2024-08-22] MEDS: METOCLOPRAMIDE 5 MG/ML 2 ML VIAL IVP STA (20:43)
[2024-08-22] MEDS: SODIUM CHLORIDE 0.9% 1,000 ML IV ONE (20:43)
[2024-08-22] MEDS: CIPROFLOXACIN/DEXTROSE PMX 400 MG in DEXTROSE/WATER 1 200ML.BAG IVPB STA (20:44)
--- NOTE | 2024-08-22 21:42 | P.GSHP ---
History of Present Illness H&P Date: 08/22/24 53-year-old female with PMHX of Ovarian Cancer presents to the [facility] ED for evaluation of right sided abdominal pain. Patient states that this started 3 days ago. She states it is mostly in her mid right abdomen. She states that the pain is worse with movement. She states she has nausea but no vomiting. She has an extensive surgical history which includes proctosigmoidectomy and hysterectomy with oophorectomy. She had a CT-AP which showed some inflammation around the gallbladder concerning for cholecystitis. Review of Systems Those systems with pertinent positive or pertinent negative responses have been documented in the HPI. Past Medical History Past Medical History: GERD/Reflux, Hyperlipidemia, Hypertension, Musculoskeletal Disorder, Pneumonia, Thyroid Disorder Additional Past Medical History / Comment(s): Ovarian Cancer. TACHYCARDIA, hx migraines, pneumonia 1999, diverticulitis caused rupture 04/21/18, thyroid nodules, hx anemia, born with one kidney. History of Any Multi-Drug Resistant Organisms: MRSA Date of last positivie culture/infection: 01/2018 MDRO Source:: left shoulder Past Surgical History: Appendectomy, Bowel Resection, Breast Surgery, Hysterectomy, Orthopedic Surgery Additional Past Surgical History / Comment(s): LT shoulder Rotator cuff; RT BREAST biopsy, ANAL SX AT , bowel resection with colostomy 04/2018 Past Anesthesia/Blood Transfusion Reactions: Previous Problems w/ Anesthesia, Motion Sickness, Postoperative Nausea & Vomiting (PONV) Additional Past Anesthesia/Blood Transfusion Reaction / Comment(s): STATES SEVERE NAUSEA LASTED FOR ONE MONTH POST HYSTERECTOMY and bowel resection. DIFFICULTY WAKING UP AFTER SURGERY PER PT. Past Psychological History: Anxiety, Depression Smoking Status: Never smoker Past Alcohol Use History: None Reported Past Drug Use History: None Reported - Past Family History Mother Family Medical History: Cancer Additional Family Medical History / Comment(s): THYROID Father Additional Family Medical History / Comment(s): Father from bowel blockage at the age of 69yrs. General Exam Limitations: no limitations General appearance: alert, in no apparent distress Head exam: Present: atraumatic, normocephalic, normal inspection Eye exam: Present: normal appearance, PERRL, EOMI. Absent: scleral icterus, conjunctival injection, periorbital swelling ENT exam: Present: mucous membranes dry Neck exam: Present: normal inspection. Absent: tenderness, meningismus, lympha denopathy Respiratory exam: Present: normal lung sounds bilaterally. Absent: respiratory distress, wheezes, rales, rhonchi, stridor Cardiovascular Exam: Present: regular rate, normal rhythm, normal heart sounds. Absent: systolic murmur, diastolic murmur, rubs, gallop, clicks GI/Abdominal exam: Present: soft, tenderness (Right mid abdomen), normal bowel sounds. Absent: distended, guarding, rebound, rigid Extremities exam: Present: normal inspection, full ROM, normal capillary refill. Absent: tenderness, pedal edema, joint swelling, calf tenderness Neurological exam: Present: alert, oriented X3 Psychiatric exam: Present: normal affect, normal mood Skin exam: Present: warm, dry, intact, normal color. Absent: rash 53 year old female presents with right sided abdominal pain. CT-AP shows inflammation around Gallbladder concerning for cholecystitis -NPO -IV fluids -Pain and Nausea Control -Cipro/Flagyl -RUQ US ordered -AM labs -Furher recs following US and clinical course Ruel Bello [facility] [phone] Past Medical History Past Medical History: GERD/Reflux, Hyperlipidemia, Hypertension, Musculoskeletal Disorder, Pneumonia, Thyroid Disorder Additional Past Medical History / Comment(s): Ovarian Cancer. TACHYCARDIA, hx migraines, pneumonia 1999, diverticulitis caused rupture 04/21/18, thyroid nodules, hx anemia, born with one kidney. History of Any Multi-Drug Resistant Organisms: MRSA Date of last positivie culture/infection: 01/2018 MDRO Source:: left shoulder Past Surgical History: Appendectomy, Bowel Resection, Breast Surgery, Hysterectomy, Orthopedic Surgery Additional Past Surgical History / Comment(s): LT shoulder Rotator cuff; RT BREAST biopsy, ANAL SX AT , bowel resection with colostomy 04/2018 Past Anesthesia/Blood Transfusion Reactions: Previous Problems w/ Anesthesia, Motion Sickness, Postoperative Nausea & Vomiting (PONV) Additional Past Anesthesia/Blood Transfusion Reaction / Comment(s): STATES SEVERE NAUSEA LASTED FOR ONE MONTH POST HYSTERECTOMY and bowel resection. DIFFICULTY WAKING UP AFTER SURGERY PER PT. Past Psychological History: Anxiety, Depression Smoking Status: Never smoker Past Alcohol Use History: None Reported Past Drug Use History: None Reported - Past Family History Mother Family Medical History: Cancer Additional Family Medical History / Comment(s): THYROID Father Additional Family Medical History / Comment(s): Father from bowel blockage at the age of 69yrs. Medications and Allergies Home Medications Medication Instructions Recorded Confirmed Type LORazepam [Ativan] 0.5 mg PO DAILY PRN 04/21/18 08/22/24 History Sertraline [Zoloft] 25 mg PO DAILY 08/22/24 08/22/24 History Allergies Allergy/AdvReac Type Severity Reaction Status Date / Time erythromycin base Allergy Rash/Hives Verified 08/22/24 19:08 [Erythromycin Base] paclitaxel [From Taxol] Allergy Anaphylaxis Verified 08/22/24 19:08 Penicillins Allergy Rash/Hives Verified 08/22/24 19:08 tamoxifen Allergy Anaphylaxis Verified 08/22/24 19:08 Surgical - Exam Vital Signs Temp Pulse Resp BP Pulse Ox 98.5 F 109 H 20 139/92 94 L 08/22/24 16:16 08/22/24 16:16 08/22/24 16:16 08/22/24 16:16 08/22/24 16:16 Results - Labs 08/22/24 16:53 08/22/24 16:53 Abnormal Lab Results - Last 24 Hours (Table) 08/22/24 08/22/24 08/22/24 Range/Units 16:53 16:53 17:19 WBC 13.1 H (3.8-10.6) k/uL Neutrophils # 11.0 H (1.3-7.7) k/uL Carbon Dioxide 21 L (22-30) mmol/L BUN 22 H (7-17) mg/dL Glucose 136 H (74-99) mg/dL AST 57 H (14-36) U/L ALT 51 H (4-34) U/L Urine Appearance Cloudy H (Clear) Ur Specific [place] 1.037 H (1.001-1.035) Urine Protein 2+ H (Negative) Urine Glucose (UA) Trace H (Negative) Urine Blood Moderate H (Negative) Ur Leukocyte Esterase Small H (Negative) Urine RBC 9 H (0-5) /hpf Urine Bacteria Rare H (None) /hpf Urine Mucus Few H (None) /hpf Diabetes panel 08/22/24 Range/Units 16:53 Sodium 139 (137-145) mmol/L Potassium 3.6 (3.5-5.1) mmol/L Chloride 106 (98-107) mmol/L Carbon Dioxide 21 L (22-30) mmol/L BUN 22 H (7-17) mg/dL Creatinine 0.77 (0.52-1.04) mg/dL Glucose 136 H (74-99) mg/dL Calcium 9.8 (8.4-10.2) mg/dL AST 57 H (14-36) U/L ALT 51 H (4-34) U/L Alkaline Phosphatase 79 (38-126) U/L Total Protein 7.8 (6.3-8.2) g/dL Albumin 4.8 (3.5-5.0) g/dL Calcium panel 08/22/24 Range/Units 16:53 Calcium 9.8 (8.4-10.2) mg/dL Albumin 4.8 (3.5-5.0) g/dL Pituitary panel 08/22/24 Range/Units 16:53 Sodium 139 (137-145) mmol/L Potassium 3.6 (3.5-5.1) mmol/L Chloride 106 (98-107) mmol/L Carbon Dioxide 21 L (22-30) mmol/L BUN 22 H (7-17) mg/dL Creatinine 0.77 (0.52-1.04) mg/dL Glucose 136 H (74-99) mg/dL Calcium 9.8 (8.4-10.2) mg/dL Adrenal panel 08/22/24 Range/Units 16:53 Sodium 139 (137-145) mmol/L Potassium 3.6 (3.5-5.1) mmol/L Chloride 106 (98-107) mmol/L Carbon Dioxide 21 L (22-30) mmol/L BUN 22 H (7-17) mg/dL Creatinine 0.77 (0.52-1.04) mg/dL Glucose 136 H (74-99) mg/dL Calcium 9.8 (8.4-10.2) mg/dL Total Bilirubin 1.2 (0.2-1.3) mg/dL AST 57 H (14-36) U/L ALT 51 H (4-34) U/L Alkaline Phosphatase 79 (38-126) U/L Total Protein 7.8 (6.3-8.2) g/dL Albumin 4.8 (3.5-5.0) g/dL
[2024-08-22] MEDS: SODIUM CHLORIDE 0.9% 1,000 ML IV SCH (23:13)
[2024-08-22] MEDS: metroNIDAZOLE-NS PMX 500 MG in SALINE 1 100ML.BAG IVPB STA (23:19)
[2024-08-22] MEDS: HYDROmorphone 0.5 MG/0.5 ML SYRINGE IVP PRN (23:27)
[2024-08-22] MEDS: metroNIDAZOLE-NS PMX 500 MG in SALINE 1 100ML.BAG IVPB SCH (23:27)
--- NOTE | 2024-08-23 00:32 | US ---
EXAMINATION TYPE: US abdomen limited DATE OF EXAM: 08/22/2024 COMPARISON: CT 08/22/24 CLINICAL INDICATION: Female, 53 years old with history of Cholecystitis; Cholecystitis seen on CT. Kanu harman RUQ pain TECHNIQUE: Grayscale and color Doppler imaging of the right upper quadrant was performed. FINDINGS: EXAM MEASUREMENTS: Liver Length: 16.8 cm Gallbladder Wall: 0.3 cm CBD: 1.0 cm Right Kidney: 11.7 x 5.1 x 4.9 cm BOX CAR BRACER NOTES:Limited by overlying bowel gas Pancreas: Visualized portions appear echogenic in appearance. Pancreatic duct seen, measures 4mm. Liver: Difficult to examine due to overlying bowel gas. Intercostal views. Appears wnl as best seen Gallbladder: Hydropic measuring up to 13.3cm in length. There is a 2.2 x 1.9cm echogenic foci seen w ithin the gallbladder neck. There is a thin septation within the gallbladder fundus and an area of co met tail artifact. Pericholecystic fluid seen. Evidence for sonographic Reyes's sign: Yes CBD: Dilated measuring 1.0cm Right Kidney: wnl as best seen IMPRESSION: Sonographic Reyes's sign with Cholelithiasis/biliary sludge with large gallstone in the upper neck s uggested. The gallbladder is distended. Correlate for acute cholecystitis. [facility], Workstation: [place] [facility] [id number], 08/23/2024 12:30 AM
[2024-08-23 08:36] LABS: Basophils # (A) 0.03 X 10*3/uL (0.00-0.10); Basophils % (A) 0.3 %; Eosinophils # (A) 0.03 X 10*3/uL (0.04-0.35); Eosinophils % (A) 0.3 %; HCT 38.7 % (37.2-46.3); HGB 12.5 g/dL (12.0-15.0); Lymphocytes # (A) 1.01 X 10*3/uL (0.90-5.00); Lymphocytes % (A) 9.7 %; MCH 27.5 pg (27.0-32.0); MCHC 32.3 g/dL (32.0-37.0); MCV 85.2 FL (80.0-97.0); Mean Platelet Volume 9.3 FL (9.5-12.2); Monocytes # (A) 0.77 X 10*3/uL (0.20-1.00); Monocytes % (A) 7.4 %; NRBC Per 100 WBC 0 X 10*3/uL (0.00-0.01); Neutrophils # (A) 8.49 X 10*3/uL (1.80-7.70); Neutrophils % (A) 81.9 %; Platelet Count 203 X 10*3/uL (140-440); RBC 4.54 X 10*6/uL (4.10-5.20); RDW 13.9 % (11.5-14.5); WBC 10.37 X 10*3/uL (4.50-10.00)
[2024-08-23 08:51] LABS: ALT 55 U/L (8-44); AST 48 U/L (13-35); Albumin 3.8 g/dL (3.8-4.9); Albumin/Globulin Ratio 1.73 Ratio (1.60-3.17); Alkaline Phosphatase 78 U/L (41-126); Bilirubin, Conjugated 0.25 mg/dL (0.20-0.40); Bilirubin,Unconjugated 0.35 mg/dL (0.20-1.00); Blood Urea Nitrogen 11.8 mg/dL (9.0-27.0); Calcium 8.6 mg/dL (8.7-10.3); Carbon Dioxide 20.2 mmol/L (21.6-31.8); Chloride 109 mmol/L (96-109); Globulin 2.2 g/dL (1.6-3.3); Glucose 118 mg/dL (70-110); Potassium 3.6 mmol/L (3.5-5.5); Sodium 140 mmol/L (135-145); Total Bilirubin 0.6 mg/dL (0.3-1.2)
--- NOTE | 2024-08-23 10:41 | P.EN ---
medically stable to proceed for Surgery. low risk
[2024-08-23] MEDS: METOPROLOL SUCCINATE (ER) 25 MG TAB.ER.24H PO STA (11:09)
--- NOTE | 2024-08-23 13:18 | P.PN ---
Subjective Progress Note Date: 08/23/24 Patient seen and examined at bedside. Still having some right upper quadrant abdominal pain but states that it is improved since her arrival. Ultrasound completed. Objective - Vital Signs Vital signs: Vital Signs Temp 98.4 F 08/23/24 07:31 Pulse 98 08/23/24 07:31 Resp 16 08/23/24 08:00 BP 145/84 08/23/24 07:31 Pulse Ox 94 L 08/23/24 07:31 FiO2 Intake & Output 08/22/24 08/23/24 08/23/24 18:59 06:59 18:59 Weight 73.936 kg 73.936 kg Other: Voiding Method Toilet Diaper # Voids 1 # Bowel Movements 1 - Constitutional General appearance: Present: cooperative, no acute distress - Respiratory Details: No difficulty with respiration - Gastrointestinal Gastrointestinal Comment(s): Soft, tender to palpation in right upper quadrant, nondistended, no rebound, no guarding - Psychiatric Psychiatric: Present: A&O x's 3 - Labs CBC & Chem 7: 08/23/24 04:40 08/23/24 04:40 Labs: Abnormal Lab Results - Last 24 Hours (Table) 08/22/24 08/22/24 08/22/24 Range/Units 16:53 16:53 17:19 WBC 13.1 H (3.8-10.6) k/uL MPV (9.5-12.2) FL Neutrophils # 11.0 H (1.3-7.7) k/uL Eosinophils # (0.04-0.35) X 10*3/uL Carbon Dioxide 21 L (22-30) mmol/L BUN 22 H (7-17) mg/dL Creatinine (0.6-1.5) mg/dL BUN/Creatinine Ratio (12.00-20.00) Ratio Glucose 136 H (74-99) mg/dL Calcium (8.7-10.3) mg/dL AST 57 H (14-36) U/L ALT 51 H (4-34) U/L Total Protein (6.2-8.2) g/dL Urine Appearance Cloudy H (Clear) Ur Specific [place] 1.037 H (1.001-1.035) Urine Protein 2+ H (Negative) Urine Glucose (UA) Trace H (Negative) Urine Blood Moderate H (Negative) Ur Leukocyte Esterase Small H (Negative) Urine RBC 9 H (0-5) /hpf Urine Bacteria Rare H (None) /hpf Urine Mucus Few H (None) /hpf 08/23/24 08/23/24 Range/Units 04:40 04:40 WBC 10.37 H (3.8-10.6) k/uL MPV 9.3 L (9.5-12.2) FL Neutrophils # 8.49 H (1.3-7.7) k/uL Eosinophils # 0.03 L (0.04-0.35) X 10*3/uL Carbon Dioxide 20.2 L (22-30) mmol/L BUN (7-17) mg/dL Creatinine 0.5 L (0.6-1.5) mg/dL BUN/Creatinine Ratio 23.60 H (12.00-20.00) Ratio Glucose 118 H (74-99) mg/dL Calcium 8.6 L (8.7-10.3) mg/dL AST 48 H (14-36) U/L ALT 55 H (4-34) U/L Total Protein 6.0 L (6.2-8.2) g/dL Urine Appearance (Clear) Ur Specific [place] (1.001-1.035) Urine Protein (Negative) Urine Glucose (UA) (Negative) Urine Blood (Negative) Ur Leukocyte Esterase (Negative) Urine RBC (0-5) /hpf Urine Bacteria (None) /hpf Urine Mucus (None) /hpf Assessment and Plan Plan: 53-year-old female with concern of cholecystitis. Ultrasound reviewed with 1 cm common bile duct. Will plan for MRCP. Otherwise, laboratory values appear to be improving. Further recommendations after MRCP is completed. This was discussed in depth with patient at bedside. She is agreeable to the plan.
[2024-08-23] MEDS: LORazepam 1 MG TAB PO STA (15:35)
--- NOTE | 2024-08-23 19:09 | MR ---
EXAMINATION TYPE: MR MRCP DATE OF EXAM: 08/23/2024 5:04 PM COMPARISON: Ultrasound and CT. CLINICAL INDICATION: Female, 53 years old with history of RUQ abdominal pain, Dilated CBD, RUQ abdomi nal pain, Dilated CBD, R/O CBD stone TECHNIQUE: Multi planar, T2-weighted imaging with and without fat saturation and chemical shift imag ing was performed of the abdomen. Then, heavily T2 weighted imaging (half-Fourier acquisition single- shot turbo spin-echo) was utilized in order to study the biliary system. Maximum intensity projectio n images were reconstructed from the original data of the biliary tree. 3D images were created on a [employer] work station. No Gadolinium given. FINDINGS: Lower Thorax: Streaky atelectasis in the lung bases with low lung volumes. Heart is mildly enlarged f or size. MRCP: * The intrahepatic ducts have a normal appearance. * The extrahepatic ducts have a normal appearance. * The common hepatic duct measures 7 mm in size. * The common bile duct at the level of the pancreatic head measures 7 mm in size. * The pancreatic duct is normal. * The gallbladder distended with wall thickening. The gallbladder measures up to 12.7 cm in length. There is a 38 x 22 mm gallstone in the gallbladder neck. Biliary sludge also present in the fundus. Abdomen: Liver: No evidence for hepatic steatosis or cirrhosis. Scattered high T2 signal cysts are seen throug hout the liver. Pancreas: No ductal dilation. No evidence for solid mass. Spleen: Normal for size. Adrenal glands: Unremarkable. Kidneys: No evidence for obstructive uropathy. No suspicious renal masses. Simple appearing left aleksey l cyst. Horseshoe kidney present present. Stomach and Bowel: No evidence for bowel wall thickening or evidence for obstruction. Retroperitoneum/Peritoneum: No evidence of pneumoperitoneum or free fluid. Vasculature: No aortic aneurysm. Musculoskeletal: The osseous structures appear intact. Lymph Nodes: No gross evidence for lymphadenopathy. Abdominal wall: Unremarkable. IMPRESSION: 1. Acute cholecystitis secondary to 38 x 22 mm gallstone the gallbladder neck. 2. No evidence to suggest ductal stricture, choledocholithiasis. There is mild biliary dilation of t he extrahepatic bladder system. Horseshoe kidney present. 3. Simple appearing left renal cyst. 4. Hepatic steatosis. 5. Mild cardiomegaly with suspected bibasilar atelectasis. [facility], , 08/23/2024 7:06 PM
[2024-08-23] MEDS: LEVOFLOXACIN 500MG-D5W PMX 500 MG in DEXTROSE/WATER 1 100ML.BAG IVPB SCH (20:44)
--- NOTE | 2024-08-23 22:24 | P.CONS ---
History of Present Illness - Reason for Consult Consult date: 08/23/24 Medical management Requesting physician: Ruel Bello - Chief Complaint Abdominal pain - History of Present Illness This is a very pleasant 53-year-old patient who follows with Dr Solorio. Chronic stable medical condition include GERD, hyperlipidemia hypertension osteoarthritis hypothyroid ovarian cancer ruptured diverticulitis in 2018 unilateral kidney. Yesterday patient started having pain across the mid to upper abdomen. Abdominal pain started getting worsening with some cramping. Nausea. Low-grade fever. Normally has a 1-2 bowel movements a day. Had couple of loose stools. Pain became progressively worse and presented to the hospital. Ultrasound in the ER showed evidence of acute cholecystitis. Also 2.2 x 1.9 cm echogenic foci in the gallbladder neck. CBD nondilated 1 cm. Review of systems: GEN.: Fever tired EYES: None HEENT: None NECK: None RESPIRATORY: None CARDIOVASCULAR: None GASTROINTESTINAL: As above GENITOURINARY: None MUSCULOSKELETAL: Some joint pains LYMPHATICS: None HEMATOLOGICAL: None PSYCHIATRY: None NEUROLOGICAL: None Social history: No smoking no alcohol. Works at [employer]. Physical examination: VITAL SIGNS: 100, Tmax, 109, 20, 139 x 92, 94% room air upon presentation GENERAL: BMI 28.0, laying bed awake slightly uncomfortable. EYES: Pupils equal. Conjunctiva yessenia l. HEENT: External appearance of nose and ears normal, oral cavity grossly normal. NECK: JVD not raised; masses not palpable. HEART: First and second heart sounds are normal; no edema. LUNGS: Respiratory rate normal; clear to auscultation. ABDOMEN: Soft, right upper quadrant tenderness, no guarding rigidity r, liver sp ruth ann not palpable, no masses palpable. PSYCH: Alert and oriented x3; mood and affect yessenia l. MUSCULOSKELETAL:No Clubbing/cyanosis;muscles-grossly intact NEUROLOGICAL: Cranial nerves grossly intact; no facial asymmetry, power and sensation grossly intact. LYMPHATICS: No lymph nodes palpable in the axilla and neck INVESTIGATIONS, reviewed in the clinical context: August 23, 2024: White count 10.3 hemoglobin 12.5 platelets 203 potassium 3.6 creatinine 0.5 lactic acid 1.5 AST [address] abdomen pelvis: Acute cholecystitis. Malrotation of the left kidney. Appears to be partial fusion across the midline. Mild fatty infiltration of the liver. Abdominal ultrasound: Hydropic 13.3 cm in length. 2.2 x 1.9 cm echogenic foci within the gallbladder neck. CBD 1.0 cm. Assessment plan: -Acute cholecystitis with a stone at the gallbladder neck. With a dilated CBD. Being followed by general surgery. -Depression anxiety Zoloft, Ativan -Tachycardia, hypertension Beta-roldan at home -Nonalcoholic fatty liver disease/hepatic steatosis -Unilateral kidney congenital Care was discussed with patient at the bedside. Patient is medically stable to proceed for surgery. Low risk. Thank you Dr. Bello Past Medical History Past Medical History: GERD/Reflux, Hyperlipidemia, Hypertension, Musculoskeletal Disorder, Pneumonia, Thyroid Disorder Additional Past Medical History / Comment(s): Ovarian Cancer. TACHYCARDIA, hx migraines, pneumonia 1999, diverticulitis caused rupture 04/21/18, thyroid nodu les, hx anemia, born with one kidney. History of Any Multi-Drug Resistant Organisms: MRSA Year Discovered:: 01/2018 MDRO Source:: left shoulder Past Surgical History: Appendectomy, Bowel Resection, Breast Surgery, Hysterectomy, Orthopedic Surgery Additional Past Surgical History / Comment(s): LT shoulder Rotator cuff; RT BREAST biopsy, ANAL SX AT , bowel resection with colostomy 04/2018 Past Anesthesia/Blood Transfusion Reactions: Previous Problems w/ Anesthesia, Motion Sickness, Postoperative Nausea & Vomiting (PONV) Additional Past Anesthesia/Blood Transfusion Reaction / Comm: STATES SEVERE NAUSEA LASTED FOR ONE MONTH POST HYSTERECTOMY and bowel resection. DIFFICULTY WAKING UP AFTER SURGERY PER PT. Past Psychological History: Anxiety, Depression Smoking Status: Never smoker Past Alcohol Use History: None Reported Past Drug Use History: None Reported - Past Family History Mother Family Medical History: Cancer Additional Family Medical History / Comment(s): THYROID Father Additional Family Medical History / Comment(s): Father from bowel blockage at the age of 69yrs. Medications and Allergies Home Medications Medication Instructions Recorded Confirmed Type LORazepam [Ativan] 0.5 mg PO DAILY PRN 04/21/18 08/22/24 History Sertraline [Zoloft] 25 mg PO DAILY 08/22/24 08/22/24 History Metoprolol Succinate [Metoprolol 25 PO DAILY 08/23/24 History Succinate ER] Allergies Allergy/AdvReac Type Severity Reaction Status Date / Time erythromycin base Allergy Rash/Hives Verified 08/22/24 19:08 [Erythromycin Base] paclitaxel [From Taxol] Allergy Anaphylaxis Verified 08/22/24 19:08 Penicillins Allergy Rash/Hives Verified 08/22/24 19:08 tamoxifen Allergy Anaphylaxis Verified 08/22/24 19:08 Physical Exam Vitals: Vital Signs Temp Pulse Pulse Resp BP BP Pulse Ox 08/23/24 08:00 16 08/23/24 07:31 98.4 F 98 16 145/84 94 L 08/23/24 03:03 99.1 F 98 18 131/76 91 L 08/22/24 22:04 100.0 F H 98 17 142/81 91 L 08/22/24 21:23 78 16 127/78 98 08/22/24 20:55 95 16 144/86 97 08/22/24 16:16 98.5 F 109 H 20 139/92 94 L Intake and Output 08/22/24 08/23/24 08/23/24 22:59 06:59 14:59 Other: Voiding Method Toilet Diaper # Voids 1 # Bowel Movements 1 Weight 73.936 kg Results CBC & Chem 7: 08/23/24 04:40 08/23/24 04:40 Labs: Abnormal Lab Results - Last 24 Hours (Table) 08/22/24 08/22/24 08/22/24 Range/Units 16:53 16:53 17:19 WBC 13.1 H (3.8-10.6) k/uL MPV (9.5-12.2) FL Neutrophils # 11.0 H (1.3-7.7) k/uL Eosinophils # (0.04-0.35) X 10*3/uL Carbon Dioxide 21 L (22-30) mmol/L BUN 22 H (7-17) mg/dL Creatinine (0.6-1.5) mg/dL BUN/Creatinine Ratio (12.00-20.00) Ratio Glucose 136 H (74-99) mg/dL Calcium (8.7-10.3) mg/dL AST 57 H (14-36) U/L ALT 51 H (4-34) U/L Total Protein (6.2-8.2) g/dL Urine Appearance Cloudy H (Clear) Ur Specific [place] 1.037 H (1.001-1.035) Urine Protein 2+ H (Negative) Urine Glucose (UA) Trace H (Negative) Urine Blood Moderate H (Negative) Ur Leukocyte Esterase Small H (Negative) Urine RBC 9 H (0-5) /hpf Urine Bacteria Rare H (None) /hpf Urine Mucus Few H (None) /hpf 08/23/24 08/23/24 Range/Units 04:40 04:40 WBC 10.37 H (3.8-10.6) k/uL MPV 9.3 L (9.5-12.2) FL Neutrophils # 8.49 H (1.3-7.7) k/uL Eosinophils # 0.03 L (0.04-0.35) X 10*3/uL Carbon Dioxide 20.2 L (22-30) mmol/L BUN (7-17) mg/dL Creatinine 0.5 L (0.6-1.5) mg/dL BUN/Creatinine Ratio 23.60 H (12.00-20.00) Ratio Glucose 118 H (74-99) mg/dL Calcium 8.6 L (8.7-10.3) mg/dL AST 48 H (14-36) U/L ALT 55 H (4-34) U/L Total Protein 6.0 L (6.2-8.2) g/dL Urine Appearance (Clear) Ur Specific [place] (1.001-1.035) Urine Protein (Negative) Urine Glucose (UA) (Negative) Urine Blood (Negative) Ur Leukocyte Esterase (Negative) Urine RBC (0-5) /hpf Urine Bacteria (None) /hpf Urine Mucus (None) /hpf
[2024-08-24] MEDS: METOPROLOL SUCCINATE (ER) 25 MG TAB.ER.24H PO SCH (08:01)
--- NOTE | 2024-08-24 15:59 | P.PN ---
Subjective Progress Note Date: 08/24/24 SURGICAL PROGRESS NOTE CHIEF COMPLAINT: Cholecystitis HISTORY OF PRESENT ILLNESS: Patient continues to have right upper quadrant abdominal pain. MRCP reports acute cholecystitis secondary to gallstone in the gallbladder neck. No evidence of choledocholithiasis. Afebrile. WBC is down from 13.1-10.37 AST 48 ALT 55 total bili 0.6 PHYSICAL EXAM: VITAL SIGNS: Reviewed. GENERAL: Well-developed in no acute distress. HEENT: No sclera icterus. Extraocular movements grossly intact. Moist buccal mucosa. Head is atraumatic, normocephalic. ABDOMEN: Soft. Nondistended. Tenderness to palpation right upper quadrant NEUROLOGIC: Alert and oriented. Cranial nerves II through XII grossly intact. ASSESSMENT: 1. Acute cholecystitis PLAN: -Patient scheduled for laparoscopic cholecystectomy tomorrow -N.p.o. after midnight -Continue antibiotics -Okay for clear liquid diet today Physician Director Of Employee Development note has been reviewed by physician. Signing provider agrees with the documented findings, assessment, and plan of care. Attestation Patient seen and examined at bedside. MRCP completed with acute cholecystitis noted and no evidence of choledocholithiasis. White count trending down. Continue IV antibiotics. N.p.o. after midnight but patient can have clear liquid diet today. Plan for laparoscopic cholecystectomy tomorrow. Mariano Staton DO Objective - Vital Signs Vital signs: Vital Signs Temp 98.7 F 08/24/24 14:31 Pulse 98 08/24/24 14:31 Resp 17 08/24/24 15:39 BP 156/91 08/24/24 14:31 Pulse Ox 98 08/24/24 14:31 FiO2 Intake & Output 08/23/24 08/24/24 08/24/24 18:59 06:59 18:59 Intake Total 0 0 Balance 0 0 Intake: Oral 0 0 Tube Feeding 0 Blood Product 0 Other: Voiding Method Toilet Toilet Toilet Diaper Diaper # Voids 2 2 3 # Bowel Movements 3 - Labs CBC & Chem 7: 08/23/24 04:40 08/23/24 04:40
--- NOTE | 2024-08-24 16:33 | P.PN ---
Progress Note - Text Progress Note Date: 08/24/24 - Chief Complaint Abdominal pain - History of Present Illness This is a very pleasant 53-year-old patient who follows with Dr Solorio. Chronic stable medical condition include GERD, hyperlipidemia hypertension osteoarthritis hypothyroid ovarian cancer ruptured diverticulitis in 2018 unilateral kidney. Yesterday patient started having pain across the mid to upper abdomen. Abdominal pain started getting worsening with some cramping. Nausea. Low-grade fever. Normally has a 1-2 bowel movements a day. Had couple of loose stools. Pain became progressively worse and presented to the hospital. Ultrasound in the ER showed evidence of acute cholecystitis. Also 2.2 x 1.9 cm echogenic foci in the gallbladder neck. CBD nondilated 1 cm. August 24: Saw the patient this morning. Laying in bed. Having right upper quadrant pain. On IV Levaquin and Flagyl. IV fluids. Clear liquids. Plan for surgical intervention tomorrow. Active Medications Acetaminophen (Acetaminophen Tab 325 Mg Tab) 650 mg PO Q6HR PRN PRN Reason: Mild Pain or Fever > 100.5 Hydromorphone HCl (Hydromorphone 0.5 Mg/0.5 Ml Syringe) 0.5 mg IVP Q3HR PRN PRN Reason: Moderate Pain (Scale 4 to 6) Last Admin: 08/24/24 14:48 Dose: 0.5 mg Hydromorphone HCl (Hydromorphone 0.5 Mg/0.5 Ml Syringe) 1 mg IVP Q3HR PRN PRN Reason: Severe Pain (Scale 7 to 10) Sodium Chloride (Saline 0.9%) 1,000 mls @ 130 mls/hr IV .Q7H42M [facility] Last Admin: 08/24/24 08:03 Dose: 130 mls/hr Levofloxacin 500 mg/ IV (Solution) 100 mls @ 100 mls/hr IVPB Q24H [facility]; Protocol Last Admin: 08/23/24 20:44 Dose: 100 mls/hr Metronidazole 500 mg/ IV (Solution) 100 mls @ 100 mls/hr IVPB Q8HR [facility]; Protocol Last Admin: 08/24/24 15:44 Dose: 100 mls/hr Metoprolol Succinate (Metoprolol Succinate (Er) 25 Mg Tab.Er.24h) 25 mg PO DAILY [facility] Last Admin: 08/24/24 08:01 Dose: 25 mg Naloxone HCl (Naloxone 0.4 Mg/Ml 1 Ml Vial) 0.2 mg IV Q2M PRN PRN Reason: Opioid Reversal Prochlorperazine Edisylate (Prochlorperazine Inj 10 Mg/2 Ml Vial) 5 mg IVP Q8HR PRN PRN Reason: Nausea And Vomiting Prochlorperazine Maleate (Prochlorperazine 5 Mg Tab) 5 mg PO Q8HR PRN PRN Reason: Nausea And Vomiting Social history: No smoking no alcohol. Works at [employer]. Physical examination: VITAL SIGNS: 98.7, 98, 17, 156.91, 98% room air GENERAL: BMI 28.0, laying bed awake slightly uncomfortable. EYES: Pupils equal. Conjunctiva yessenia l. HEENT: External appearance of nose and ears normal, oral cavity grossly normal. NECK: JVD not raised; masses not palpable. HEART: First and second heart sounds are normal; no edema. LUNGS: Respiratory rate normal; clear to auscultation. ABDOMEN: Soft, right upper quadrant tenderness, no guarding rigidity r, liver spleen not palpable, no masses palpable. PSYCH: Alert and oriented x3; mood and affect yessenia l. MUSCULOSKELETAL:No Clubbing/cyanosis;muscles-grossly intact INVESTIGATIONS, reviewed in the clinical context: August 23, 2024: White count 10.3 hemoglobin 12.5 platelets 203 potassium 3.6 creatinine 0.5 lactic acid 1.5 AST [address] abdomen pelvis: Acute cholecystitis. Malrotation of the left kidney. Appears to be partial fusion across the midline. Mild fatty infiltration of the liver. Abdominal ultrasound: Hydropic 13.3 cm in length. 2.2 x 1.9 cm echogenic foci within the gallbladder neck. CBD 1.0 cm. Assessment plan: -Acute cholecystitis with a stone at the gallbladder neck. With a dilated CBD.: Slow to respond IV Levaquin. IV Flagyl Being followed by general surgery.-For surgical intervention tomorrow -Depression anxiety Zoloft, Ativan -Tachycardia, hypertension Toprol-XL 25 mg -Nonalcoholic fatty liver disease/hepatic steatosis -Unilateral kidney congenital Clear liquid diet. IV Levaquin and IV Flagyl. Plan for surgery tomorrow Thank you Dr. Bello Past Medical History Past Medical History: GERD/Reflux, Hyperlipidemia, Hypertension, Musculoskeletal Disorder, Pneumonia, Thyroid Disorder Additional Past Medical History / Comment(s): Ovarian Cancer. TACHYCARDIA, hx migraines, pneumonia 1999, diverticulitis caused rupture 04/21/18, thyroid nodul es, hx anemia, born with one kidney. History of Any Multi-Drug Resistant Organisms: MRSA Year Discovered:: 01/2018 MDRO Source:: left shoulder Past Surgical History: Appendectomy, Bowel Resection, Breast Surgery, Hysterectomy, Orthopedic Surgery Additional Past Surgical History / Comment(s): LT shoulder Rotator cuff; RT BREAST biopsy, ANAL SX AT , bowel resection with colostomy 04/2018 Past Anesthesia/Blood Transfusion Reactions: Previous Problems w/ Anesthesia, Motion Sickness, Postoperative Nausea & Vomiting (PONV) Additional Past Anesthesia/Blood Transfusion Reaction / Comm: STATES SEVERE NAUSEA LASTED FOR ONE MONTH POST HYSTERECTOMY and bowel resection. DIFFICULTY WAKING UP AFTER SURGERY PER PT. Past Psychological History: Anxiety, Depression Smoking Status: Never smoker Past Alcohol Use History: None Reported Past Drug Use History: None Reported
[2024-08-24] MEDS: HYDROmorphone 0.5 MG/0.5 ML SYRINGE IVP PRN (20:56)
[2024-08-25 06:57] LABS: Basophils % (A) 0 %; Eosinophils # (A) 0.1 k/uL (0-0.7); Eosinophils % (A) 1 %; HCT 35.7 % (34.0-46.0); Lymphocytes % (A) 14 %; MCH 27.7 pg (25.0-35.0); MCHC 32.6 g/dL (31.0-37.0); MCV 84.9 fL (80.0-100.0); Mean Platelet Volume 7.4; Monocytes # (A) 0.4 k/uL (0-1.0); Monocytes % (A) 6 %; Neutrophils # (A) 5.3 k/uL (1.3-7.7); Neutrophils % (A) 78 %; Platelet Count 232 k/uL (150-450); RDW 13.5 % (11.5-15.5); WBC 6.8 k/uL (3.8-10.6)
[2024-08-25 07:06] LABS: HGB 11.6 gm/dL (11.4-16.0)
[2024-08-25 07:29] LABS: ALT 32 U/L (4-34); AST 20 U/L (14-36); African American GFR (CKD) >90 (>60 ml/min/1.73 sqM); Albumin 3.3 g/dL (3.5-5.0); Albumin/Globulin Ratio 1.3; Alkaline Phosphatase 92 U/L (38-126); Anion Gap 9 mmol/L; Blood Urea Nitrogen 9 mg/dL (7-17); Calcium 8.6 mg/dL (8.4-10.2); Carbon Dioxide 22 mmol/L (22-30); Chloride 106 mmol/L (98-107); Globulin 2.5 g/dL; Glucose 89 mg/dL (74-99); Non-African American GFR(CKD) >90 (>60 ml/min/1.73 sqM); Potassium 3.3 mmol/L (3.5-5.1); Sodium 137 mmol/L (137-145); Total Bilirubin 0.5 mg/dL (0.2-1.3); Total Protein 5.8 g/dL (6.3-8.2)
[2024-08-25] MEDS: PROCHLORPERAZINE INJ 10 MG/2 ML VIAL IVP PRN (08:15)
[2024-08-25] MEDS: POTASSIUM CHLORIDE ER 20 MEQ TAB.ER PO STA (09:55)
[2024-08-25] MEDS: SCOPOLAMINE 1 MG/72 HR PATCH TRANSDERM STA (14:30)
[2024-08-25] MEDS: ONDANSETRON 4 MG/2 ML VIAL IVP PRN (14:30)
[2024-08-25] MEDS: DEXAMETHASONE SOD PHOSPHATE 4 MG/ML 1 ML VIAL IVP STA (14:30)
[2024-08-25] MEDS: FAMOTIDINE 20 MG/2 ML VIAL IV STA (14:39)
[2024-08-25] MEDS: IV FLUID CONTINUATION 500 ML IV ONE (14:48)
[2024-08-25] MEDS: HEPARIN SODIUM,PORCINE 5,000 UNIT/ML 1 ML VIAL SQ STA (14:54)
[2024-08-25] MEDS ORDERED: LABETALOL 5 MG/ML VIAL MDV ONE (16:32)
[2024-08-25] MEDS ORDERED: fentaNYL (PF) 50 MCG/ML 2 ML AMP ONE (16:32)
[2024-08-25] MEDS ORDERED: hydrALAZINE HCL 20 MG/ML 1 ML VIAL ONE (16:32)
[2024-08-25] MEDS ORDERED: NEOSTIGMINE 1 MG/ML 10 ML VIAL ONE (16:32)
[2024-08-25] MEDS ORDERED: GLYCOPYRROLATE 0.2 MG/ML 2 ML VIAL ONE (16:32)
[2024-08-25] MEDS ORDERED: SUCCINYLCHOLINE CHLORIDE 200 MG/10 ML VIAL IV ONE (16:32)
[2024-08-25] MEDS ORDERED: ROCURONIUM 10 MG/ML (5 ML VIAL) IV ONE (16:32)
[2024-08-25] MEDS ORDERED: LIDOCAINE 1% INJ 10MG/ML (20 ML MDV) ONE (16:32)
[2024-08-25] MEDS ORDERED: PROPOFOL 10 MG/ML 20 ML VIAL IV ONE (16:32)
[2024-08-25] MEDS ORDERED: diphenhydrAMINE 50 MG/ML 1 ML VIAL ONE (16:32)
[2024-08-25] MEDS ORDERED: HYDROmorphone (PF) 1 MG/ML ONE (16:32)
[2024-08-25] MEDS: LACTATED RINGERS 1,000 ML IV ONE ×2 (16:45→18:21)
[2024-08-25] MEDS: LIDOCAINE 1%-EPI 1:100,000 20 ML VIAL SQ ONE ×2 (16:54→18:57)
--- NOTE | 2024-08-25 17:55 | P.PN ---
Progress Note - Text Progress Note Date: 08/25/24 - Chief Complaint Abdominal pain - History of Present Illness This is a very pleasant 53-year-old patient who follows with Dr Solorio. Chronic stable medical condition include GERD, hyperlipidemia hypertension osteoarthritis hypothyroid ovarian cancer ruptured diverticulitis in 2018 unilateral kidney. Yesterday patient started having pain across the mid to upper abdomen. Abdominal pain started getting worsening with some cramping. Nausea. Low-grade fever. Normally has a 1-2 bowel movements a day. Had couple of loose stools. Pain became progressively worse and presented to the hospital. Ultrasound in the ER showed evidence of acute cholecystitis. Also 2.2 x 1.9 cm echogenic foci in the gallbladder neck. CBD nondilated 1 cm. August 24: Saw the patient this morning. Laying in bed. Having right upper quadrant pain. On IV Levaquin and Flagyl. IV fluids. Clear liquids. Plan for surgical intervention tomorrow. August 25: Saw the patient this morning. Still having right upper quadrant pain. Was pending surgery. Getting antibiotics. NPO. IV fluids. Due for surgery this afternoon Active Medications Acetaminophen (Acetaminophen Tab 325 Mg Tab) 650 mg PO Q6HR PRN PRN Reason: Mild Pain or Fever > 100.5 Hydromorphone HCl (Hydromorphone 0.5 Mg/0.5 Ml Syringe) 0.5 mg IVP Q3HR PRN PRN Reason: Moderate Pain (Scale 4 to 6) Last Admin: 08/25/24 08:15 Dose: 0.5 mg Hydromorphone HCl (Hydromorphone 0.5 Mg/0.5 Ml Syringe) 1 mg IVP Q3HR PRN PRN Reason: Severe Pain (Scale 7 to 10) Last Admin: 08/25/24 00:48 Dose: 1 mg Sodium Chloride (Saline 0.9%) 1,000 mls @ 130 mls/hr IV .Q7H42M [facility] Last Admin: 08/25/24 09:44 Dose: Not Given Levofloxacin 500 mg/ IV (Solution) 100 mls @ 100 mls/hr IVPB Q24H [facility]; Protocol Last Admin: 08/24/24 21:22 Dose: 100 mls/hr Metronidazole 500 mg/ IV (Solution) 100 mls @ 100 mls/hr IVPB Q8HR [facility]; Protocol Last Admin: 08/25/24 08:05 Dose: 100 mls/hr Metoprolol Succinate (Metoprolol Succinate (Er) 25 Mg Tab.Er.24h) 25 mg PO DAILY [facility] Last Admin: 08/25/24 09:55 Dose: 25 mg Naloxone HCl (Naloxone 0.4 Mg/Ml 1 Ml Vial) 0.2 mg IV Q2M PRN PRN Reason: Opioid Reversal Ondansetron HCl (Ondansetron 4 Mg/2 Ml Vial) 4 mg IVP Q8HR PRN PRN Reason: Nausea And Vomiting Last Admin: 08/25/24 14:30 Dose: 4 mg Prochlorperazine Edisylate (Prochlorperazine Inj 10 Mg/2 Ml Vial) 5 mg IVP Q8HR PRN PRN Reason: Nausea And Vomiting Last Admin: 08/25/24 08:15 Dose: 5 mg Prochlorperazine Maleate (Prochlorperazine 5 Mg Tab) 5 mg PO Q8HR PRN PRN Reason: Nausea And Vomiting Social history: No smoking no alcohol. Works at [employer]. Physical examination: VITAL SIGNS: 97.4, 93, 21, 158 x 91, 94% room air GENERAL: Sitting up in bed slightly uncomfortable. EYES: Pupils equal. Conjunctiva yessenia l. HEENT: External appearance of nose and ears normal, oral cavity grossly normal. NECK: JVD not raised; masses not palpable. HEART: First and second heart sounds are normal; no edema. LUNGS: Respiratory rate normal; clear to auscultation. ABDOMEN: Soft, right upper quadrant tenderness, no guarding rigidity r, liver spleen not palpable, no masses palpable. PSYCH: Alert and oriented x3; mood and affect yessenia l. MUSCULOSKELETAL:No Clubbing/cyanosis;muscles-grossly intact INVESTIGATIONS, reviewed in the clinical context: August 25: White count 6.8 hemoglobin 11.6 potassium 3.3 creatinine 0.46 August 23, 2024: White count 10.3 hemoglobin 12.5 platelets 203 potassium 3.6 creatinine 0.5 lactic acid 1.5 AST [address] abdomen pelvis: Acute cholecystitis. Malrotation of the left kidney. Appears to be partial fusion across the midline. Mild fatty infiltration of the liver. Abdominal ultrasound: Hydropic 13.3 cm in length. 2.2 x 1.9 cm echogenic foci within the gallbladder neck. CBD 1.0 cm. Assessment plan: -Acute cholecystitis with a stone at the gallbladder neck. With a dilated CBD.: Slow to respond IV Levaquin. IV Flagyl Being followed by general surgery.-For surgery this afternoon -Depression anxiety Zoloft, Ativan -Tachycardia, hypertension Toprol-XL 25 mg -Nonalcoholic fatty liver disease/hepatic steatosis Follow-up with Dr. Janette Abdalla outpatient -Unilateral kidney congenital N.p.o. IV Levaquin and IV Flagyl. Pending surgery this afternoon Thank you Dr. Bello Past Medical History Past Medical History: GERD/Reflux, Hyperlipidemia, Hypertension, Musculoskeletal Disorder, Pneumonia, Thyroid Disorder Additional Past Medical History / Comment(s): Ovarian Cancer. TACHYCARDIA, hx migraines, pneumonia 1999, diverticulitis caused rupture 04/21/18, thyroid nodules, hx anemia, born with one kidney. History of Any Multi-Drug Resistant Organisms: MRSA Year Discovered:: 01/2018 MDRO Source:: left shoulder Past Surgical History: Appendectomy, Bowel Resection, Breast Surgery, Hysterectomy, Orthopedic Surgery Additional Past Surgical History / Comment(s): LT shoulder Rotator cuff; RT BREAST biopsy, ANAL SX AT , bowel resection with colostomy 04/2018 Past Anesthesia/Blood Transfusion Reactions: Previous Problems w/ Anesthesia, Motion Sickness, Postoperative Nausea & Vomiting (PONV) Additional Past Anesthesia/Blood Transfusion Reaction / Comm: STATES SEVERE NAUSEA LASTED FOR ONE MONTH POST HYSTERECTOMY and bowel resection. DIFFICULTY WAKING UP AFTER SURGERY PER PT. Past Psychological History: Anxiety, Depression Smoking Status: Never smoker Past Alcohol Use History: None Reported Past Drug Use History: None Reported
[2024-08-25] MEDS: HYDROmorphone 0.5 MG/0.5 ML SYRINGE IVP PRN (19:37)
[2024-08-25] MEDS: ACETAMINOPHEN IV (For NPO) 1,000 MG in EMPTY BAG 1 BAG IVPB STA (20:30)
[2024-08-25] MEDS: INDOCYANINE GREEN 25 MG VIAL IV STA (21:16)
[2024-08-26] MEDS: ACETAMINOPHEN TAB 325 MG TAB PO PRN (00:02)
[2024-08-26] MEDS: metroNIDAZOLE-NS PMX 500 MG in SALINE 1 100ML.BAG IVPB SCH (04:22)
[2024-08-26] MEDS ORDERED: POTASSIUM CHLORIDE ER 20 MEQ TAB.ER PO STA (12:37)
--- NOTE | 2024-08-26 12:38 | P.PN ---
Progress Note - Text Progress Note Date: 08/26/24 - Chief Complaint Abdominal pain - History of Present Illness This is a very pleasant 53-year-old patient who follows with Dr Solorio. Chronic stable medical condition include GERD, hyperlipidemia hypertension osteoarthritis hypothyroid ovarian cancer ruptured diverticulitis in 2018 unilateral kidney. Yesterday patient started having pain across the mid to upper abdomen. Abdominal pain started getting worsening with some cramping. Nausea. Low-grade fever. Normally has a 1-2 bowel movements a day. Had couple of loose stools. Pain became progressively worse and presented to the hospital. Ultrasound in the ER showed evidence of acute cholecystitis. Also 2.2 x 1.9 cm echogenic foci in the gallbladder neck. CBD nondilated 1 cm. August 24: Saw the patient this morning. Laying in bed. Having right upper quadrant pain. On IV Levaquin and Flagyl. IV fluids. Clear liquids. Plan for surgical intervention tomorrow. August 25: Saw the patient this morning. Still having right upper quadrant pain. Was pending surgery. Getting antibiotics. NPO. IV fluids. Due for surgery this afternoon August 26: Patient underwent cholecystectomy yesterday. Has a MAVIS drain. Apparently it was a rather angry appearing gallbladder. Pain is present. Per surgery has been placed on low-fat diet. On IV Levaquin and Flagyl. Active Medications Acetaminophen (Acetaminophen Tab 325 Mg Tab) 650 mg PO Q6HR PRN PRN Reason: Mild Pain or Fever > 100.5 Hydromorphone HCl (Hydromorphone 0.5 Mg/0.5 Ml Syringe) 0.5 mg IVP Q3HR PRN PRN Reason: Moderate Pain (Scale 4 to 6) Last Admin: 08/25/24 08:15 Dose: 0.5 mg Hydromorphone HCl (Hydromorphone 0.5 Mg/0.5 Ml Syringe) 1 mg IVP Q3HR PRN PRN Reason: Severe Pain (Scale 7 to 10) Last Admin: 08/26/24 08:24 Dose: 1 mg Sodium Chloride (Saline 0.9%) 1,000 mls @ 130 mls/hr IV .Q7H42M [facility] Last Admin: 08/26/24 08:19 Dose: 130 mls/hr Levofloxacin 500 mg/ IV (Solution) 100 mls @ 100 mls/hr IVPB Q24H [facility]; Protocol Last Admin: 08/25/24 22:39 Dose: 100 mls/hr Metronidazole 500 mg/ IV (Solution) 100 mls @ 100 mls/hr IVPB Q8H [facility]; Protocol Last Admin: 08/26/24 04:22 Dose: 100 mls/hr Metoprolol Succinate (Metoprolol Succinate (Er) 25 Mg Tab.Er.24h) 25 mg PO DAILY [facility] Last Admin: 08/26/24 08:24 Dose: 25 mg Naloxone HCl (Naloxone 0.4 Mg/Ml 1 Ml Vial) 0.2 mg IV Q2M PRN PRN Reason: Opioid Reversal Ondansetron HCl (Ondansetron 4 Mg/2 Ml Vial) 4 mg IVP Q8HR PRN PRN Reason: Nausea And Vomiting Last Admin: 08/26/24 00:06 Dose: 4 mg Prochlorperazine Edisylate (Prochlorperazine Inj 10 Mg/2 Ml Vial) 5 mg IVP Q8HR PRN PRN Reason: Nausea And Vomiting Last Admin: 08/25/24 08:15 Dose: 5 mg Prochlorperazine Maleate (Prochlorperazine 5 Mg Tab) 5 mg PO Q8HR PRN PRN Reason: Nausea And Vomiting Social history: No smoking no alcohol. Works at [employer]. Physical examination: VITAL SIGNS: 98.6, 83, 16, 159 x 86, 95% room GENERAL: Reclining in bed, tired EYES: Pupils equal. Conjunctiva yessenia l. HEENT: External appearance of nose and ears normal, oral cavity grossly normal. NECK: JVD not raised; masses not palpable. HEART: First and second heart sounds are normal; no edema. LUNGS: Respiratory rate normal; clear to auscultation. ABDOMEN: Soft, right upper quadrant tenderness, no guarding rigidity r, liver spleen not palpable, no masses palpable. Right-sided MAVIS drain-with cloudy yellow output PSYCH: Alert and oriented x3; mood and affect yessenia l. MUSCULOSKELETAL:No Clubbing/cyanosis;muscles-grossly intact INVESTIGATIONS, reviewed in the clinical context: August 26: White count 6.8 hemoglobin 11.6 potassium 3.3 creatinine 0.46 August 25: White count 6.8 hemoglobin 11.6 potassium 3.3 creatinine 0.46 August 23, 2024: White count 10.3 hemoglobin 12.5 platelets 203 potassium 3.6 creatinine 0.5 lactic acid 1.5 AST [address] abdomen pelvis: Acute cholecystitis. Malrotation of the left kidney. Appears to be partial fusion across the midline. Mild fatty infiltration of the liver. Abdominal ultrasound: Hydropic 13.3 cm in length. 2.2 x 1.9 cm echogenic foci within the gallbladder neck. CBD 1.0 cm. Assessment plan: -Acute cholecystitis with a stone at the gallbladder neck. With a dilated CBD.: Cholecystectomy on August 25 IV Levaquin. IV Flagyl Put on low fiber diet today -Depression anxiety Zoloft, Ativan -Tachycardia, hypertension Toprol-XL 25 mg -Nonalcoholic fatty liver disease/hepatic steatosis Follow-up with Dr. Janette Abdalla outpatient -Unilateral kidney congenital Diet resume by surgery. On IV antibiotics. Activity as tolerated. Thank you Dr. Bello Past Medical History Past Medical History: GERD/Reflux, Hyperlipidemia, Hypertension, Musculoskeletal Disorder, Pneumonia, Thyroid Disorder Additional Past Medical History / Comment(s): Ovarian Cancer. TACHYCARDIA, hx migraines, pneumonia 1999, diverticulitis caused rupture 04/21/18, thyroid nodules, hx anemia, born with one kidney. History of Any Multi-Drug Resistant Organisms: MRSA Year Discovered:: 01/2018 MDRO Source:: left shoulder Past Surgical History: Appendectomy, Bowel Resection, Breast Surgery, Hysterectomy, Orthopedic Surgery Additional Past Surgical History / Comment(s): LT shoulder Rotator cuff; RT BREAST biopsy, ANAL SX AT , bowel resection with colostomy 04/2018 Past Anesthesia/Blood Transfusion Reactions: Previous Problems w/ Anesthesia, Motion Sickness, Postoperative Nausea & Vomiting (PONV) Additional Past Anesthesia/Blood Transfusion Reaction / Comm: STATES SEVERE NAUSEA LASTED FOR ONE MONTH POST HYSTERECTOMY and bowel resection. DIFFICULTY WAKING UP AFTER SURGERY PER PT. Past Psychological History: Anxiety, Depression Smoking Status: Never smoker Past Alcohol Use History: None Reported Past Drug Use History: None Reported
--- NOTE | 2024-08-26 18:54 | P.PN ---
Subjective patient seen and evaluated bedside. Patient doing well masseuse some abdominal soreness. Objective - Vital Signs Vital signs: Vital Signs Temp 98.2 F 08/26/24 14:00 Pulse 87 08/26/24 14:00 Resp 17 08/26/24 14:00 BP 158/91 08/26/24 14:00 Pulse Ox 93 L 08/26/24 14:00 FiO2 Intake & Output 08/25/24 08/26/24 08/26/24 18:59 06:59 18:59 Intake Total 2100 300 354 Output Total 350 0 Balance 1750 300 354 Weight 73.936 kg Intake: IV 2100 300 Oral 354 Output: Urine 0 Estimated Blood Loss 350 Other: Voiding Method Toilet Toilet Diaper # Voids 3 0 3 # Bowel Movements 0 - Exam gen: nad cv: rrr pul: non labored breathing abd: soft, tender to palpation, no guarding or rebound tendernesssurgical site clean dry and intact, MAVIS drain service and was output - Labs CBC & Chem 7: 08/25/24 05:56 08/25/24 05:56 Assessment and Plan Assessment: 53-year-old female status post cholecystectomy Bedtimes tolerated Follow-up a.m. labs Possible discharge tomorrow Time with Patient: Less than 30
[2024-08-26 19:27] LABS: Basophils % (A) 0 %; Eosinophils # (A) 0.2 k/uL (0-0.7); Eosinophils % (A) 2 %; HCT 39.3 % (34.0-46.0); HGB 12.5 gm/dL (11.4-16.0); Lymphocytes # (A) 0.9 k/uL (1.0-4.8); Lymphocytes % (A) 10 %; MCH 27.6 pg (25.0-35.0); MCHC 31.9 g/dL (31.0-37.0); MCV 86.7 fL (80.0-100.0); Mean Platelet Volume 6.6; Monocytes # (A) 0.4 k/uL (0-1.0); Monocytes % (A) 5 %; Neutrophils # (A) 7.3 k/uL (1.3-7.7); Neutrophils % (A) 82 %; Platelet Count 317 k/uL (150-450); RBC 4.54 m/uL (3.80-5.40); RDW 13.6 % (11.5-15.5); WBC 8.9 k/uL (3.8-10.6)
[2024-08-26 19:44] LABS: ALT 32 U/L (4-34); AST 32 U/L (14-36); African American GFR (CKD) >90 (>60 ml/min/1.73 sqM); Albumin 3.3 g/dL (3.5-5.0); Albumin/Globulin Ratio 1.3; Alkaline Phosphatase 83 U/L (38-126); Anion Gap 7 mmol/L; Bilirubin,Unconjugated 0.4 mg/dL (0.0-1.1); Blood Urea Nitrogen 10 mg/dL (7-17); Calcium 8.6 mg/dL (8.4-10.2); Carbon Dioxide 23 mmol/L (22-30); Chloride 107 mmol/L (98-107); Globulin 2.5 g/dL; Glucose 116 mg/dL (74-99); Non-African American GFR(CKD) >90 (>60 ml/min/1.73 sqM); Potassium 3.8 mmol/L (3.5-5.1); Sodium 137 mmol/L (137-145); Total Bilirubin 0.6 mg/dL (0.2-1.3); Total Protein 5.8 g/dL (6.3-8.2)
[2024-08-27 07:11] VITALS: BP 176/98; PULSE 105; RESP 16; TEMP 98.3
[2024-08-27 08:32] LABS: Basophils % (A) 0 %; Eosinophils # (A) 0.2 k/uL (0-0.7); Eosinophils % (A) 2 %; HCT 41.3 % (34.0-46.0); HGB 13.2 gm/dL (11.4-16.0); Lymphocytes # (A) 0.9 k/uL (1.0-4.8); Lymphocytes % (A) 11 %; MCH 27.4 pg (25.0-35.0); MCHC 31.9 g/dL (31.0-37.0); MCV 85.9 fL (80.0-100.0); Mean Platelet Volume 6.3; Monocytes # (A) 0.5 k/uL (0-1.0); Monocytes % (A) 6 %; Neutrophils # (A) 6.4 k/uL (1.3-7.7); Neutrophils % (A) 80 %; Platelet Count 341 k/uL (150-450); RBC 4.81 m/uL (3.80-5.40); RDW 13.3 % (11.5-15.5)
[2024-08-27 08:43] LABS: ALT 32 U/L (4-34); AST 30 U/L (14-36); African American GFR (CKD) >90 (>60 ml/min/1.73 sqM); Albumin 3.5 g/dL (3.5-5.0); Albumin/Globulin Ratio 1.4; Alkaline Phosphatase 74 U/L (38-126); Anion Gap 11 mmol/L; Blood Urea Nitrogen 8 mg/dL (7-17); Calcium 8.8 mg/dL (8.4-10.2); Carbon Dioxide 24 mmol/L (22-30); Chloride 103 mmol/L (98-107); Globulin 2.5 g/dL; Glucose 109 mg/dL (74-99); Non-African American GFR(CKD) >90 (>60 ml/min/1.73 sqM); Potassium 3.5 mmol/L (3.5-5.1); Sodium 138 mmol/L (137-145); Total Bilirubin 0.5 mg/dL (0.2-1.3)
[2024-08-27] MEDS ORDERED: HYDROcodone/APAP 5-325MG 1 EACH TAB PO PRN (08:55)
--- NOTE | 2024-08-31 16:32 | CDI ---
Documentation Clarification Form Date: 08/31/2024 04:25:48 PM From: Stephanie Gann Phone: Admit Date: 08/22/2024 09:01:00 PM Patient Name: Nohemi Johnson Visit Number: [id number] Discharge Date: 08/27/2024 10:42:00 AM ATTENTION: The Clinical Documentation Specialists (CDI) and [facility] Coding Staff appreciate your assistance in clarifying documentation. Please respond to the clarification below the line at the bottom and electronically sign. The CDI & [facility] Coding staff will review the response and follow-up if needed. Please note: Queries are made part of the Legal Health Record. If you have any questions, please contact the author of this message via ITS. Doctor/Provider: Almas Abarca The final diagnosis of the pathology report states necrotic acute and chronic cholecystitis with cholelithiasis. Coding guidelines do not allow coding professionals to code based on pathology results; therefore, clarification is requested. History/risk factors: 53yo F, acute cholecystitis, GERD,HTN, HLD, MERCADO, OA, hypothyroid, congenital unilateral kidney, Hx ovarian cancer &ruptureddiverticulitis Clinical Indicators: 11.5 x 4.5 x 2.5 cm dusky red-purple gallbladder that has a 1 cm defect in the neck. The lumen contains purulent, dusky lau-red material and a 3. 5 x 2 x 2 cm ovoid, crystalline browncalculus. The mucosa is dusky dark red andulcerated. The wall is fibrous and up to 1 cm thick. The cysticduct is patent. Treatment: Laparoscopiccholecystectomy Please clarify if you agree with the pathology report diagnosis of necrotic acute and chronic cholecystitis with cholelithiasis: [ ] Yes [ ] No [ ] Other (please specify) [ ] Unable to determine (Template Last Revised: December 2020) MTDD
--- NOTE | 2024-09-01 09:47 | CDI ---
Documentation Clarification Form Date: 09/01/2024 09:44:43 AM From: Stephanie Gann Phone: Admit Date: 08/22/2024 09:01:00 PM Patient Name: Nohemi Johnson Visit Number: [id number] Discharge Date: 08/27/2024 10:42:00 AM ATTENTION: The Clinical Documentation Specialists (CDI) and [facility] Coding Staff appreciate your assistance in clarifying documentation. Please respond to the clarification below the line at the bottom and electronically sign. The CDI & [facility] Coding staff will review the response and follow-up if needed. Please note: Queries are made part of the Legal Health Record. If you have any questions, please contact the author of this message via ITS. Doctor/Provider: Madi Pennington The final diagnosis of the pathology report statesnecroticacute and chronic cholecystitis with cholelithiasis. Coding guidelines do not allow coding professionals to code based on pathology results; therefore, clarification is requested. History/risk factors: 53yo F,acute cholecystitis,GERD,HTN,HLD,MERCADO,OA, hypothyroid,congenitalunilateral kidney, Hxovarian cancer, ruptureddiverticulitis Clinical Indicators: 11. 5 x 4. 5 x 2. 5 cm dusky red-purple gallbladder that has a 1 cm defect in the neck. The lumen contains purulent, dusky lau-red material and a 3. 5 x 2 x 2 cm ovoid, crystalline browncalculus. The mucosa is dusky dark red andulcerated. The wall is fibrous and up to 1 cm thick. Thecysticduct is patent. Treatment:Laparoscopiccholecystectomy Please clarify if you agree with the pathology report diagnosis ofnecrotic acute and chronic cholecystitis with cholelithiasis: [ ] Yes [ ] No [ ] Other (please specify) [ ] Unable to determine (Template LastRevised: December 2020) MTDD
--- NOTE | 2024-09-19 22:42 | P.OP ---
Date of Procedure: 07/27/24 Preoperative Diagnosis: acute cholecystitis Postoperative Diagnosis: gangrenous cholecystitis Procedure(s) Performed: laparoscopic cholecystectomy Anesthesia: MILAGROS Surgeon: Madi Pennington Pathology: other (gallbladder) Condition: stable Disposition: floor Indications for Procedure: abdominal pain, US demonstrating acute cholecystitis Operative Findings: gangrenous cholecystitis Description of Procedure: The patient was brought to the operative suite where she was claned and drapred in sterile fashion. A timeout was performed and everyone agreed the information recited. Next, an incision was made in the left upper quadrant. A 5mm port was placed and 3 more working ports in the right upper quadrant and the periumbilical area. Upon entry the gallbladder appeared grangenous and thin- walled. The gallbladder was grasped and retracted to cephalad and lateral. Our dissection was carried out lateral to medial exposing the cystic duct first then the cystic artery. Once we had our critical view of safety exposed. Both the duct and artery were clipped. The gallbladder was removed the liver bed and placed in an endocatch bag and removed from the abdomen from the left upper quadrant incision. a hemostatic timeout was performed and no bleedng was o bserved. The left upper quadrant incision was closed using an o vicryl suture in an interrupted fashion. The skin was closed using 4-0 vicryl in an interrupted fashion. The patient was transported to pacu in stable condition.
== END 2024-08-27 10:42 | disposition home or self-care (01) | DRG 418 ==
LOC: EC 16:02 → 6NMEDSUR 21:01
PROVIDERS: ADMIT Surgery; ATTEND Surgery
PROC: 0FT44ZZ Resection of Gallbladder, Percutaneous Endoscopic Approach (ICD-10-PCS; principal; 2024-08-27)
DX: K80.12 Calculus of gallbladder with acute and chronic cholecystitis without obstruction (principal); Q60.0 Renal agenesis, unilateral; K82.A1 Gangrene of gallbladder in cholecystitis; E03.9 Hypothyroidism, unspecified; I10 Essential (primary) hypertension; F32.A Depression, unspecified; K76.0 Fatty (change of) liver, not elsewhere classified; K21.9 Gastro-esophageal reflux disease without esophagitis; E78.5 Hyperlipidemia, unspecified; F41.9 Anxiety disorder, unspecified; Z86.14 Personal history of Methicillin resistant Staphylococcus aureus infection; Z85.43 Personal history of malignant neoplasm of ovary; Z79.899 Other long term (current) drug therapy; Z90.49 Acquired absence of other specified parts of digestive tract; Z87.19 Personal history of other diseases of the digestive system
CPT/HCPCS: 36415; 74177; 74181; 76705; 80048; 80053; 80076; 81001; 82150; 83605; 83690; 85025; 88304; 93005; 96361; 96365; 96375; 96376; 99285